=== PATIENT | female | born 1970 | race Two or more races ===

== ENCOUNTER 2019-10-18 23:32 | Emergency (ER) | payer MEDICAID ==
[~2019-10-18] VITALS: Ht 165.1 cm; Wt 72.6 kg
[2019-10-18 23:36] VITALS: BP 114/72
[2019-10-19] MEDS ORDERED: LIDOCAINE 1% HCL (LOCAL ANESTH.) INJ 20ML MDV IJ ONE (00:45)
[2019-10-19] MEDS ORDERED: BACITRACIN TOP OINT 1 UD PKG TOP ONE (00:45)
[2019-10-19] MEDS ORDERED: traMADol HCL 50 MG TAB PO ONE (00:45)
[2019-10-19] MEDS ORDERED: cefTRIAXone SOD 1,000 MG VL IM ONE (02:00)
== END 2019-10-19 02:18 | disposition home or self-care (01) ==
LOC: EDBD 23:32 → ER 23:34
DX: S61.210A Laceration without foreign body of right index finger without damage to nail, initial encounter (principal); X58.XXXA Exposure to other specified factors, initial encounter; Y93.89 Activity, other specified; Y92.89 Other specified places as the place of occurrence of the external cause; Y99.8 Other external cause status
CPT/HCPCS: 12002; 29130; 73130; 96372; 99283; J0696; J2001

== ENCOUNTER 2021-05-27 04:25 | Emergency (ER) | payer MEDICAID ==
[~2021-05-27] VITALS: Ht 160 cm; Wt 76.2 kg
[2021-05-27 07:12] LABS: Urine Bacteria FEW /hpf (None Seen); Urine Blood Negative /uL (Negative); Urine Specific Gravity 1.019 (1.001-1.035); Urine WBC 3 /hpf (0 - 5)
[2021-05-27 07:22] LABS: Alcohol, Urine < 3.0 mg/dL (0-10); Amphetamine Screen, Urine POSITIVE (NEGATIVE); Barbiturate Scree,Urine NEGATIVE (NEGATIVE); Benzodiazephine Screen, Urine NEGATIVE (NEGATIVE); Cannabinoid Screen, Urine NEGATIVE (NEGATIVE); Cocaine Screen, Urine NEGATIVE (NEGATIVE); Opiate Scree,Urine NEGATIVE (NEGATIVE); Phencyclidine Screen, Urine NEGATIVE (NEGATIVE)
[2021-05-27 07:23] LABS: Basophils # (auto) 0.1 10 ^3/uL (0-0.2); Basophils % (auto) 0.9 % (0.0-2.0); Eosinophils # (auto) 0.2 10 ^3/uL (0-0.8); Eosinophils % (auto) 2.6 % (0.0-7.0); Hemoglobin 11.5 g/dL (12.2-16.2); Lymphocytes # (auto) 1.8 10 ^3/uL (0.4-5.4); Mean Corpuscular Hemoglobin 25.5 pg (28.0-32.0); Mean Corpuscular Volume 79.8 fL (80.0-100.0); Monocytes # (auto) 0.6 10 ^3/uL (0-1.3); Monocytes % (auto) 7.5 % (0.0-12.0); Neutrophils # (auto) 5.8 10 ^3/uL (1.6-8.6); Red Blood Cells 4.51 10^6/uL (4.0-5.20); Red Cell Distribution Width 16.1 % (11.8-14.3); White Blood Cell 8.6 10^3/uL (4.4-10.8)
[2021-05-27 07:28] LABS: Potassium 4.2 mmol/L (3.5-5.1)
[2021-05-27 07:34] LABS: Albumin 2.9 g/dL (3.4-5.0); BUN/Creatinine Ratio 24.4; Bilirubin, Total 0.1 mg/dL (0.2-1.0); Calcium 8.7 mg/dL (8.5-10.1); Total Protein 7.2 g/dL (6.4-8.2)
[2021-05-27] MEDS ORDERED: KETOROLAC TROMETH 60MG/2ML VIAL IM ONE (07:45)
[2021-05-27 09:08] VITALS: BP 131/74
== END 2021-05-27 08:58 | disposition home or self-care (01) ==
LOC: ER 04:25
DX: N20.0 Calculus of kidney (principal); K80.20 Calculus of gallbladder without cholecystitis without obstruction; F10.10 Alcohol abuse, uncomplicated; F15.10 Other stimulant abuse, uncomplicated; J45.909 Unspecified asthma, uncomplicated; F17.210 Nicotine dependence, cigarettes, uncomplicated; Y90.0 Blood alcohol level of less than 20 mg/100 ml
CPT/HCPCS: 36415; 74176; 80053; 80307; 81001; 85025; 96372; 99284; J1885

== ENCOUNTER 2022-02-25 16:27 | Emergency (ER) | payer MEDICAID | END 2022-02-25 17:05 | disposition left against medical advice (07) | LOC: EDBD 16:27 → ER 16:27 → EDUNIT# 16:27 → ER 17:05 | DX: R06.02 Shortness of breath (principal); Z53.21 Procedure and treatment not carried out due to patient leaving prior to being seen by health care provider ==

== ENCOUNTER 2023-01-12 08:21 | Emergency (ER) | payer MEDICAID ==
[~2023-01-12] VITALS: Ht 160 cm; Wt 72.7 kg
[2023-01-12] MEDS ORDERED: SODIUM CHLORIDE 0.9% 1,000 ML IV ONE (08:45)
[2023-01-12 08:56] LABS: Basophils # (auto) 0.1 10 ^3/uL (0-0.2); Basophils % (auto) 0.6 % (0.0-2.0); Eosinophils # (auto) 0.2 10 ^3/uL (0-0.8); Eosinophils % (auto) 1.7 % (0.0-7.0); Hematocrit 37.8 % (36.0-46.0); Hemoglobin 11.9 g/dL (12.2-16.2); Lymphocytes # (auto) 1.7 10 ^3/uL (0.4-5.4); Lymphocytes % (auto) 18.6 % (10.0-50.0); Mean Corpuscular Hemoglobin 24.6 pg (28.0-32.0); Mean Corpuscular Hgb Conc. 31.5 g/dL (32.0-36.0); Monocytes # (auto) 0.4 10 ^3/uL (0-1.3); Monocytes % (auto) 4.8 % (0.0-12.0); Neutrophils # (auto) 6.7 10 ^3/uL (1.6-8.6); Neutrophils % (auto) 74.3 % (37.0-80.0); Nucleated Red Blood Cells % 0.1 %; Red Blood Cells 4.85 10^6/uL (4.0-5.20); Red Cell Distribution Width 18.5 % (11.8-14.3)
[2023-01-12 09:10] LABS: Calcium 8.2 mg/dL (8.5-10.1); Magnesium 2.4 mg/dL (1.6-2.6); Potassium 3.8 mmol/L (3.5-5.1)
[2023-01-12 09:14] LABS: BUN/Creatinine Ratio 13.9 (10.0-20.0); Bilirubin, Total 0.3 mg/dL (0.2-1.0); Total Protein 7.1 g/dL (6.4-8.2)
[2023-01-12 09:28] LABS: INR 1.02 (0.9-1.15); Partial Thromboplastin Time 26.2 SEC (24.5-34.5)
[2023-01-12 13:19] VITALS: BP 135/92; PULSE 75; RESP 21; TEMP 97.9; O2SAT 98
== END 2023-01-12 13:22 | disposition home or self-care (01) ==
LOC: ER 08:21 → EDBD 08:21 → ER 13:22
DX: T67.5XXA Heat exhaustion, unspecified, initial encounter (principal); E86.0 Dehydration; J45.909 Unspecified asthma, uncomplicated; J44.9 Chronic obstructive pulmonary disease, unspecified; F17.210 Nicotine dependence, cigarettes, uncomplicated; F10.90 Alcohol use, unspecified, uncomplicated; Z98.51 Tubal ligation status; X58.XXXA Exposure to other specified factors, initial encounter; Y93.89 Activity, other specified; Y92.89 Other specified places as the place of occurrence of the external cause; Y99.8 Other external cause status
CPT/HCPCS: 36415; 71045; 80053; 82962; 83735; 83880; 84484; 85025; 85610; 85730; 93005; 96360; 99285; J7030

== ENCOUNTER 2024-05-04 18:59 | Inpatient (IN) | payer MEDICAID ==
[~2024-05-04] VITALS: Ht 157.5 cm; Wt 94.4 kg
--- NOTE | 2024-05-04 19:13 | ECG ---
[facility] Test Date: 2024-05-04 Test Time: 19:12:39 Pat Name: YASMIN MENA Department: ER Room: Gender: F Patient Observation Assistant: SVETLANA : 1970 Requested By: SANAZ RICKETTS Order Number: [id number] Reading MD: Measurements Intervals [place] Rate: 115 P: 60 MT: 145 QRS: 25 QRSD: 89 T: 118 QT: 331 QTc: 458 Interpretive Statements Sinus tachycardia Probable left atrial enlargement LVH with secondary repolarization abnormality Baseline wander in lead(s) V1,V2 Please click the below link to view image of tracing.
--- NOTE | 2024-05-04 19:21 | ED.PDOC ---
HPI Comments 53-year-old female came to ER due to chest pains. Patient does have history of methamphetamine abuse, and congestive heart failure. States she has been off her Lasix for over a month. For the past few days, patient has been having productive cough with yellowish green sputum, shortness of breath, and substernal chest pressure. Noted also episodes of diarrhea. Patient is saturating 98% on room air. Chief Complaint: Chest Pain Time Seen by MD: 19:20 Primary Care Provider: "I DON'T KNOW HIS NAME" Reviewed Notes: Nurses Notes Allergies: Coded Allergies: NO KNOWN ALLERGIES (Unverified , 10/18/19) Information Source: Patient Mode of Arrival: Ambulatory Severity: Moderate Timing: Days Duration: Since onset Prehospital treatment: None Location: Substernal Radiation: No Radiation Quality: Pressure, Aching Onset: With Light Exertion Cardiac Risk Factors: HTN PE Risk Factors: None History of: Similar pain in past Modifying Factors: Nothing Associated Signs and Symptoms: SOB, Diaphoresis Past Medical History PAST MEDICAL HISTORY: Asthma, CHF, COPD, Gallstones, Liver Surgical History: Tubal Ligation 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: No Pertinent INTERNET 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 Family History Family History: Reviewed,noncontributory to illness, Family hx of DM Social History Smoker: Cigarettes Alcohol: Occasionally Drugs: Methamphetamine Lives In: Home Constitutional: reports: fatigue, weakness; denies: chills, diaphoresis, fever, malaise, sweats, others EENTM: denies: blurred vision, double vision, ear bleeding, ear discharge, ear drainage, ear pain, ear ringing, eye pain, eye redness, hearing loss, mouth pain, mouth swelling, nasal discharge, nose bleeding, nose congestion, nose pain, photophobia, tearing, throat pain, throat swelling, voice changes, others Respiratory: reports: cough, SOB at rest, shortness of breath, SOB with excertion; denies: hemoptysis, orthopnea, stridor, wheezing, others Cardiovascular: reports: chest pain, dizzy spells, diaphoresis; denies: Dyspnea on exertion, edema, irregular heart beat, left arm pain, lightheadedness, palpitations, PND, syncope, others Gastrointestinal: denies: abdomen distended, abdominal pain, blood streaked bowels, constipated, diarrhea, dysphagia, difficulty swallowing, hematemesis, melena, nausea, poor appetite, poor fluid intake, rectal bleeding, rectal pain, vomiting, others Genitourinary: denies: abnormal vagina bleeding, burning, dyspareunia, dysuria, flank pain, frequency, hematuria, incontinence, pain, , vagina discharge, urgency, others Neurological: denies: dizziness, fainting, headache, left sided numbness, left sided weakness, numbness, paresthesia, pre-existing deficit, right sided numbness, right sided weakness, seizure, speech problems, tingling, tremors, weakness, others Musculoskeletal: denies: back pain, gout, joint pain, joint swelling, muscle pain, muscle stiffness, neck pain, others Integumetry: denies: bruises, change in color, change in hair/nails, dryness, laceration, lesions, lumps, rash, wounds, others Allergic/Immunocompromised: denies: Difficulty Healing, Frequent Infections, Hives, Itching, others Hematologic/Lymphatic: denies: anemia, blood clots, easy bleeding, easy bruising, swollen glands, others Endocrine: denies: excessive hunger, excessive sweating, excessive thirst, excessive urination, flushing, intolerance to cold, intolerance to heat, unexplained weight gain, unexplained weight loss, others Psychiatric: denies: anxiety, bipolar disorder, depression, hopeless, panic disorder, schizophrenia, sleepless, suicidal, others Physical Exam General Appearance: Mild Distress, Normal HEENT: Normal ENT Inspection, Pharynx Normal, TMs Normal Neck: Full Range of Motion, Non-Tender, Normal, Normal Inspection Respiratory: Chest Non-Tender, Decreased Breath Sounds, No Accessory Muscle Use, No Respiratory Distress Cardiovascular: No Edema, No JVD, No Murmur, No Gallop, Normal Peripheral Pulses, Regular Rate/Rhythm Breast Exam: Deferred Gastrointestinal: No Organomegaly, Non Tender, No Pulsatile Mass, Normal Bowel Sounds, Soft Genitalia: Deferred Pelvic: Deferred Rectal: Deferred Extremities: No calf tenderness, Normal capillary refill, Normal inspection, Normal range of motion, Non-tender, Pedal edema Musculoskeletal : Apperance: Normal Neurologic: Alert, screen and cyclone repairer II-XII nml as Tested, No Motor Deficits, Normal Affect, Normal Mood, No Sensory Deficits Cerebellar Function: Normal Reflexes: Normal Skin: Dry, Normal Color, Warm Lymphatic: No Adenopathy Was a procedure done? Was a procedure done?: No CP Differential Dx Differential Diagnosis: Angina, Anxiety / Panic Attack Differential Diagnosis: CHF, HTN Essential, Medical NonCompliance Differential Diagnosis: Angina, Chest Wall Pain, Costochondritis, Esophageal reflux/spasm, Gastritis, Myocardial Infarction X-Ray, Labs, Meds, VS Vital Signs Date Time Temp Pulse Resp B/P (MAP) Pulse Ox O2 Delivery O2 Flow Rate FiO2 05/04/24 19:12 115 05/04/24 19:11 99.0 119 20 140/87 (104) 96 Lab Test 05/04/24 20:05 05/04/24 19:15 Range/Units Troponin I High Sensitivity Pending 25 </=34 ng/L White Blood Count 7.9 4.4-10.8 10^3/uL Red Blood Count 4.48 4.0-5.20 10^6/uL Hemoglobin 8.9 L 12.2-16.2 g/dL Hematocrit 33.2 L 36.0-46.0 % Mean Corpuscular Volume 74.2 L 80.0-100.0 fL Mean Corpuscular Hemoglobin 19.8 L 28.0-32.0 pg Mean Corpuscular Hemoglobin Concent 26.7 L 32.0-36.0 g/dL Red Cell Distribution Width 19.3 H 11.8-14.3 % Platelet Count 248 140-450 10^3/uL Mean Platelet Volume 8.3 6.9-10.8 fL Neutrophils (%) (Auto) 76.5 37.0-80.0 % Lymphocytes (%) (Auto) 15.1 10.0-50.0 % Monocytes (%) (Auto) 5.4 0.0-12.0 % Eosinophils (%) (Auto) 2.1 0.0-7.0 % Basophils (%) (Auto) 0.9 0.0-2.0 % Neutrophils # (Auto) 6.1 1.6-8.6 10 ^3/uL Lymphocytes # (Auto) 1.2 0.4-5.4 10 ^3/uL Monocytes # (Auto) 0.4 0-1.3 10 ^3/uL Eosinophils # (Auto) 0.2 0-0.8 10 ^3/uL Basophils # (Auto) 0.1 0-0.2 10 ^3/uL Nucleated Red Blood Cells 0.4 % Platelet Estimate Pending Sodium Level 135 L 136-145 mmol/L Potassium Level 4.1 3.5-5.1 mmol/L Chloride Level 106 98-107 mmol/L Carbon Dioxide Level 24 20-31 mmol/L Anion Gap 5 5-15 Blood Urea Nitrogen 9 9-23 mg/dL Creatinine 0.73 0.550-1.02 mg/dL Glomerular Filtration Rate Calc 100 >90 mL/min BUN/Creatinine Ratio 12.3 10.0-20.0 Serum Glucose 175 H 74-106 mg/dL Calcium Level 8.3 L 8.7-10.4 mg/dL Total Bilirubin 0.4 0.2-1.0 mg/dL Aspartate Amino Transferase (AST) 24 13-40 U/L Alanine Aminotransferase (ALT) 42 H 7-40 U/L Alkaline Phosphatase 56 46-116 U/L Total Protein 6.6 5.7-8.2 g/dL Albumin 3.9 3.2-4.8 g/dL CHEST RADIOGRAPH FINDINGS: Lines and Tubes: None Lungs: No focal consolidation. Mild interstitial prominence which may be from lo w lung volume. Pleura: No effusion. No pneumothorax. Cardiomediastinal contours: [id number] cardiomegaly. Bones: No acute osseous abnormality. IMPRESSION: Mild interstitial prominence which may be from low lung volumes. Underlying mild pulmonary vascular congestion can not be excluded. Time of 1ST Reevaluation: 19:15 Reevaluation 1ST: Unchanged Patient Education/Counseling: Diagnosis, Treatment Family Education/Counseling: Diagnosis, Treatment Departure 1 Departure Time of Disposition: 20:16 (Patient presented with chest pain that was concerning for possible STEMI, ACS, PE, Pneumonia, Muscle Strain, COPD, Dissection. Data: 1. I ordered and reviewed the result of at least 3 labs including a CBC, BMP, and Troponin. 2. I independently interpreted the following tests: EKG which shows a sinus arrhythmia and Chest X-ray which shows pulmonary vascular congestion.Risk:This patient has a high risk of morbidity due to further diagnostic testing or treatment and may suffer from an acute cardiac or respiratory disorder. Workup reveals concern for CHF exacerbation and patient should be admitted for further workup and possible expert consultation. ) Impression: Primary Impression: Acute on chronic heart failure with reduced ejection fraction (HFrEF, <= 40%) and combined systolic and diastolic dysfunction Additional Impression: Acute chest pain Disposition: 09 ADMITTED INPATIENT Admit to: Med Surg Condition: Serious Critical Care Note Critical Care Time?: Yes (35 min-critical care time only) Critical care comment: Acute chest pain Authorized and Performed by: Sanaz Olivares MD Total critical care time: Approximately 38 minutes Due to a high probability of clinically significant, life threatening deterioration, the patient required my highest level of preparedness to intervene emergently and I personally spent this critical care time directly and personally managing the patient. This critical care time included obtaining a history; examining the patient; pulse oximetry; ordering and review of studies; arranging urgent treatment with development of a management plan; evaluation of patient's response to treatment; frequent reassessment; and, discussions with other providers. This critical care time was performed to assess and manage the high probability of imminent, life-threatening deterioration that could result in multi-organ failure. It was exclusive of separately billable procedures and treating other patients and teaching time. Please see my other sections and the rest of the note for further information on patient assessment and treatment. Stability Stability form required: No Heart Score Heart Score: Heart Score Response (Comments) Value History Moderate Suspicious 1 EKG Normal 0 Age 45-64 1 Risk Factors 1 or 2 risk factors 1 Troponin Normal limit 0 Total 3 I personally scribed for SANAZ OLIVARES MD ([email or web address]) on 05/04/24 at 19:21. Electronically submitted by Joel Singh ([employer]). I personally scribed for SANAZ OLIVARES MD ([email or web address]) on 05/04/24 at 19:44. Electronically submitted by Joel Singh ([employer]). SANAZ OLIVARES MD May 04, 2024 19:21
--- NOTE | 2024-05-04 19:40 | DVH ---
CHEST RADIOGRAPH Indication:CP Technique: Single frontal view of the chest was obtained Comparison: XY CHEST PORTABLE on DOS: 01/12/23 FINDINGS: Lines and Tubes: None Lungs: No focal consolidation. Mild interstitial prominence which may be from low lung volume. Pleura: No effusion. No pneumothorax. Cardiomediastinal contours: [id number] cardiomegaly. Bones: No acute osseous abnormality. IMPRESSION: Mild interstitial prominence which may be from low lung volumes. Underlying mild pulmonary vascular congestion can not be excluded.
[2024-05-04 19:46] LABS: Basophils # (auto) 0.1 10 ^3/uL (0-0.2); Basophils % (auto) 0.9 % (0.0-2.0); Eosinophils # (auto) 0.2 10 ^3/uL (0-0.8); Eosinophils % (auto) 2.1 % (0.0-7.0); Hematocrit 33.2 % (36.0-46.0); Hemoglobin 8.9 g/dL (12.2-16.2); Lymphocytes # (auto) 1.2 10 ^3/uL (0.4-5.4); Lymphocytes % (auto) 15.1 % (10.0-50.0); Mean Corpuscular Hemoglobin 19.8 pg (28.0-32.0); Mean Corpuscular Hgb Conc. 26.7 g/dL (32.0-36.0); Mean Corpuscular Volume 74.2 fL (80.0-100.0); Monocytes # (auto) 0.4 10 ^3/uL (0-1.3); Monocytes % (auto) 5.4 % (0.0-12.0); Neutrophils # (auto) 6.1 10 ^3/uL (1.6-8.6); Neutrophils % (auto) 76.5 % (37.0-80.0); Nucleated Red Blood Cells % 0.4 %; Platelet Count (auto) 248 10^3/uL (140-450); Red Blood Cells 4.48 10^6/uL (4.0-5.20); Red Cell Distribution Width 19.3 % (11.8-14.3); White Blood Cell 7.9 10^3/uL (4.4-10.8)
[2024-05-04 20:02] LABS: Alanine Aminotransferase 42 U/L (7-40); Albumin 3.9 g/dL (3.2-4.8); Alkaline Phosphatase 56 U/L (46-116); Anion Gap 5 (5-15); Aspartate Aminotransferase 24 U/L (13-40); BUN/Creatinine Ratio 12.3 (10.0-20.0); Blood Urea Nitrogen 9 mg/dL (9-23); Calcium 8.3 mg/dL (8.7-10.4); Carbon Dioxide 24 mmol/L (20-31); Chloride 106 mmol/L (98-107); Glucose 175 mg/dL (74-106); Potassium 4.1 mmol/L (3.5-5.1); Sodium 135 mmol/L (136-145)
[2024-05-04 20:03] LABS: Bilirubin, Total 0.4 mg/dL (0.2-1.0); Total Protein 6.6 g/dL (5.7-8.2)
[2024-05-04 20:31] VITALS: PULSE 118; RESP 20; O2SAT 97
[2024-05-04] MEDS ORDERED: ONDANSETRON HCL 4 MG/2 ML VIAL IV PRN (20:45)
[2024-05-04] MEDS ORDERED: ACETAMINOPHEN 325 MG TAB PO PRN (20:45)
[2024-05-04] MEDS ORDERED: NITROGLYCERIN 0.4 MG SL TAB SL PRN (20:45)
[2024-05-04] MEDS: FUROSEMIDE 40 MG/4 ML VIAL IV ONE (20:45)
[2024-05-04] MEDS ORDERED: MORPHINE SULFATE INJ 2 MG/ml SYRG IV PRN ×2 (20:45)
[2024-05-04 21:23] LABS: Hypochromia Marked; Ovalocytes FEW; Platelet Estimate Adequate; Tear Drop Cells FEW
[2024-05-04 21:31] LABS: Urine Bacteria None Seen /hpf (None Seen)
[2024-05-04 21:41] LABS: Urine Blood Negative /uL (Negative); Urine Clarity Clear (Clear); Urine Color Colorless (Yellow); Urine Protein, UAD Negative (Negative); Urine Specific Gravity 1.009 (1.001-1.035); Urine Urobilinogen Normal (Negative); Urine WBC <1 /hpf (0 - 5); Urine pH 6.5 (5.0-9.0)
[2024-05-04] MEDS: ENOXAPARIN SOD 40 MG/0.4 ML SYRINGE SC SCH (21:54)
[2024-05-04] MEDS: SODIUM CHLOR 0.9% PF (SALINE LOCK) 10ML VIAL/SYR IV SCH (21:55)
[2024-05-04 22:42] LABS: Urine Bacteria None Seen /hpf (None Seen)
--- NOTE | 2024-05-04 22:43 | DVHHPRES ---
History of Present Illness Resident Creating Document: MICHI KIRKPATRICK RESIDENT History of Present Illness YASMIN MENA is a 53 years old female with a PMH of CHF, COPD, asthma presented to the ED with the chief complaints of cough for past 2 days. Patient reported she has been having dry and productive cough for past 2 days which is associated with shortness of breath which is worsening with the chest pain which is pressure-like with no radiating, aggravating and relieving factors. Patient does report some episodes of orthopnea and PND. On my assessment patient denies fever, nausea, vomiting, palpitations, dizziness, diaphoresis, and other associated symptoms. Past Medical History CHF, COPD, asthma, gallstones, liver disease Past Surgical History BTL Review of Systems Constitutional: No: Fever, Chills, Sweats, Weakness, Malaise, Other Eyes: No: Pain, Vision change, Conjunctivae inflammation, Eyelid inflammation, Other, Redness ENT: No: Ear pain, Ear discharge, Nose pain, Nose discharge, Nose congestion, Mouth pain, Mouth swelling, Throat pain, Throat swelling, Other Respiratory: Cough, Shortness of breath, SOB with excertion Cardiovascular: Chest Pain Gastrointestinal: Nausea Genitourinary: No Dysuria, No Frequency, No Incontinence, No Hematuria, No Retention, No Other Musculoskeletal: No: other, neck pain, shoulder pain, arm pain, back pain, hand pain, leg pain, foot pain Skin: No: Rash, Lesions, Jaundice, Bruising, Other Neurological: No: Weakness, Numbness, Incoordination, Change in speech, Confusion, Seizures, Other Allergies: Coded Allergies: NO KNOWN ALLERGIES (Unverified , 10/18/19) Medications Current Medications Medications Dose Ordered Sig/Nam Route Start Time Stop Time Status Last Admin Dose Admin Sodium Chloride 10 ml Q8HR IV 05/04/24 22:00 05/04/24 21:55 10 ML Ondansetron HCl 4 mg Q4HP PRN IV 05/04/24 20:45 Acetaminophen 650 mg Q6HP PRN PO 05/04/24 20:45 Morphine Sulfate 2 mg Q4HPRN PRN IV 05/04/24 20:45 Enoxaparin Sodium 40 mg DAILY SC 05/04/24 20:45 05/04/24 21:54 40 MG Nitroglycerin 0.4 mg Q5MINP PRN SL 05/04/24 20:45 Morphine Sulfate 2 mg Q30M PRN IV 05/04/24 20:45 Furosemide 40 mg DAILY IV 05/05/24 10:00 UNV Albuterol 2.5 mg Q6HPRN PRN NEB 05/04/24 22:45 UNV Exam Vital Signs Vital Signs Date Time Temp Pulse Resp B/P (MAP) Pulse Ox O2 Delivery O2 Flow Rate FiO2 05/04/24 21:00 114 20 135/85 (102) 97 05/04/24 20:31 Room Air* 0 21 05/04/24 20:31 98.8 98.8 Exam Pt is lying on bed General Appearance: Alert, Oriented X3, Cooperative, mild distress HEENT: Atraumatic, Mucous membranes moist/pink Respiratory: Decreased breath sounds Cardiovascular: Regular rate, Normal S1, Normal S2, No murmurs Abdominal: Active bowel sounds, Soft, no distention, no tenderness Extremities: 1+ edema, Normal pulses, No tenderness/swelling Skin: No Significant rash, except past surgical scars Neuro: Normal speech, sensorimotor deficits none Psych/Mental Status: Mental status NL, Mood NL Nurse was there as sharperone during examination Labs/Xrays Labs Test 05/04/24 22:11 05/04/24 21:15 05/04/24 19:15 Range/Units Urine Color Colorless Yellow Urine Clarity Clear Clear Urine pH 6.5 5.0-9.0 Urine Specific Calvin 1.009 1.001-1.035 Urine Protein Negative Negative Urine Ketones Negative Negative Urine Blood Negative Negative /uL Urine Nitrite Negative Negative Urine Bilirubin Negative Negative Urine Urobilinogen Normal Negative mg/dL Urine Leukocyte Esterase Negative Negative /uL Urine RBC 2 0 - 4 /hpf Urine WBC <1 0 - 5 /hpf Urine Squamous Epithelial Cells Few <5 /hpf Urine Bacteria None seen None Seen /hpf Urine Glucose Normal Normal mg/dL White Blood Count 7.9 4.4-10.8 10^3/uL Red Blood Count 4.48 4.0-5.20 10^6/uL Hemoglobin 8.9 L 12.2-16.2 g/dL Hematocrit 33.2 L 36.0-46.0 % Mean Corpuscular Volume 74.2 L 80.0-100.0 fL Mean Corpuscular Hemoglobin 19.8 L 28.0-32.0 pg Mean Corpuscular Hemoglobin Concent 26.7 L 32.0-36.0 g/dL Red Cell Distribution Width 19.3 H 11.8-14.3 % Platelet Count 248 140-450 10^3/uL Mean Platelet Volume 8.3 6.9-10.8 fL Neutrophils (%) (Auto) 76.5 37.0-80.0 % Lymphocytes (%) (Auto) 15.1 10.0-50.0 % Monocytes (%) (Auto) 5.4 0.0-12.0 % Eosinophils (%) (Auto) 2.1 0.0-7.0 % Basophils (%) (Auto) 0.9 0.0-2.0 % Neutrophils # (Auto) 6.1 1.6-8.6 10 ^3/uL Lymphocytes # (Auto) 1.2 0.4-5.4 10 ^3/uL Monocytes # (Auto) 0.4 0-1.3 10 ^3/uL Eosinophils # (Auto) 0.2 0-0.8 10 ^3/uL Basophils # (Auto) 0.1 0-0.2 10 ^3/uL Nucleated Red Blood Cells 0.4 % Platelet Estimate Adequate Hypochromasia (manual) Marked Microcytosis Moderate Tear Drop Cells Few Ovalocytes Few Sodium Level 135 L 136-145 mmol/L Potassium Level 4.1 3.5-5.1 mmol/L Chloride Level 106 98-107 mmol/L Carbon Dioxide Level 24 20-31 mmol/L Anion Gap 5 5-15 Blood Urea Nitrogen 9 9-23 mg/dL Creatinine 0.73 0.550-1.02 mg/dL Glomerular Filtration Rate Calc 100 >90 mL/min BUN/Creatinine Ratio 12.3 10.0-20.0 Serum Glucose 175 H 74-106 mg/dL Calcium Level 8.3 L 8.7-10.4 mg/dL Total Bilirubin 0.4 0.2-1.0 mg/dL Aspartate Amino Transferase (AST) 24 13-40 U/L Alanine Aminotransferase (ALT) 42 H 7-40 U/L Alkaline Phosphatase 56 46-116 U/L Total Protein 6.6 5.7-8.2 g/dL Albumin 3.9 3.2-4.8 g/dL Assessment/Plan Assessment/Plan # ? systolic vs diastolic CHF exacerbation -ordered BNP -ordered echocardiogram, pending -currently on Lasix 40 mg IV -consider cardiology evaluation if needed -strict I&O -CXR showed pulmonary vascular congestion # ? COPD exacerbation -currently on albuterol med neb # tobacco dependence # tobacco abuse disorder -counseled regarding smoking cessation for more than 17 minutes -consider nicotine patch if needed # methamphetamine abuse disorder -counseled regarding cessation for more than 17 minutes # chronic microcytic, hypochromic anemia -monitor lab -ordered iron panel Lovenox for now No gi ppx Cardiac diet for now Discussed with the patient for more than 27 minutes: Full code status Case management discussed with Dr. Mendez, patient and nurse Plan discussed with: Patient My Orders Orders - MICHI KIRKPATRICK RESIDENT Procedure Category Date Status Time Admit ADMIT 05/04/24 Transmitted 20:31 Allergies MARTA 05/04/24 In Process 20:31 Code Status CODE 05/04/24 Transmitted 20:31 2 Gm Sodium Diet DIET 05/05/24 Transmitted Breakfast Sodium Chloride Lock PHA 05/04/24 In Process (Saline Lock Ns) 22:00 Ondansetron Hcl PHA 05/04/24 In Process (Zofran) 20:45 Complete Blood Count LAB 05/05/24 Verified 04:00 Comprehensive LAB 05/05/24 Verified Metabolic Panel 04:00 Cardiac DIET 05/05/24 Transmitted Diet-2gna,Lofat,Lochol Breakfast Echo 2d Mode Cardiac US 05/04/24 Logged DOP 20:31 Acetaminophen Tablet PHA 05/04/24 In Process (Tylenol Tablet) 20:45 Morphine Sulfate PHA 05/04/24 In Process Injection 20:45 Enoxaparin Sodium PHA 05/04/24 In Process (Lovenox) 20:45 Nitroglycerin PHA 05/04/24 In Process Sublingual (Ntrostat 20:45 Morphine Sulfate PHA 05/04/24 In Process Injection 20:45 Oxygen By Nasal RT 05/04/24 Transmitted Cannula 20:31 Stat Ekg For Chest MARTA 05/04/24 In Process Pain 20:31 Notify Of Changes MARTA 05/04/24 In Process From Base 20:31 Qa Specialist For MARTA 05/04/24 In Process 24 Hours 20:31 Emergency Dysrhythmia MARTA 05/04/24 In Process Protocol 20:31 Rhythm Strips Once MARTA 05/04/24 In Process Every Shift 20:31 B-Type Natriuretic LAB 05/04/24 In Process Peptide 20:31 PTPTT LAB 05/04/24 Logged 22:20 Hemoglobin A1c LAB 05/04/24 Logged 22:20 Drug Screen LAB 05/04/24 Logged 22:20 Vitamin D, 25-Hydroxy LAB 05/04/24 Logged 22:20 Vitamin B12 LAB 05/04/24 Logged 22:20 Urinalysis LAB 05/04/24 Logged 22:20 Thyroid Stimulating LAB 05/04/24 Logged Hormone 22:20 Bilat Lower Dvt US 05/04/24 Logged 22:28 D-Dimer LAB 05/04/24 Logged 22:20 Furosemide Injection PHA 05/05/24 Logged (Lasix Injection) 10:00 Albuterol Medneb PHA 05/04/24 Logged (Ventolin Medneb) 22:45 MICHI KIRKPATRICK RESIDENT May 04, 2024 22:43
[2024-05-04] MEDS ORDERED: ALBUTEROL SULF 2.5 MG/0.5ML(0.5%) NEB SOLN NEB PRN (22:45)
[2024-05-04 22:57] LABS: % Iron Saturation 6.9 % (15-50)
[2024-05-04 22:59] LABS: Urine Blood Negative /uL (Negative); Urine Clarity Clear (Clear); Urine Color Colorless (Yellow); Urine Mucus FEW (None Seen); Urine Protein, UAD Negative (Negative); Urine Specific Gravity 1.009 (1.001-1.035); Urine Urobilinogen Normal (Negative); Urine WBC 1 /hpf (0 - 5)
[2024-05-04 23:05] LABS: INR 1.03 (0.9-1.15); Partial Thromboplastin Time 24.4 SEC (24.5-34.5); Prothrombin Time 10.9 sec (9.3-11.8)
--- NOTE | 2024-05-04 23:05 | DVH ---
Bilateral lower extremity venous duplex Clinical History: pain in legs Comparison: None Technique: Duplex Doppler evaluation of the deep venous systems of both lower extremities from the common femora l veins to the popliteal veins including color Doppler and spectral/pulsed waveform analysis was perf ormed. Findings: RIGHT SIDE: The common femoral vein demonstrates appropriate compressibility and waveform variability. There is compressibility/patency of the great saphenous vein at the proximal thigh. The femoral vein demonstrates appropriate compressibility and waveform variability. The deep femoral vein demonstrates appropriate compressibility and waveform variability. The popliteal vein demonstrates appropriate compressibility and waveform variability. There is normal compressibility at the tibioperoneal trunk. LEFT SIDE: The common femoral vein demonstrates appropriate compressibility and waveform variability. There is compressibility/patency of the great saphenous vein at the proximal thigh. The femoral vein demonstrates appropriate compressibility and waveform variability. The deep femoral vein demonstrates appropriate compressibility and waveform variability. The popliteal vein demonstrates appropriate compressibility and waveform variability. There is normal compressibility at the tibioperoneal trunk. Impression: 1. No right or left femoropopliteal venous thrombosis.
[2024-05-04 23:15] VITALS: BP 118/71; PULSE 110; PULSE 122; RESP 18; TEMP 97.6; O2SAT 96
[2024-05-05] VITALS (12 sets, daily range): BP systolic 94–135; BP diastolic 58–85; PULSE 92–117; RESP 16–20; TEMP 97.7–98.7; O2SAT 94–100
[2024-05-05 07:31] LABS: Basophils # (auto) 0.1 10 ^3/uL (0-0.2); Eosinophils # (auto) 0.2 10 ^3/uL (0-0.8); Eosinophils % (auto) 2.4 % (0.0-7.0); Hematocrit 31.4 % (36.0-46.0); Hemoglobin 9.3 g/dL (12.2-16.2); Lymphocytes # (auto) 1.8 10 ^3/uL (0.4-5.4); Lymphocytes % (auto) 23.1 % (10.0-50.0); Mean Corpuscular Hemoglobin 19.7 pg (28.0-32.0); Mean Corpuscular Hgb Conc. 29.6 g/dL (32.0-36.0); Mean Corpuscular Volume 66.5 fL (80.0-100.0); Monocytes # (auto) 0.8 10 ^3/uL (0-1.3); Neutrophils # (auto) 4.9 10 ^3/uL (1.6-8.6); Neutrophils % (auto) 63.5 % (37.0-80.0); Nucleated Red Blood Cells % 0.3 %; Platelet Count (auto) 273 10^3/uL (140-450); Red Blood Cells 4.73 10^6/uL (4.0-5.20); Red Cell Distribution Width 18.5 % (11.8-14.3); White Blood Cell 7.7 10^3/uL (4.4-10.8)
[2024-05-05 07:36] LABS: Alanine Aminotransferase 34 U/L (7-40); Alkaline Phosphatase 53 U/L (46-116); Anion Gap 7 (5-15); Aspartate Aminotransferase 20 U/L (13-40); BUN/Creatinine Ratio 14.1 (10.0-20.0); Bilirubin, Total 0.5 mg/dL (0.2-1.0); Blood Urea Nitrogen 10 mg/dL (9-23); Calcium 8.9 mg/dL (8.7-10.4); Carbon Dioxide 26 mmol/L (20-31); Chloride 106 mmol/L (98-107); Glucose 121 mg/dL (74-106); Potassium 3.5 mmol/L (3.5-5.1); Sodium 139 mmol/L (136-145)
[2024-05-05] MEDS ORDERED: IPRATROPIUM BROM 0.5 MG/2.5ML INH SOL NEB SCH (09:15)
[2024-05-05] MEDS: ERGOCALCIFEROL 50,000 UNIT(1.25MG) CAP PO SCH (09:36)
[2024-05-05] MEDS: POTASSIUM EFFERVESENT TAB 25 MEQ PO ONE (09:37)
[2024-05-05] MEDS: FERROUS SULFATE 325mg EC TAB PO SCH (09:41)
[2024-05-05] MEDS: FUROSEMIDE 40 MG/4 ML VIAL IV SCH (09:44)
--- NOTE | 2024-05-05 09:50 | DVHINCON2 ---
Date Seen: May 05, 2024 Referring Physician MD Rakan Reason for Consultation CHF exacerbation History of Present Illness This is a 53-year-old female who presented to the emergency room with a chief complaint of chest pain for three days. Describes her chest pain as substernal, nonradiating, non provoked, pressure-like, and associated with ONTIVEROS, PND, SOTO, and lower extremity edema. The patient reports she was diagnosed with unspecified congestive heart failure at [facility] approximately two months ago. Reports running out of Lasix for over a month. Somehow she has failed to follow up with a counter molder in the outpatient setting. Admits to methamphetamine use since 2020 and quitting two weeks ago. She underwent a 12 lead electrocardiogram revealing a sinus tachycardia rhythm in the 110s bpm. Serial troponin levels are negative. Significant medical history includes unspecified congestive heart failure, COPD without O2 dependence, prediabetes, smoking history times 19 pack-years, methamphetamine use, and obesity. Past Medical History Past medical history reviewed. No other significant than mentioned above. Past Surgical History BTL Bilateral ears Family History: Patient reports no known family medical history. Family History Family history reviewed. Social History See HPI. Denies any use of alcohol. Allergies: Coded Allergies: NO KNOWN ALLERGIES (Unverified , 10/18/19) Home Meds Active Scripts Furosemide (Lasix) 20 Mg Tb, 1 TAB PO DAILY, #90 TAB 1 Refill Prov:JESSY AG MD 05/05/24 Spironolactone (Aldactone) 25 Mg Tab, 12.5 MG PO DAILY for 30 Days, #15 TAB Prov:JESSY AG MD 05/05/24 Metoprolol Tartrate (Lopressor) 25 Mg Tb, 12.5 MG PO BID for 30 Days, #30 TAB Prov:JESSY AG MD 05/05/24 Lisinopril (Lisinopril) 5 Mg Tab, 2.5 MG PO DAILY for 30 Days, #15 TAB Prov:JESSY AG MD 05/05/24 Empagliflozin (Jardiance) 10 Mg Tab, 10 MG PO DAILY for 30 Days, #30 TAB Prov:JESSY AG MD 05/05/24 Home Meds Home medications reviewed. Current Medications Current Medications Medications (Trade) Dose Ordered Sig/Nam Route PRN Reason Start Time Stop Time Status Last Admin Sodium Chloride (Saline Lock Ns) 10 ml Q8HR IV 05/04/24 22:00 05/05/24 05:05 Ondansetron HCl (Zofran) 4 mg Q4HP PRN IV NAUSEA / VOMITING 05/04/24 20:45 Acetaminophen (Tylenol Tablet) 650 mg Q6HP PRN PO PAIN SCALE 1-3 OR TEMP>100.4 05/04/24 20:45 Morphine Sulfate 2 mg Q4HPRN PRN IV SEVERE PAIN (7-10 PAIN SCALE) 05/04/24 20:45 Enoxaparin Sodium (Lovenox) 40 mg DAILY SC 05/04/24 20:45 05/05/24 09:44 Nitroglycerin (Ntrostat Sublingual) 0.4 mg Q5MINP PRN SL FOR CHEST PAIN 05/04/24 20:45 Morphine Sulfate 2 mg Q30M PRN IV FOR CHEST PAIN 05/04/24 20:45 Furosemide (Lasix Injection) 40 mg DAILY IV 05/05/24 10:00 Albuterol (Ventolin Medneb) 2.5 mg Q6HPRN PRN NEB SHORTNESS OF BREATH 05/04/24 22:45 05/05/24 09:11 DC Ergocalciferol (Vitamin D 50,000 Unit) 50,000 unit Q7D PO 05/05/24 08:45 05/05/24 09:36 Ferrous Sulfate 325 mg BIDWM PO 05/05/24 08:45 05/05/24 09:41 Ipratropium [place] (Atrovent Medneb) 0.5 mg Q4HWA NEB 05/05/24 09:15 Levalbuterol HCl (Xopenex Medneb) 0.625 mg Q6HR NEB 05/05/24 09:15 Review of Systems Constitutional: No symptom reported Ears, Nose, & Throat: No symptom reported Eyes: No symptom reported Neurological: ONTIVEROS Pulmonary/Respiratory: SOB Cardiovascular: Chest pain Gastrointestinal: No symptom reported Genitourinary: No symptom reported Musculoskeletal: No symptom reported Skin: No symptom reported Psychiatric: No symptom reported Endocrine: No symptom reported Hemotologic/Lymphatic: No symptom reported Vital Signs Vital Signs Date Time Temp Pulse Resp B/P (MAP) Pulse Ox O2 Delivery O2 Flow Rate FiO2 05/05/24 09:44 94/70 05/05/24 09:00 97.7 92 18 97 97.7 05/05/24 00:21 0.0 21 05/04/24 23:15 Room Air* Physical Exam General Appearance: Disheveled. Unkept. Obese. Moderate respiratory distress Head Exam: Normal inspection Neck Exam: Normal inspection. Non-tender. Normal alignment Pulmonary/Respiratory: Chest non-tender. Diminished bilateral breath sounds Cardiovascular/Chest: Regular rate and rhythm. S1, S2. NSR. No murmurs. No JVD. Peripheral Pulses: 2+ Radial (R). 2+ Radial (L). 2+ Pedal (R). 2+ Pedal (L) Abdominal Exam: Normal bowel sounds. Soft. Nontender. No hepatospenomegaly. No masses Ankle Exam: Negative ankle edema Lower extremities: Negative lower extremity edema Neuro/Mental Status: A&O x3. Coherent Thoughts/Psych: Normal thought pattern. Anxious Appearance: In no acute distress Skin Exam: Normal inspection. Normal color. Warm. Dry Labs/Diagnostic Data Labs Test 05/05/24 06:00 05/04/24 22:11 05/04/24 21:15 05/04/24 19:15 Range/Units White Blood Count 7.7 4.4-10.8 10^3/uL Red Blood Count 4.73 4.0-5.20 10^6/uL Hemoglobin 9.3 L 12.2-16.2 g/dL Hematocrit 31.4 L 36.0-46.0 % Mean Corpuscular Volume 66.5 #L 80.0-100.0 fL Mean Corpuscular Hemoglobin 19.7 L 28.0-32.0 pg Mean Corpuscular Hemoglobin Concent 29.6 L 32.0-36.0 g/dL Red Cell Distribution Width 18.5 H 11.8-14.3 % Platelet Count 273 140-450 10^3/uL Mean Platelet Volume 8.5 6.9-10.8 fL Neutrophils (%) (Auto) 63.5 37.0-80.0 % Lymphocytes (%) (Auto) 23.1 10.0-50.0 % Monocytes (%) (Auto) 10.0 0.0-12.0 % Eosinophils (%) (Auto) 2.4 0.0-7.0 % Basophils (%) (Auto) 1.0 0.0-2.0 % Neutrophils # (Auto) 4.9 1.6-8.6 10 ^3/uL Lymphocytes # (Auto) 1.8 0.4-5.4 10 ^3/uL Monocytes # (Auto) 0.8 0-1.3 10 ^3/uL Eosinophils # (Auto) 0.2 0-0.8 10 ^3/uL Basophils # (Auto) 0.1 0-0.2 10 ^3/uL Nucleated Red Blood Cells 0.3 % Sodium Level 139 136-145 mmol/L Potassium Level 3.5 3.5-5.1 mmol/L Chloride Level 106 98-107 mmol/L Carbon Dioxide Level 26 20-31 mmol/L Anion Gap 7 5-15 Blood Urea Nitrogen 10 9-23 mg/dL Creatinine 0.71 0.550-1.02 mg/dL Glomerular Filtration Rate Calc 103 >90 mL/min BUN/Creatinine Ratio 14.1 10.0-20.0 Serum Glucose 121 H 74-106 mg/dL Calcium Level 8.9 8.7-10.4 mg/dL Magnesium Level 2.0 1.6-2.6 mg/dL Total Bilirubin 0.5 0.2-1.0 mg/dL Aspartate Amino Transferase (AST) 20 13-40 U/L Alanine Aminotransferase (ALT) 34 7-40 U/L Alkaline Phosphatase 53 46-116 U/L Total Protein 7.0 5.7-8.2 g/dL Albumin 4.0 3.2-4.8 g/dL Prothrombin Time 10.9 9.3-11.8 sec Prothrombin Time INR 1.03 0.9-1.15 Activated Partial Thromboplast Time 24.4 L 24.5-34.5 SEC D-Dimer, Quantitative 0.69 H 0.0-0.49 mg/L FEU Hemoglobin A1c 6.1 H <5.7 % A1C Iron Level 33 L 50-170 ug/dL Total Iron Binding Capacity 477 H 250-425 ug/dL Percent Iron Saturation 6.9 L 15-50 % Troponin I High Sensitivity 25 </=34 ng/L B-Type Natriuretic Peptide 563.72 0-100 pg/mL Vitamin B12 Level 819 211-911 pg/mL Vitamin D 25-Hydroxy 36.0 30.0-100 ng/mL Thyroid Stimulating Hormone (TSH) 2.54 0.55-4.78 uIU/mL Urine Color Colorless Yellow Urine Clarity Clear Clear Urine pH 7.0 5.0-9.0 Urine Specific [place] 1.009 1.001-1.035 Urine Protein Negative Negative Urine Ketones Negative Negative Urine Blood Negative Negative /uL Urine Nitrite Negative Negative Urine Bilirubin Negative Negative Urine Urobilinogen Normal Negative mg/dL Urine Leukocyte Esterase Negative Negative /uL Urine RBC 2 0 - 4 /hpf Urine WBC 1 0 - 5 /hpf Urine Squamous Epithelial Cells Few <5 /hpf Urine Bacteria None seen None Seen /hpf Urine Mucus Few None Seen Urine Glucose Normal Normal mg/dL Platelet Estimate Adequate Hypochromasia (manual) Marked Microcytosis Moderate Tear Drop Cells Few Ovalocytes Few Assessment Acute on chronic decompensated HFrEF 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 Patrick) The patient presents with a more likely decompensated drug-induced cardiomyopathy with highly suspected HFrEF. Initiate GDMT for CHF and uptitrate as tolerated. Strict I&Os, daily weight and fluid restrictions. Continue transthoracic echocardiogram to further assess cardiac function. Strongly counseled on tobacco and methamphetamine use cessation as well as medical compliance. Monitor ECG changes and notify. Thank you for allowing us to p articipate in this patient's care. Please call if you have any questions or concerns. This medical document was created using an electronic medical record system with voice recognition software and computerized dictation system. Although this document has been carefully reviewed, there might still be some phonetic and typographical errors. Occasional wrong-word or ``sound-alike substitutions may have occurred due to the inherent limitations of voice recognition software. These areas are purely typographical due to imperfections of the software programs and do not reflect any compromise in the patient's medical care. Please read the chart carefully and recognize, using context, where these substitutions have occurred. Plan discussed with: Patient, Other Date of Service: May 05, 2024 Billing Provider: ANNIE PATRICK MD Cardiology Common Codes: 85206-QUEEXQQ INP/OBS CARE (High) CANDELARIO [facility] May 05, 2024 09:50
[2024-05-05] MEDS: METOPROLOL TARTRATE 25 MG TAB PO SCH (10:00)
[2024-05-05] MEDS: LISINOPRIL 5 MG TAB PO SCH (10:00)
[2024-05-05] MEDS: SPIRONOLACTONE 25 MG TAB PO SCH (11:10)
[2024-05-05] MEDS: EMPAGLIFLOZIN 10 MG TAB PO SCH (11:10)
[2024-05-05] MEDS: FUROSEMIDE 20 MG/2 ML VIAL IV ONE (11:11)
[2024-05-05 11:17] LABS: Triglycerides 112 mg/dL (< 150)
[2024-05-05 11:18] LABS: LDL Cholesterol 84 mg/dL (< 100)
[2024-05-05 11:19] LABS: Cholesterol 134 mg/dL (< 200); HDL Cholesterol 41 mg/dL (40-59)
[2024-05-05] MEDS ORDERED: MET25T PO (11:49)
[2024-05-05] MEDS ORDERED: SPIR25TA PO (11:49)
[2024-05-05] MEDS ORDERED: FURO1TAB33 PO (11:49)
[2024-05-05] MEDS ORDERED: EMPA1TAB PO (11:49)
[2024-05-05] MEDS ORDERED: LISI-275 PO (11:49)
--- NOTE | 2024-05-05 12:21 | DVHDSRES ---
Discharge Summary Date of Admission Resident Creating Document: DON FOSTER RESIDENT May 04, 2024 at 20:31 Date of Discharge: May 05, 2024 Admitting Diagnosis Chest pain Labs/Diagnostic Data: Laboratory Results Test 05/05/24 06:00 05/04/24 22:11 05/04/24 21:15 05/04/24 19:15 White Blood Count 7.7 10^3/uL (4.4-10.8) Red Blood Count 4.73 10^6/uL (4.0-5.20) Hemoglobin 9.3 g/dL (12.2-16.2) Hematocrit 31.4 % (36.0-46.0) Mean Corpuscular Volume 66.5 fL (80.0-100.0) Mean Corpuscular Hemoglobin 19.7 pg (28.0-32.0) Mean Corpuscular Hemoglobin Concent 29.6 g/dL (32.0-36.0) Red Cell Distribution Width 18.5 % (11.8-14.3) Platelet Count 273 10^3/uL (140-450) Mean Platelet Volume 8.5 fL (6.9-10.8) Neutrophils (%) (Auto) 63.5 % (37.0-80.0) Lymphocytes (%) (Auto) 23.1 % (10.0-50.0) Monocytes (%) (Auto) 10.0 % (0.0-12.0) Eosinophils (%) (Auto) 2.4 % (0.0-7.0) Basophils (%) (Auto) 1.0 % (0.0-2.0) Neutrophils # (Auto) 4.9 10 ^3/uL (1.6-8.6) Lymphocytes # (Auto) 1.8 10 ^3/uL (0.4-5.4) Monocytes # (Auto) 0.8 10 ^3/uL (0-1.3) Eosinophils # (Auto) 0.2 10 ^3/uL (0-0.8) Basophils # (Auto) 0.1 10 ^3/uL (0-0.2) Nucleated Red Blood Cells 0.3 % Sodium Level 139 mmol/L (136-145) Potassium Level 3.5 mmol/L (3.5-5.1) Chloride Level 106 mmol/L (98-107) Carbon Dioxide Level 26 mmol/L (20-31) Anion Gap 7 (5-15) Blood Urea Nitrogen 10 mg/dL (9-23) Creatinine 0.71 mg/dL (0.550-1.02) Glomerular Filtration Rate Calc 103 mL/min (>90) BUN/Creatinine Ratio 14.1 (10.0-20.0) Serum Glucose 121 mg/dL (74-106) Calcium Level 8.9 mg/dL (8.7-10.4) Magnesium Level 2.0 mg/dL (1.6-2.6) Total Bilirubin 0.5 mg/dL (0.2-1.0) Aspartate Amino Transferase (AST) 20 U/L (13-40) Alanine Aminotransferase (ALT) 34 U/L (7-40) Alkaline Phosphatase 53 U/L (46-116) Total Protein 7.0 g/dL (5.7-8.2) Albumin 4.0 g/dL (3.2-4.8) Triglycerides Level 112 mg/dL (< 150) Cholesterol Level 134 mg/dL (< 200) LDL Cholesterol 84 mg/dL (< 100) HDL Cholesterol 41 mg/dL (40-59) Prothrombin Time 10.9 sec (9.3-11.8) Prothrombin Time INR 1.03 (0.9-1.15) Activated Partial Thromboplast Time 24.4 SEC (24.5-34.5) D-Dimer, Quantitative 0.69 mg/L FEU (0.0-0.49) Hemoglobin A1c 6.1 % A1C (<5.7) Iron Level 33 ug/dL (50-170) Total Iron Binding Capacity 477 ug/dL (250-425) Percent Iron Saturation 6.9 % (15-50) Troponin I High Sensitivity 25 ng/L (</=34) B-Type Natriuretic Peptide 563.72 pg/mL (0-100) Vitamin B12 Level 819 pg/mL (211-911) Vitamin D 25-Hydroxy 36.0 ng/mL (30.0-100) Thyroid Stimulating Hormone (TSH) 2.54 uIU/mL (0.55-4.78) Urine Color Colorless (Yellow) Urine Clarity Clear (Clear) Urine pH 7.0 (5.0-9.0) Urine Specific [place] 1.009 (1.001-1.035) Urine Protein Negative (Negative) Urine Ketones Negative (Negative) Urine Blood Negative /uL (Negative) Urine Nitrite Negative (Negative) Urine Bilirubin Negative (Negative) Urine Urobilinogen Normal mg/dL (Negative) Urine Leukocyte Esterase Negative /uL (Negative) Urine RBC 2 /hpf (0 - 4) Urine WBC 1 /hpf (0 - 5) Urine Squamous Epithelial Cells Few /hpf (<5) Urine Bacteria None seen /hpf (None Seen) Urine Mucus Few (None Seen) Urine Glucose Normal mg/dL (Normal) Platelet Estimate Adequate Hypochromasia (manual) Marked Microcytosis Moderate Tear Drop Cells Few Ovalocytes Few Other Laboratory Tests 05/05/24 06:00 Brief Hx & Hospital Course: Jasmin Karimi is a 53 years old female patient with PMHx of questionable congestive heart failure, COPD, asthma presented to the ER with a chief complaint of chest pain for the past 3 days. Chest pain is located across the chest, radiates to the back, associated with nausea, shortness of breaths, orthopnea, paroxysmal nocturnal dyspnea. Patient reports feeling viral flu-like symptoms which included fever, cough which was dry alongside nausea and later on developing shortness of breath and chest pain. She reports the chest pain is not related to exertion. Patient reports that she was recently diagnosed with congestive heart failure at [facility] and she ran out of her furosemide 20 mg 1 month back, she reports using methamphetamine, last use was reported 2 weeks earlier. During the hospital workup, patient underwent EKG which showed sinus tachycardia but otherwise unremarkable. Serial troponins were negative. BNP was 5 6 3, patient had bibasilar crackles and lower extremity pitting edema. Patient received furosemide 40 mg IV once followed by 20 mg b.i.d. cardiology was consulted, and patient was diagnosed with decompensated drug induced cardiomyopathy with probable heart failure with reduced ejection fraction. GDMT was initiated which included metoprolol 12.5 mg p.o. b.i.d., lisinopril 2.5 mg p.o. daily, spironolactone 12.5 mg p.o. daily. She was strongly counseled on tobacco and methamphetamine use cessation as well as medical compliance. 05/05/2024-patient is hemodynamically stable, on room air, feeling better since the admission and is therefore discharged home with the recommendation to follow up discharge clinic and primary care physician within 7-14 days. Patient is discharged on Jardiance 10 mg, lisinopril 2.5 mg, metoprolol 12.5 mg twice daily, spironolactone 12.5 mg daily, furosemide 20 mg daily. Patient agreed to the discharge planning. Consults/Reason for consult Cardiology consulted for chest pain and shortness of breath Operations or Procedures ORDERING PHYSICIAN: MICHI KIRKPATRICK PROCEDURE(s): BLDVT - BiLat Lower DVT REASON: pain in legs ORDER NUMBER(s): [id number], ACCESSION NUMBER(s): [id number] Bilateral lower extremity venous duplex Clinical History: pain in legs Comparison: None Technique: Duplex Doppler evaluation of the deep venous systems of both lower extremities from the common femoral veins to the popliteal veins including color Doppler and spectral/pulsed waveform analysis was performed. Findings: RIGHT SIDE: The common femoral vein demonstrates appropriate compressibility and waveform variability. There is compressibility/patency of the great saphenous vein at the proximal thigh. The femoral vein demonstrates appropriate compressibility and waveform variability. The deep femoral vein demonstrates appropriate compressibility and waveform variability. The popliteal vein demonstrates appropriate compressibility and waveform variability. There is normal compressibility at the tibioperoneal trunk. LEFT SIDE: The common femoral vein demonstrates appropriate compressibility and waveform variability. There is compressibility/patency of the great saphenous vein at the proximal thigh. The femoral vein demonstrates appropriate compressibility and waveform variability. The deep femoral vein demonstrates appropriate compressibility and waveform variability. The popliteal vein demonstrates appropriate compressibility and waveform variability. There is normal compressibility at the tibioperoneal trunk. Impression: 1. No right or left femoropopliteal venous thrombosis. RING PHYSICIAN: SANAZ RICKETTS MD PROCEDURE(s): CXRP - CHEST PORTABLE REASON: CP ORDER NUMBER(s): [id number], ACCESSION NUMBER(s): [id number] CHEST RADIOGRAPH Indication:CP Technique: Single frontal view of the chest was obtained Comparison: XY CHEST PORTABLE on DOS: 01/12/23 FINDINGS: Lines and Tubes: None Lungs: No focal consolidation. Mild interstitial prominence which may be from low lung volume. Pleura: No effusion. No pneumothorax. Cardiomediastinal contours: [id number] cardiomegaly. Bones: No acute osseous abnormality. IMPRESSION: Mild interstitial prominence which may be from low lung volumes. Underlying mild pulmonary vascular congestion can not be excluded. 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 Likely iron-deficiency anemia COPD-low likelihood of exacerbation Prediabetes, newly diagnosed Methamphetamine/nicotine dependence Medical noncompliance Obesity Discharge Disposition: Home Discharge Instruct/Medications Diet: Cardiac 2g Na,low cholest (2 gm sodium, low cholesterol) Activity: Light activity Follow Up/Referral: Follow up with primary care physician within 7-14 days Follow up with discharge clinic appointment within 7-14 days Discharge Statement: "Patient was advised to return to the ER or call 911 if any headaches, dizziness, shortness of breath, chest pain, abdominal pain, bleeding, fevers, or worsening of medical condition. Patient was counseled about treatment plan, medications, possible side effects, patientverbalized understanding. All questions were answered to the best of my ability. This discharge took greater then 30 minutes in planning, reviewing documentation, counseling the patient, and discussing with other team members." ASSESSMENT ASSESSMENT Assessment Date of Service: May 05, 2024 Billing Provider: JESSY AG MD Common Visit Codes: 39754-AOW/OBS DISCH DAY >30min DON FOSTER RESIDENT May 05, 2024 12:21 JESSY AG MD May 06, 2024 16:44
[2024-05-05] MEDS: LEVALBUTEROL HCL 1.25 MG/3 ML NEB NEB SCH (13:31)
[2024-05-05 13:32] LABS: Amphetamine Screen, Urine Neg (NEGATIVE); Benzodiazephine Screen, Urine Neg (NEGATIVE)
[2024-05-05] MEDS: IPRATROPIUM BROM 0.5 MG/2.5ML INH SOL NEB SCH (13:32)
[2024-05-05 13:33] LABS: Barbiturate Scree,Urine Neg (NEGATIVE); Cannabinoid Screen, Urine Neg (NEGATIVE); Cocaine Screen, Urine Neg (NEGATIVE); Opiate Scree,Urine Neg (NEGATIVE); Phencyclidine Screen, Urine Neg (NEGATIVE)
[2024-05-05] MEDS ORDERED: FUROSEMIDE 20 MG/2 ML VIAL IV SCH (18:00)
[2024-05-05] MEDS ORDERED: LEVALBUTEROL HCL 1.25 MG/3 ML NEB NEB SCH (18:00)
--- NOTE | 2024-05-05 19:20 | ECG ---
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
--- NOTE | 2024-05-06 11:41 | DVHSR ---
APPROVED REPORT EXAM: Two-dimensional and M-mode echocardiogram with Doppler and color Doppler. Blood Pressure: 119/82 mmHg INDICATION Chest Pain RISK FACTORS Obesity: Height: 5' 2", Weight: 208 DIMENSIONS LVDd6.0 (3.8-5.7cm)LA (2D)3.8 (1.9-4.0cm)Aortic Root3.0 (2.0-3.7cm) LVDs5.6 (2.5-4.0cm)LA (MM) (1.9-4.0cm)Aortic Cusp Exc1.8 (1.5-2.0cm) EF (%) 15.0 (55-70%)Rt. Atrium4.0 (1.9-4.0cm)Asc. Aorta cm IVSd1.0 (0.7-1.1cm)RV (D) (1.8-2.4cm) PWd1.1 (0.7-1.1cm) Mitral Valve MitralMitral Stenosis E wave0.80m/sMV Mean GR.mmHg A wave0.60m/sMV Peak GR.mmHg E/A ratio1.32D MVAcm2 Aortic Valve Aortic ValveAortic Stenosis V10.60m/Sj Mean GR.5mmHg V21.50m/Sj Peak GR.9mmHg LVOT Diameter2.3 (1.8-2.4cm)Doppler AVA1.66cm2 Pulmonic Valve V20.80m/s Conclusion Severely dilated left ventricle. Severely reduced left ventricular systolic function estimated eject ion fraction of 15% in a global fashion. There is a grade2 diastolic dysfunction. Normal right ventricular size and dimension. Normal right ventricular systolic function. Normal biatrial size and dimension. Normal aortic valve structure and function. Normal mitral valve structure and function. Normal tricuspid valve structure and function. The pulmonary valve is grossly normal. No pericardial effusion
--- NOTE | 2024-05-07 08:17 | ECG ---
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
== END 2024-05-05 17:50 | disposition home or self-care (01) | DRG 194 ==
LOC: ER 18:59 → TELE 20:31 → TELE-WESTW 23:15
PROVIDERS: ATTEND Emergency Medicine
DX: I11.0 Hypertensive heart disease with heart failure (principal); I42.7 Cardiomyopathy due to drug and external agent; D63.8 Anemia in other chronic diseases classified elsewhere; F15.10 Other stimulant abuse, uncomplicated; D50.9 Iron deficiency anemia, unspecified; E66.9 Obesity, unspecified; F17.210 Nicotine dependence, cigarettes, uncomplicated; J44.89 Other specified chronic obstructive pulmonary disease; I50.43 Acute on chronic combined systolic (congestive) and diastolic (congestive) heart failure; T50.905A Adverse effect of unspecified drugs, medicaments and biological substances, initial encounter; R73.03 Prediabetes; K80.20 Calculus of gallbladder without cholecystitis without obstruction; Z71.6 Tobacco abuse counseling; Z91.199 Patient's noncompliance with other medical treatment and regimen due to unspecified reason; Y92.89 Other specified places as the place of occurrence of the external cause; Z79.899 Other long term (current) drug therapy; Z68.38 Body mass index [BMI] 38.0-38.9, adult
CPT/HCPCS: 36415; 71045; 80053; 80061; 80307; 81001; 82306; 82607; 83036; 83540; 83550; 83735; 83880; 84443; 84484; 85025; 85379; 85610; 85730; 93005; 93306; 93970; 94640; 99291; G0378

== ENCOUNTER 2024-12-29 21:33 | Inpatient (IN) | payer MEDICAID ==
[~2024-12-29] VITALS: Ht 167.6 cm; Wt 96.1 kg
[~2024-12-29 21:33] MED LIST: EMPA1TAB PO; FURO1TAB33 PO; LISI-275 PO; MET25T PO; SPIR25TA PO
--- NOTE | 2024-12-29 21:58 | ECG ---
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
--- NOTE | 2024-12-29 21:58 | ED.PDOC ---
History of Present Illness HPI Comments 54 year old female with a history of gallstones, COPD and CHF brought in by EMS complaining of back pain. Pt states for the past 3 days she has been having constant, stabbing, lower back pain, radiating to her left and right lower abdomen. Pt states back pain worsens when bending forward or moving.. Pt also st ates her LLE feels numb, and she has been having urinary incontinence. This is associated with dysuria, urinary frequency, urgency, and hematuria. 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 Allergies: Coded Allergies: NO KNOWN ALLERGIES (Unverified , 10/18/19) Home Meds Active Scripts Furosemide (Lasix) 20 Mg Tb, 1 TAB PO DAILY, #90 TAB 1 Refill Prov:JESSY AG MD 05/05/24 Spironolactone (Aldactone) 25 Mg Tab, 12.5 MG PO DAILY for 30 Days, #15 TAB Prov:JESSY AG MD 05/05/24 Metoprolol Tartrate (Lopressor) 25 Mg Tb, 12.5 MG PO BID for 30 Days, #30 TAB Prov:JESSY GA MD 05/05/24 Lisinopril (Lisinopril) 5 Mg Tab, 2.5 MG PO DAILY for 30 Days, #15 TAB Prov:JESSY AG MD 05/05/24 Empagliflozin (Jardiance) 10 Mg Tab, 10 MG PO DAILY for 30 Days, #30 TAB Prov:JESSY AG MD 05/05/24 Information Source: Patient, Emergency Med Personnel Mode of Arrival: EMS Severity: Moderate Timing: Days Duration: Since onset Past Medical History PAST MEDICAL HISTORY: Asthma, CHF, COPD, Gallstones, Liver Surgical History: 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 History: No Pertinent FIELD TALENT QUALIFICATION SPECIALIST History Family History Family History: Reviewed,noncontributory to illness, Family hx of DM Social History Smoker: Cigarettes Alcohol: Occasionally Drugs: Methamphetamine Lives In: Home Constitutional: denies: chills, diaphoresis, fatigue, fever, malaise, sweats, weakness, others EENTM: denies: blurred vision, double vision, ear bleeding, ear discharge, ear drainage, ear pain, ear ringing, eye pain, eye redness, hearing loss, mouth pain, mouth swelling, nasal discharge, nose bleeding, nose congestion, nose pain, photophobia, tearing, throat pain, throat swelling, voice changes, others Respiratory: denies: cough, hemoptysis, orthopnea, SOB at rest, shortness of breath, SOB with excertion, stridor, wheezing, others Cardiovascular: denies: chest pain, dizzy spells, diaphoresis, Dyspnea on exertion, edema, irregular heart beat, left arm pain, lightheadedness, palpitat ions, PND, syncope, others Gastrointestinal: reports: abdominal pain (LLQ); denies: abdomen distended, blood streaked bowels, constipated, diarrhea, dysphagia, difficulty swallowing, hematemesis, melena, nausea, poor appetite, poor fluid intake, rectal bleeding, rectal pain, vomiting, others Genitourinary: reports: burning, dysuria, frequency, incontinence; denies: abnormal vagina bleeding, dyspareunia, flank pain, hematuria, pain, , vagina discharge, urgency, others Neurological: denies: dizziness, fainting, headache, left sided numbness, left sided weakness, numbness, paresthesia, pre-existing deficit, right sided numbness, right sided weakness, seizure, speech problems, tingling, tremors, weakness, others Musculoskeletal: reports: back pain Physical Exam General Appearance: No Apparent Distress, Obese HEENT: Other (Pupils and face symmetric. Moist mucous membranes. ) Neck: Full Range of Motion, Non-Tender, Normal Inspection, Supple Respiratory: Lungs Clear, No Accessory Muscle Use, No Respiratory Distress, Normal Breath Sounds Cardiovascular: No Edema, No JVD, Regular Rate/Rhythm Breast Exam: Deferred Gastrointestinal: LLQ, RLQ, Soft, Tenderness Genitalia: Deferred Pelvic: Deferred Rectal: Deferred Extremities: Normal inspection, Normal range of motion, Non-tender, No pedal edema Neurologic: Alert (Oriented x4), Normal Affect, Normal Mood Cerebellar Function: NOT DONE Reflexes: NOT DONE Skin: Dry, Normal Color, Warm Lymphatic: NOT DONE Was a procedure done? Was a procedure done?: No EKG EKG : Comments Sinus tach, rate 110, normal KS and QRS intervals, QTC 473, normal axis, normal QRS, minimal inferior ST-depression with other nonspecific T change Differential Dx Considerations may include: Musculoskeletal pain, disc disease, cauda equina, UTI, among others X-Ray, Labs, Meds, VS Vital Signs Date Time Temp Pulse Resp B/P (MAP) Pulse Ox O2 Delivery O2 Flow Rate FiO2 12/30/24 00:42 97.7 104 16 106/67 (80) 93 97.7 12/29/24 22:43 105 12/29/24 22:43 98.0 105 18 124/71 (88) 93 98.0 12/29/24 22:42 105 20 124/71 12/29/24 21:52 110 12/29/24 21:40 98.9 113 15 141/94 (110) 99 98.9 Lab Test 12/29/24 22:41 Range/Units White Blood Count 6.7 4.4-10.8 10^3/uL Red Blood Count 4.93 4.0-5.20 10^6/uL Hemoglobin 9.3 L 12.2-16.2 g/dL Hematocrit 31.6 L 36.0-46.0 % Mean Corpuscular Volume 64.0 L 80.0-100.0 fL Mean Corpuscular Hemoglobin 18.8 L 28.0-32.0 pg Mean Corpuscular Hemoglobin Concent 29.4 L 32.0-36.0 g/dL Red Cell Distribution Width 21.4 H 11.8-14.3 % Platelet Count 195 140-450 10^3/uL Mean Platelet Volume 8.7 6.9-10.8 fL Neutrophils (%) (Auto) 68.1 37.0-80.0 % Lymphocytes (%) (Auto) 20.2 10.0-50.0 % Monocytes (%) (Auto) 7.5 0.0-12.0 % Eosinophils (%) (Auto) 2.8 0.0-7.0 % Basophils (%) (Auto) 1.4 0.0-2.0 % Neutrophils # (Auto) 4.6 1.6-8.6 10 ^3/uL Lymphocytes # (Auto) 1.4 0.4-5.4 10 ^3/uL Monocytes # (Auto) 0.5 0-1.3 10 ^3/uL Eosinophils # (Auto) 0.2 0-0.8 10 ^3/uL Basophils # (Auto) 0.1 0-0.2 10 ^3/uL Nucleated Red Blood Cells 0.0 % Platelet Estimate Adequate Hypochromasia (manual) Marked Anisocytosis (manual) Moderate Microcytosis Marked Sodium Level 143 136-145 mmol/L Potassium Level 4.0 3.5-5.1 mmol/L Chloride Level 107 98-107 mmol/L Carbon Dioxide Level 28 20-31 mmol/L Anion Gap 8 5-15 Blood Urea Nitrogen 13 9-23 mg/dL Creatinine 0.81 0.550-1.02 mg/dL Glomerular Filtration Rate Calc 87 >90 mL/min BUN/Creatinine Ratio 16.0 10.0-20.0 Serum Glucose 105 74-106 mg/dL Calcium Level 9.6 8.7-10.4 mg/dL Total Bilirubin 0.3 0.2-1.0 mg/dL Aspartate Amino Transferase (AST) 27 13-40 U/L Alanine Aminotransferase (ALT) 28 7-40 U/L Alkaline Phosphatase 65 46-116 U/L Total Protein 7.2 5.7-8.2 g/dL Albumin 4.3 3.2-4.8 g/dL Current Medications Medications (Trade) Dose Ordered Sig/Nam Route Start Time Stop Time Status Last Admin Morphine Sulfate 4 mg ONCE ONCE IV 12/29/24 22:00 12/29/24 22:01 DC 12/29/24 22:42 Ondansetron HCl (Zofran) 4 mg ONCE ONCE IV 12/29/24 22:00 12/29/24 22:01 DC 12/29/24 22:43 Methocarbamol (Robaxin) 1,000 mg ONCE ONCE PO 12/29/24 22:00 12/29/24 22:01 DC 12/29/24 22:41 PROCEDURE(s): ABPL - CT AB PEL WO CON-NO ORAL OR IV REASON: low abd pain ORDER NUMBER(s): [id number], ACCESSION NUMBER(s): [id number] CLINICAL HISTORY: low abd pain TECHNIQUE: CT of the abdomen and pelvis was performed without intravenous contrast. This exam was performed according to our departmental dose optimization program. Up-to-date CT equipment and radiation dose reduction techniques are utilized as appropriate. CTDI: 21.17 DLP: 1200.05 WID: COMPARISON: CT ABD PELVIS WO CONTRAST on DOS: 05/27/21 FINDINGS: Lower Thorax: Cardiomegaly. Hypodensity of the blood pool relative to the myocardium indicative of anemia. Linear bibasilar scarring or atelectasis. Liver and Biliary system: Hepatomegaly measuring 22 cm craniocaudal. No definite hepatic lesion. Cholelithiasis. No biliary ductal dilatation. Spleen: Mild splenomegaly. Adrenal Glands and Kidneys: Normal adrenal glands. Tiny nonobstructing bilateral renal calculi. There are bilateral low-density renal lesions which are not optimally evaluated without contrast though may reflect cysts. No hydronephrosis Pancreas and Retroperitoneum: Unremarkable. Aorta and Major Vessels: Aortoiliac vessels are normal in caliber. Bowel, Mesentery and Peritoneal space: Normal caliber small and large bowel. Normal appendix. No free air or fluid collection. Pelvis: Urinary bladder is unremarkable. There is no pelvic lymphadenopathy. There is a cystic lesion in the right uterine fundus unchanged on series 2, image 75. The ovaries are grossly unremarkable. Abdominal wall and Osseous Structures: Multilevel lower thoracic and lumbar spondylosis. Grade 1 anterolisthesis at L5-S1. No destructive osseous lesion. IMPRESSION: No bowel obstruction, fluid collection, or free air. Normal appendix. Mild hepatosplenomegaly. Mild Cardiomegaly. Hypodensity of the blood pole relative to the myocardium indicative of anemia. Correlate with CBC. Cholelithiasis. Tiny nonobstructing bilateral renal calculi. EDURE(s): LS2CT - LS SPINE WO CONTRAST REASON: low back pain, urinary incont ORDER NUMBER(s): [id number], ACCESSION NUMBER(s): [id number] CLINICAL HISTORY: low back pain, urinary incont TECHNIQUE: CT of the lumbar spine was performed without intravenous contrast. This exam was performed according to our departmental dose optimization program. Up-to-date CT equipment and radiation dose reduction techniques are utilized as appropriate. COMPARISON: None FINDINGS: There are 5 [id number] lumbar type vertebral bodies. Grade 1 anterolisthesis L5-S1 otherwise normal alignment. Vertebral body heights are maintained. No acute fracture. There is moderate degenerative disc space narrowing at L5-S1. There is no high-grade neural foraminal or spinal stenosis. There is a diffuse disc bulge, facet hypertrophy, and ligamentum flavum thickening resulting in mild spinal stenosis and mild bilateral neural foraminal stenosis at L4-L5. There is grade 1 anterolisthesis and diffuse disc osteophyte complex at L5-S1 resulting in moderate left and mild right neural foraminal stenosis. The posterior paraspinal soft tissues are intact. IMPRESSION: No acute fracture or traumatic malalignment. Moderate degenerative disc space narrowing at L5-S1. Multilevel lumbar spondylosis. At L4-L5 there is mild spinal stenosis and mild bilateral neural foraminal stenosis and at L5-S1 there is moderate left and mild right neural foraminal stenosis. X-Ray, Labs, Meds, VS Comment 54 year old female with a history of gallstones, COPD and CHF brought in by EMS complaining of back pain Vitals remarkable for heart rate 113, BP 141/94 Exam remarkable for midline and paraspinal lumbar tenderness to palpation, bilateral lower quadrant tenderness to palpation Rhythm strip independently interpreted by me: Sinus tach, rate one hundred ten, no ectopy. CT abdomen and pelvis without contrast IMPRESSION: No bowel obstruction, fluid collection, or free air. Normal appendix. Mild hepatosplenomegaly. Mild Cardiomegaly. Hypodensity of the blood pole relative to the myocardium indicative of anemia. Correlate with CBC. Cholelithiasis. Tiny nonobstructing bilateral renal calculi. CT lumbar spine without contrast IMPRESSION: No acute fracture or traumatic malalignment. Moderate degenerative disc space narrowing at L5-S1. Multilevel lumbar spondylosis. At L4-L5 there is mild spinal stenosis and mild bilateral neural foraminal stenosis and at L5-S1 there is moderate left and mild right neural foraminal stenosis. CBC and CMP unremarkable. UA pending. Patient treated with the following in the ED: Morphine 4 mg IV x2, Zofran 4 mg IV, Robaxin 1 g p.o., Rocephin 1 g IV On re-evaluation, patient states pain has slightly improved, but she is still in moderate discomfort and is unable to stand or ambulate. Plan is to admit the patient for pain control, spine MRI and ortho/spine evaluation if necessary. Time of 1ST Reevaluation: 21:51 Reevaluation 1ST: Unchanged Patient Education/Counseling: Diagnosis, Treatment Family Education/Counseling: No Family Present SEPSIS Sepsis Screen Physician Orders Urinalysis (12/29/24 21:52) Ct Ab Pel Wo Con-No Oral Or Iv (12/29/24 21:52) Ls Spine Wo Contrast (12/29/24 21:52) Insert/Manage Urinary Catheter QSHIFT (12/29/24 21:52) Drug Screen (12/29/24 21:52) Vital Signs Date Time Temp Pulse Resp B/P (MAP) Pulse Ox O2 Delivery O2 Flow Rate FiO2 12/30/24 00:42 97.7 104 16 106/67 (80) 93 97.7 12/29/24 22:43 105 12/29/24 22:43 98.0 105 18 124/71 (88) 93 98.0 12/29/24 22:42 105 20 124/71 12/29/24 21:52 110 12/29/24 21:40 98.9 113 15 141/94 (110) 99 98.9 Laboratory Tests Test 12/29/24 22:41 White Blood Count 6.7 10^3/uL (4.4-10.8) Medications Medications Dose Ordered Sig/Nam Route Start Time Stop Time Status Last Admin Dose Admin Methocarbamol 1,000 mg ONCE ONCE PO 12/29/24 22:00 12/29/24 22:01 DC 12/29/24 22:41 Morphine Sulfate 4 mg ONCE ONCE IV 12/29/24 22:00 12/29/24 22:01 DC 12/29/24 22:42 Ondansetron HCl 4 mg ONCE ONCE IV 12/29/24 22:00 12/29/24 22:01 DC 12/29/24 22:43 Departure 1 Departure Time of Disposition: 02:30 Impression: Primary Impression: Intractable low back pain Additional Impression: UTI (urinary tract infection) Qualified Codes: N39.0 - Urinary tract infection, site not specified; R31.9 - Hematuria, unspecified Disposition: ADMITTED INPATIENT Admit to: Med Surg Condition: Fair Critical Care Note Critical Care Time?: No Stability Stability form required: No Heart Score Heart Score: Heart Score Response (Comments) Value History N/A 0 EKG N/A 0 Age N/A 0 Risk Factors N/A 0 Troponin N/A 0 Total 0 I personally scribed for BARBER MEADOWS MD ([facility]) on 12/29/24 at 21:58. Electronically submitted by Joel Singh ([facility] I personally scribed for BARBER MEADOWS MD ([email or web address]) on 12/30/24 at 01:50. Electronically submitted by Joel Singh ([facility] BARBER MEADOWS MD Dec 29, 2024 21:58
[2024-12-29] MEDS: METHOCARBAMOL 500 MG TAB PO ONE (22:41)
[2024-12-29] MEDS: MORPHINE SULFATE 4 MG/ML SYR/VIAL IV ONE (22:42)
[2024-12-29] MEDS: ONDANSETRON HCL 4 MG/2 ML VIAL IV ONE (22:43)
[2024-12-29 22:52] LABS: Hematocrit 31.6 % (36.0-46.0); Hemoglobin 9.3 g/dL (12.2-16.2); Mean Corpuscular Hemoglobin 18.8 pg (28.0-32.0); Mean Corpuscular Volume 64.0 fL (80.0-100.0); Nucleated Red Blood Cells % 0.0 %
[2024-12-29 23:09] LABS: Alanine Aminotransferase 28 U/L (7-40); Albumin 4.3 g/dL (3.2-4.8); Alkaline Phosphatase 65 U/L (46-116); Anion Gap 8 (5-15); BUN/Creatinine Ratio 16.0 (10.0-20.0); Bilirubin, Total 0.3 mg/dL (0.2-1.0); Blood Urea Nitrogen 13 mg/dL (9-23); Calcium 9.6 mg/dL (8.7-10.4); Carbon Dioxide 28 mmol/L (20-31); Chloride 107 mmol/L (98-107); Glucose 105 mg/dL (74-106); Potassium 4.0 mmol/L (3.5-5.1); Sodium 143 mmol/L (136-145); Total Protein 7.2 g/dL (5.7-8.2)
[2024-12-29 23:26] LABS: Anisocytosis Moderate
--- NOTE | 2024-12-30 00:51 | DVH ---
CLINICAL HISTORY: low abd pain TECHNIQUE: CT of the abdomen and pelvis was performed without intravenous contrast. This exam was per formed according to our departmental dose optimization program. Up-to-date CT equipment and radiation dose reduction techniques are utilized as appropriate. CTDI: 21.17 DLP: 1200.05 WID: COMPARISON: CT ABD PELVIS WO CONTRAST on DOS: 05/27/21 FINDINGS: Lower Thorax: Cardiomegaly. Hypodensity of the blood pool relative to the myocardium indicative of a nemia. Linear bibasilar scarring or atelectasis. Liver and Biliary system: Hepatomegaly measuring 22 cm craniocaudal. No definite hepatic lesion. Chol elithiasis. No biliary ductal dilatation. Spleen: Mild splenomegaly. Adrenal Glands and Kidneys: Normal adrenal glands. Tiny nonobstructing bilateral renal calculi. There are bilateral low-density renal lesions which are not optimally evaluated without contrast though ma y reflect cysts. No hydronephrosis Pancreas and Retroperitoneum: Unremarkable. Aorta and Major Vessels: Aortoiliac vessels are normal in caliber. Bowel, Mesentery and Peritoneal space: Normal caliber small and large bowel. Normal appendix. No free air or fluid collection. Pelvis: Urinary bladder is unremarkable. There is no pelvic lymphadenopathy. There is a cystic lesion in the right uterine fundus unchanged on series 2, image 75. The ovaries are grossly unremarkable. Abdominal wall and Osseous Structures: Multilevel lower thoracic and lumbar spondylosis. Grade 1 ante rolisthesis at L5-S1. No destructive osseous lesion. IMPRESSION: No bowel obstruction, fluid collection, or free air. Normal appendix. Mild hepatosplenomegaly. Mild Cardiomegaly. Hypodensity of the blood pole relative to the myocardium indicative of anemia. Correlate with CBC. Cholelithiasis. Tiny nonobstructing bilateral renal calculi.
--- NOTE | 2024-12-30 00:55 | DVH ---
CLINICAL HISTORY: low back pain, urinary incont TECHNIQUE: CT of the lumbar spine was performed without intravenous contrast. This exam was performed according to our departmental dose optimization program. Up-to-date CT equipment and radiation dose reduction techniques are utilized as appropriate. COMPARISON: None FINDINGS: There are 5 [id number] lumbar type vertebral bodies. Grade 1 anterolisthesis L5-S1 otherwise nor mal alignment. Vertebral body heights are maintained. No acute fracture. There is moderate degenerat elbert disc space narrowing at L5-S1. There is no high-grade neural foraminal or spinal stenosis. There is a diffuse disc bulge, facet hypertrophy, and ligamentum flavum thickening resulting in mild spinal stenosis and mild bilateral neural foraminal stenosis at L4-L5. There is grade 1 anterolisthesis and diffuse disc osteophyte complex at L5-S1 resulting in moderate left and mild right neural foraminal stenosis. The posterior paraspinal soft tissues are intact. IMPRESSION: No acute fracture or traumatic malalignment. Moderate degenerative disc space narrowing at L5-S1. Multilevel lumbar spondylosis. At L4-L5 there is mild spinal stenosis and mild bilateral neural ana luisa inal stenosis and at L5-S1 there is moderate left and mild right neural foraminal stenosis.
[2024-12-30] MEDS: cefTRIAXone 1GM/50ML D5W 50 ML IV ONE (03:30)
[2024-12-30 04:17] LABS: Urine Protein, UAD 1+ (Negative)
[2024-12-30 04:22] LABS: Opiate Scree,Urine Pos (NEGATIVE)
[2024-12-30 04:27] LABS: Amphetamine Screen, Urine Pos (NEGATIVE); Barbiturate Scree,Urine Neg (NEGATIVE); Benzodiazephine Screen, Urine Neg (NEGATIVE); Cannabinoid Screen, Urine Neg (NEGATIVE); Cocaine Screen, Urine Neg (NEGATIVE); Phencyclidine Screen, Urine Neg (NEGATIVE)
[2024-12-30] MEDS ORDERED: MORPHINE SULFATE INJ 2 MG/ml SYRG IV PRN (05:30)
[2024-12-30] MEDS ORDERED: DOCUSATE SOD 100 MG CAP PO PRN (05:30)
[2024-12-30] MEDS ORDERED: ACETAMINOPHEN 325 MG TAB PO PRN (05:30)
[2024-12-30] MEDS ORDERED: NITROGLYCERIN 0.4 MG SL TAB SL PRN (05:30)
--- NOTE | 2024-12-30 05:50 | DVHHP2 ---
History of Present Illness Reason for Visit: Intractable low back pain History of Present Illness The patient is a 54-year-old female with past medical history of asthma, CHF, COPD, gallstones, and liver disease who presented to [facility] ED with complaint of back pain. Patient reports she has been experiencing constant lower back pain, described as stabbing sensation, radiating to her left and right lower abdomen, rating pain 8/10 numeric scale, associated dysuria, urinary incontinence, frequency, urgency, hematuria, getting worse that prompted this visit. Patient was seen and evaluated in the ED, laboratory data shows WBC 6.7, hemoglobin 9.3, hematocrit 28.9, platelets 195, sodium 143, potassium 4.0, BUN 13, creatinine 0.81, glucose 105, blood pressure 134/84, heart rate 104, temperature 97.6 F, O2 saturation 98% on room air. Abdomen/pelvis CT showed no bowel obstruction, fluid collection free, normal appendix. Lumbar spine CT showed no acute fracture traumatic malalignment; noted moderate degenerative disc space narrowing at L5-S1. Please see medication orders section in the computer. On my assessment, patient denied chest pain, no headache, no dizziness, no shortness a breath, no diarrhea, no nausea, no vomiting, no fever, no chills. Patient was admitted for further evaluation and medical management. Past Medical History Asthma, CHF, COPD, Gallstones, Liver Past Surgical History Tubal Ligation Family History Reviewed, noncontributory to the management of this case. Past Social History Patient lives at home, smokes cigarettes, drinks alcohol occasionally, uses methamphetamine. Review of Systems Constitutional: No: Fever, Chills, Sweats, Weakness, Malaise, Other Eyes: No: Pain, Vision change, Conjunctivae inflammation, Eyelid inflammation, Other, Redness ENT: No: Ear pain, Ear discharge, Nose pain, Nose discharge, Nose congestion, Mouth pain, Mouth swelling, Throat pain, Throat swelling, Other Respiratory: No: Cough, Dry, Shortness of breath, SOB with excertion, Wheezing, Hemoptysis, Pleuritic Pain, Sputum, Wheezing, Other Cardiovascular: No: Chest Pain, Palpitations, Orthopnea, Paroxysmal Noc. Dyspnea, Edema, Lt Headedness, Other Gastrointestinal: Abdominal Pain (LLQ); No: Nausea, Vomiting, Diarrhea, Constipation, Melena, Hematochezia, Other Genitourinary: Dysuria, Frequency, Incontinence; No Hematuria, No Retention; Other (Burning) Musculoskeletal: back pain; No: other, neck pain, shoulder pain, arm pain, hand pain, leg pain, foot pain Skin: No: Rash, Lesions, Jaundice, Bruising, Other Neurological: No: Weakness, Numbness, Incoordination, Change in speech, Confusion, Seizures, Other Allergies: Coded Allergies: NO KNOWN ALLERGIES (Unverified , 10/18/19) Exam Vital Signs Vital Signs Date Time Temp Pulse Resp B/P (MAP) Pulse Ox O2 Delivery O2 Flow Rate FiO2 12/30/24 04:00 97.0 112 12 134/84 (101) 98 97.0 12/30/24 03:20 Room Air* 0 21 General Appearance: Alert, Oriented X3, Cooperative, No acute distress HEENT: Atraumatic, PERRLA, EOMI, Mucous membr. moist/pink Respiratory: Normal air movement Cardiovascular: Regular rate, Normal S1, Normal S2, No murmurs Abdominal: Normal bowel sounds, Soft, No hepatospenomegaly, No masses, Other (Reports tenderness) Extremities: No clubbing, No cyanosis, No edema, Normal pulses, Other (Back pain) Skin: No rashes, No breakdown, No significant lesion Neuro: Normal gait, Normal speech, Strength at 5/5 X4 ext, Normal tone, Sensation intact, Cranial nerves 3-12 NL, Reflexes 2+ Psych/Mental Status: Mental status NL, Mood NL Labs/Xrays Labs Test 12/29/24 22:41 12/29/24 21:45 Range/Units White Blood Count 6.7 4.4-10.8 10^3/uL Red Blood Count 4.93 4.0-5.20 10^6/uL Hemoglobin 9.3 L 12.2-16.2 g/dL Hematocrit 31.6 L 36.0-46.0 % Mean Corpuscular Volume 64.0 L 80.0-100.0 fL Mean Corpuscular Hemoglobin 18.8 L 28.0-32.0 pg Mean Corpuscular Hemoglobin Concent 29.4 L 32.0-36.0 g/dL Red Cell Distribution Width 21.4 H 11.8-14.3 % Platelet Count 195 140-450 10^3/uL Mean Platelet Volume 8.7 6.9-10.8 fL Neutrophils (%) (Auto) 68.1 37.0-80.0 % Lymphocytes (%) (Auto) 20.2 10.0-50.0 % Monocytes (%) (Auto) 7.5 0.0-12.0 % Eosinophils (%) (Auto) 2.8 0.0-7.0 % Basophils (%) (Auto) 1.4 0.0-2.0 % Neutrophils # (Auto) 4.6 1.6-8.6 10 ^3/uL Lymphocytes # (Auto) 1.4 0.4-5.4 10 ^3/uL Monocytes # (Auto) 0.5 0-1.3 10 ^3/uL Eosinophils # (Auto) 0.2 0-0.8 10 ^3/uL Basophils # (Auto) 0.1 0-0.2 10 ^3/uL Nucleated Red Blood Cells 0.0 % Platelet Estimate Adequate Hypochromasia (manual) Marked Anisocytosis (manual) Moderate Microcytosis Marked Sodium Level 143 136-145 mmol/L Potassium Level 4.0 3.5-5.1 mmol/L Chloride Level 107 98-107 mmol/L Carbon Dioxide Level 28 20-31 mmol/L Anion Gap 8 5-15 Blood Urea Nitrogen 13 9-23 mg/dL Creatinine 0.81 0.550-1.02 mg/dL Glomerular Filtration Rate Calc 87 >90 mL/min BUN/Creatinine Ratio 16.0 10.0-20.0 Serum Glucose 105 74-106 mg/dL Calcium Level 9.6 8.7-10.4 mg/dL Total Bilirubin 0.3 0.2-1.0 mg/dL Aspartate Amino Transferase (AST) 27 13-40 U/L Alanine Aminotransferase (ALT) 28 7-40 U/L Alkaline Phosphatase 65 46-116 U/L Total Protein 7.2 5.7-8.2 g/dL Albumin 4.3 3.2-4.8 g/dL Urine Color Light-orange Yellow Urine Clarity Turbid H Clear Urine pH 5.5 5.0-9.0 Urine Specific [place] 1.026 1.001-1.035 Urine Protein 1+ H Negative Urine Ketones Negative Negative Urine Blood 3+ H Negative /uL Urine Nitrite Negative Negative Urine Bilirubin Negative Negative Urine Urobilinogen Normal Negative mg/dL Urine Leukocyte Esterase Negative Negative /uL Urine RBC 885 0 - 4 /hpf Urine Microscopic WBC 67 H 0-5 /HPF Urine Squamous Epithelial Cells Few <5 /hpf Urine Bacteria None seen None Seen /hpf Urine Mucus Few None Seen Urine Glucose Normal Normal mg/dL Urine Opiates Screen Pos NEGATIVE Urine Fentanyl Screen Neg NEGATIVE Urine Barbiturates Screen Neg NEGATIVE Urine Phencyclidine Screen Neg NEGATIVE Urine Amphetamines Screen Pos NEGATIVE Urine Benzodiazepines Screen Neg NEGATIVE Urine Cocaine Screen Neg NEGATIVE Urine Cannabinoids Screen Neg NEGATIVE PATIENT: YASMIN MENA ACCT: [id number] UNIT: [id number] : 1970 LOC: ER ROOM / BED: / AGE / SEX: 54 / F ADM STATUS: REG ER SERVICE 51 ORDERING PHYSICIAN: BARBER MEADOWS MD PROCEDURE(s): ABPL - CT AB PEL WO CON-NO ORAL OR IV REASON: low abd pain ORDER NUMBER(s): [id number], ACCESSION NUMBER(s): [id number] CLINICAL HISTORY: low abd pain TECHNIQUE: CT of the abdomen and pelvis was performed without intravenous contrast. This exam was performed according to our departmental dose optimization program. Up-to-date CT equipment and radiation dose reduction techniques are utilized as appropriate. CTDI: 21.17 DLP: 1200.05 WID: COMPARISON: CT ABD PELVIS WO CONTRAST on DOS: 05/27/21 FINDINGS: Lower Thorax: Cardiomegaly. Hypodensity of the blood pool relative to the myocardium indicative of anemia. Linear bibasilar scarring or atelectasis. Liver and Biliary system: Hepatomegaly measuring 22 cm craniocaudal. No definite hepatic lesion. Cholelithiasis. No biliary ductal dilatation. Spleen: Mild splenomegaly. Adrenal Glands and Kidneys: Normal adrenal glands. Tiny nonobstructing bilateral renal calculi. There are bilateral low-density renal lesions which are not optimally evaluated without contrast though may reflect cysts. No hydronephrosis Pancreas and Retroperitoneum: Unremarkable. Aorta and Major Vessels: Aortoiliac vessels are normal in caliber. Bowel, Mesentery and Peritoneal space: Normal caliber small and large bowel. Normal appendix. No free air or fluid collection. Pelvis: Urinary bladder is unremarkable. There is no pelvic lymphadenopathy. There is a cystic lesion in the right uterine fundus unchanged on series 2, image 75. The ovaries are grossly unremarkable. Abdominal wall and Osseous Structures: Multilevel lower thoracic and lumbar spondylosis. Grade 1 anterolisthesis at L5-S1. No destructive osseous lesion. IMPRESSION: No bowel obstruction, fluid collection, or free air. Normal appendix. Mild hepatosplenomegaly. Mild Cardiomegaly. Hypodensity of the blood pole relative to the myocardium indicative of anemia. Correlate with CBC. Cholelithiasis. Tiny nonobstructing bilateral renal calculi. ORDERING PHYSICIAN: BARBER MEADOWS MD PROCEDURE(s): LS2CT - LS SPINE WO CONTRAST REASON: low back pain, urinary incont ORDER NUMBER(s): [id number], ACCESSION NUMBER(s): [id number] CLINICAL HISTORY: low back pain, urinary incont TECHNIQUE: CT of the lumbar spine was performed without intravenous contrast. This exam was performed according to our departmental dose optimization program. Up-to-date CT equipment and radiation dose reduction techniques are utilized as appropriate. COMPARISON: None FINDINGS: There are 5 [id number] lumbar type vertebral bodies. Grade 1 anterolisthesis L5-S1 otherwise normal alignment. Vertebral body heights are maintained. No acute fracture. There is moderate degenerative disc space narrowing at L5-S1. There is no high-grade neural foraminal or spinal stenosis. There is a diffuse disc bulge, facet hypertrophy, and ligamentum flavum thickening resulting in mild spinal stenosis and mild bilateral neural foraminal stenosis at L4-L5. There is grade 1 anterolisthesis and diffuse disc osteophyte complex at L5-S1 resulting in moderate left and mild right neural foraminal stenosis. The posterior paraspinal soft tissues are intact. IMPRESSION: No acute fracture or traumatic malalignment. Moderate degenerative disc space narrowing at L5-S1. Multilevel lumbar spondylosis. At L4-L5 there is mild spinal stenosis and mild bilateral neural foraminal stenosis and at L5-S1 there is moderate left and mild right neural foraminal stenosis. Assessment/Plan Assessment/Plan Intractable low back pain UTI (urinary tract infection) Urinary tract infection, site not specified Hematuria, unspecified Plan 1. Admit to med surge unit 2. Breathing treatment 3. Pain control management 4. IV antibiotic management 5. Management of fluids and electrolytes 6. Consultation for hospitalist 7. Diagnostic test abdomen/pelvis CT 8. DVT prophylaxis on SCDs 9. Repeat labs CBC, CMP in a.m. 10. Home medication reviewed and reconciled 11. Continue with current medical management 12. Treatment plan discussed with patient and RN. Patient verbalized understanding. Plan discussed with: Patient, Other (RN) My Orders Orders - HARDIK JULIAN DNP Procedure Category Date Status Time Complete Blood Count LAB 12/30/24 Transmitted 05:29 Comprehensive LAB 12/30/24 Transmitted Metabolic Panel 05:29 Ceftriaxone Ivpb PHA 12/30/24 Transmitted Rocephin 09:00 Metoprolol Tartrate PHA 12/30/24 Transmitted Tablet (Lopressor Ta 10:00 Admit ADMIT 12/30/24 Transmitted 05:29 Allergies MARTA 12/30/24 Transmitted 05:29 Code Status CODE 12/30/24 Transmitted 05:29 Sodium Chloride Lock PHA 12/30/24 Transmitted (Saline Lock Ns) 06:00 Oxygen Per Hour RT 12/30/24 Transmitted 05:29 Hydrocodone-Acet PHA 12/30/24 Transmitted 5/325mg Tab (Lutz 05:30 Ondansetron Hcl PHA 12/30/24 Verified (Zofran) 05:30 Docusate Sodium PHA 12/30/24 Verified Capsule (Colace 05:30 Complete Blood Count LAB 12/31/24 Verified 04:00 Comprehensive LAB 12/31/24 Verified Metabolic Panel 04:00 Cardiac DIET 12/30/24 Verified Diet-2gna,Lofat,Lochol Breakfast Condition: Serious MARTA 12/30/24 Verified 05:29 Acetaminophen Tablet PHA 12/30/24 Verified (Tylenol Tablet) 05:30 Bedrest With Bathroom MARTA 12/30/24 Verified Privileg 05:29 Morphine Sulfate PHA 12/30/24 Verified Injection 05:30 Sequential MARTA 12/30/24 Verified Compression Device Nitroglycerin PHA 12/30/24 Verified Sublingual (Ntrostat 05:30 Morphine Sulfate PHA 12/30/24 Verified Injection 05:30 Notify Md Of Changes [facility] 12/30/24 Verified From Base 05:29 Emergency Dysrhythmia [facility] 12/30/24 Verified Protocol 05:29 Oxygen By Nasal RT 12/30/24 Verified Cannula 05:29 Problem List: (1) Intractable low back pain (2) UTI (urinary tract infection) (3) Urinary tract infection, site not specified (4) Hematuria, unspecified Date of Service: Dec 30, 2024 Billing Provider: OKPAN,HARDIK O DNP Common Visit Codes: [id number] INP/OBS CARE (HIGH) HARDIK JULIAN DNP Dec 30, 2024 05:50
[2024-12-30] MEDS: SODIUM CHLOR 0.9% PF (SALINE LOCK) 10ML VIAL/SYR IV SCH (06:02)
[2024-12-30] MEDS: MORPHINE SULFATE INJ 2 MG/ml SYRG IV PRN (06:49)
[2024-12-30 06:59] LABS: Alanine Aminotransferase 27 U/L (7-40); Albumin 4.0 g/dL (3.2-4.8); Alkaline Phosphatase 58 U/L (46-116); Anion Gap 7 (5-15); BUN/Creatinine Ratio 13.9 (10.0-20.0); Blood Urea Nitrogen 11 mg/dL (9-23); Calcium 9.1 mg/dL (8.7-10.4); Carbon Dioxide 24 mmol/L (20-31); Glucose 101 mg/dL (74-106); Potassium 4.8 mmol/L (3.5-5.1); Sodium 140 mmol/L (136-145); Total Protein 6.9 g/dL (5.7-8.2)
[2024-12-30 07:00] LABS: Bilirubin, Total 0.2 mg/dL (0.2-1.0); Chloride 109 mmol/L (98-107)
[2024-12-30 07:32] LABS: Hematocrit 30.2 % (36.0-46.0); Hemoglobin 8.8 g/dL (12.2-16.2); Mean Corpuscular Hemoglobin 19.0 pg (28.0-32.0); Mean Corpuscular Volume 65.3 fL (80.0-100.0); Nucleated Red Blood Cells % 0.0 %
[2024-12-30 09:17] VITALS: BP 97/74; PULSE 91; RESP 20; TEMP 97.9; O2SAT 98
[2024-12-30] MEDS: METOPROLOL TARTRATE 25 MG TAB PO SCH (10:00)
[2024-12-30 12:57] VITALS: BP 102/73; PULSE 107; RESP 20; TEMP 96.5; O2SAT 100
--- NOTE | 2024-12-30 15:28 | DVH ---
CLINICAL INFORMATION: 54 years old, Female; Abdominal pain. TECHNIQUE: Axial CT images of the abdomen and pelvis were obtained without IV contrast. Coronal and s agittal reformatted images were obtained, reviewed, and stored. Evaluation of the parenchymal organs is limited without IV contrast. Evaluation of the bowel and mesentery is limited without oral contras t. All CT scans at this medical facility are performed using dose modulation techniques as appropriat e to a performed exam including the following: Automated exposure control was utilized; adjustment of the MA and/or KV according to patient size; and use of iterative reconstruction technique. CTDIvol = 21.99 mGy DLP = 1067.99 mGy-cm COMPARISON: CT CT AB PEL WO CON-NO ORAL OR IV on DOS: 12/29/24, CT ABD PELVIS WO CONTRAST on DOS: FINDINGS: Lung bases: Dependent atelectasis in the lower lobes bilaterally. Respiratory motion artifact limits evaluation. Moderate cardiomegaly. Liver: Grossly unremarkable given the limitations of motion artifact. Biliary: Calcified gallstones in the gallbladder. No biliary ductal dilatation. Spleen: Unremarkable. Pancreas: Moderate atrophy. Adrenal glands: Unremarkable. No mass. Kidneys: No hydronephrosis. Punctate nonobstructing renal calculi. Low-attenuation lesion of the midp ole of the right kidney measures up to 1.3 cm, likely a cyst. Aorta/Vascular: No aneurysm or significant calcification. Retroperitoneum: Small subcentimeter retroperitoneal lymph nodes, likely reactive. Bowel/mesentery: The stomach is markedly distended with ingested material. Nonspecific nondilated flu id-filled small bowel loops. No small bowel obstruction. Appendix is not visualized. Moderate stool i n the colon. Pelvic organs: Uterus is anteverted. Low-density mass at the right anterior aspect of the uterine fun dus measures up to 1.7 cm, likely fibroid. Bladder: Unremarkable. No mass. Abdominal wall: No mass or hernia. Bones: No acute fracture or suspicious intraosseous lesion. IMPRESSION: 1. Markedly distended stomach with ingested material. 2. Nonspecific nondilated fluid-filled small bowel loops. Findings may be seen with ileus or enteriti s in the appropriate clinical setting. No small bowel obstruction. 3. Moderate stool in the colon. 4. Suspected fibroid in the uterus. 5. Cholelithiasis. 6. Additional findings as described above.
[2024-12-30 17:00] VITALS: BP 100/70; PULSE 108; RESP 20; TEMP 97; O2SAT 96
[2024-12-30 20:00] VITALS: PULSE 86
[2024-12-30] MEDS: HYDROcodone-ACET 5/325MG TAB PO PRN (20:09)
[2024-12-30 21:00] VITALS: BP 98/72; PULSE 95; RESP 19; TEMP 96.5; O2SAT 100
[2024-12-31] MEDS: CYCLOBENZAPRINE HCL 10 MG TAB PO PRN (00:39)
[2024-12-31 01:00] VITALS: BP 102/64; PULSE 106; RESP 19; TEMP 98; O2SAT 98
[2024-12-31 05:00] VITALS: BP 95/66; PULSE 98; RESP 18; TEMP 96.8; O2SAT 99
[2024-12-31 06:49] LABS: Mean Corpuscular Hemoglobin 19.3 pg (28.0-32.0)
[2024-12-31 06:52] LABS: Hematocrit 29.6 % (36.0-46.0); Hemoglobin 8.6 g/dL (12.2-16.2); Mean Corpuscular Volume 66.4 fL (80.0-100.0); Nucleated Red Blood Cells % 0.1 %
[2024-12-31 07:22] LABS: Alanine Aminotransferase 23 U/L (7-40); Albumin 3.6 g/dL (3.2-4.8); Alkaline Phosphatase 54 U/L (46-116); Anion Gap 7 (5-15); BUN/Creatinine Ratio 15.7 (10.0-20.0); Blood Urea Nitrogen 13 mg/dL (9-23); Calcium 9.0 mg/dL (8.7-10.4); Carbon Dioxide 25 mmol/L (20-31); Glucose 102 mg/dL (74-106); Potassium 4.9 mmol/L (3.5-5.1); Sodium 140 mmol/L (136-145); Total Protein 6.2 g/dL (5.7-8.2)
[2024-12-31 07:23] LABS: Bilirubin, Total 0.3 mg/dL (0.2-1.0); Chloride 108 mmol/L (98-107)
[2024-12-31] MEDS: cefTRIAXone 1GM/50ML D5W 50 ML IV SCH (08:24)
[2024-12-31 08:30] VITALS: BP 113/83; PULSE 115; RESP 20; TEMP 97; O2SAT 98
--- NOTE | 2024-12-31 12:19 | DVHPN2 ---
Subjective The patient is seen and examined at bedside. Still complain of back pain. Reviewed: Care Plan, H&P, Labs, Medications, Previous Orders, Radiology Changes from previous H/P or p: No Changes Eyes: No Pain, No Vision change, No Conjunctivae inflammation, No Eyelid inflammation, No Other, No Redness ENT: No Ear pain, No Ear discharge, No Nose pain, No Nose discharge, No Nose congestion, No Mouth pain, No Mouth swelling, No Throat pain, No Throat swelling, No Other Cardiovascular: No Chest Pain, No Palpitations, No Orthopnea, No Paroxysmal Noc. Dyspnea, No Edema, No Lt Headedness, No Other Respiratory: No Cough, No Dry, No Shortness of breath, No SOB with excertion, No Wheezing, No Hemoptysis, No Pleuritic Pain, No Sputum, No Other Gastrointestinal: No Nausea, No Vomiting; Abdominal Pain (LLQ); No Diarrhea, No Constipation, No Melena, No Hematochezia, No Other Genitourinary: Dysuria, Frequency, Incontinence; No Hematuria, No Retention; O ther (Burning) Musculoskeletal: No other, No neck pain, No shoulder pain, No arm pain; back pain; No hand pain, No leg pain, No foot pain Skin: No Rash, No Lesions, No Jaundice, No Bruising, No Other Objective Vitals Vital Signs Date Time Temp Pulse Resp B/P (MAP) Pulse Ox O2 Delivery O2 Flow Rate FiO2 12/31/24 08:30 97.0 115 20 113/83 (93) 98 97.0 12/31/24 07:38 Nasal Cannula* 2 28 Intake/Output Intake and Output 12/31/24 07:00 Intake Total 1713 ml Output Total 300 ml Balance 1413 ml Intake Oral 1713 ml Output Urine Total 300 ml # Voids 3 General Appearance: Alert, Oriented X3, Cooperative, No acute distress HEENT: Atraumatic, PERRLA, EOMI, Mucous membr. moist/pink Neck: Supple Lungs: Clear to auscultation, Normal air movement Cardiovascular: Regular rate, Normal S1, Normal S2, No murmurs, Gallops, Rubs Abdomen: Normal bowel sounds, Soft, No tenderness Neuro: Cranial nerves 3-12 NL Psych/Mental Status: Mental status NL Medications Current Medications Medications Dose Ordered Sig/Nam Route Start Time Stop Time Status Last Admin Dose Admin Ceftriaxone Sodium 50 ml @ 100 mls/hr DAILY@09 IV 12/31/24 09:00 12/31/24 08:24 100 MLS/HR Metoprolol Tartrate 25 mg BID PO 12/30/24 10:00 12/30/24 10:00 25 MG Sodium Chloride 10 ml Q8HR IV 12/30/24 06:00 12/31/24 06:00 10 ML Acetaminophen/ Hydrocodone Bitart 1 tab Q4HP PRN PO 12/30/24 05:30 12/31/24 06:48 1 TAB Ondansetron HCl 4 mg Q4HP PRN IV 12/30/24 05:30 Docusate Sodium 100 mg BIDPRN PRN PO 12/30/24 05:30 Acetaminophen 650 mg Q6HP PRN PO 12/30/24 05:30 Morphine Sulfate 2 mg Q4HPRN PRN IV 12/30/24 05:30 12/30/24 06:49 2 MG Nitroglycerin 0.4 mg Q5MINP PRN SL 12/30/24 05:30 Morphine Sulfate 2 mg Q30M PRN IV 12/30/24 05:30 Clonidine HCl 0.1 mg Q4HP PRN PO 12/30/24 05:45 Cyclobenzaprine HCl 10 mg Q8HPRN PRN PO 12/30/24 14:00 12/31/24 00:39 10 MG Laboratory Results Laboratory Tests 12/31/24 05:56 Chemistry Test 12/31/24 05:56 Albumin 3.6 g/dL (3.2-4.8) Calcium Level 9.0 mg/dL (8.7-10.4) Total Protein 6.2 g/dL (5.7-8.2) LFT Test 12/31/24 05:56 Alanine Aminotransferase (ALT) 23 U/L (7-40) Alkaline Phosphatase 54 U/L (46-116) Aspartate Amino Transferase (AST) 24 U/L (13-40) Total Bilirubin 0.3 mg/dL (0.2-1.0) Urinalysis Test 12/29/24 21:45 Urine Color Light-orange (Yellow) Urine Clarity Turbid (Clear) H Urine pH 5.5 (5.0-9.0) Urine Specific [place] 1.026 (1.001-1.035) Urine Protein 1+ (Negative) H Urine Ketones Negative (Negative) Urine Blood 3+ /uL (Negative) H Urine Nitrite Negative (Negative) Urine Bilirubin Negative (Negative) Urine Urobilinogen Normal mg/dL (Negative) Urine Leukocyte Esterase Negative /uL (Negative) Urine RBC 885 /hpf (0 - 4) Urine Microscopic WBC 67 /HPF (0-5) H Urine Squamous Epithelial Cells Few /hpf (<5) Urine Bacteria None seen /hpf (None Seen) Urine Mucus Few (None Seen) Urine Glucose Normal mg/dL (Normal) Labs and/or images reviewed: Labs reviewed by me Assessment/Plan Assessment/Plan Intractable low back pain UTI (urinary tract infection) Hematuria, unspecified Continuing current management. Continuing with IV antibiotic. We will follow up with culture. I will review CT scan of lumbar spine showed mild stenosis. Continuing pain medication We will add Flexeril, muscle relaxant 10 mg every 8 hours as needed This medical document was created using an electronic medical record system with [employer] computerized dictation system. Although this document has been carefully reviewed, there may still be some phonetic and typographical errors. These areas are purely typographical due to imperfections of the software programs, and do not reflect any compromise in the patient's medical care. Plan discussed with: Patient My Orders Orders - SONIDO MATAMOROS MD Procedure Category Date Status Time Cyclobenzaprine PHA 12/30/24 In Process Tablet (Flexeril 14:00 Ct Ab Pel Wo Con-No CT 12/30/24 Resulted Oral Or Iv 13:54 Date of Service: Dec 31, 2024 Billing Provider: SONIDO MATAMOROS MD Common Visit Codes: [id number] INP/OBS CARE(HIGH) SONIDO MATAMOROS MD Dec 31, 2024 12:19
[2024-12-31 12:37] VITALS: BP 98/66; PULSE 92; RESP 14; TEMP 97.1; O2SAT 97
[2024-12-31 16:30] VITALS: BP 129/91; PULSE 107; RESP 20; TEMP 97.8; O2SAT 95
[2024-12-31 21:00] VITALS: BP 111/67; PULSE 115; RESP 20; TEMP 98; O2SAT 95
[2025-01-01 01:00] VITALS: BP 98/70; PULSE 100; RESP 18; TEMP 97.2; O2SAT 97
[2025-01-01 05:00] VITALS: BP 99/61; PULSE 100; RESP 18; TEMP 97.2; O2SAT 93
[2025-01-01 08:30] VITALS: BP 98/66; PULSE 92; RESP 12; TEMP 96.3; O2SAT 95
[2025-01-01 08:53] LABS: Urine Protein, UAD Negative (Negative)
--- NOTE | 2025-01-01 12:15 | DVHPN2 ---
Subjective The patient is seen and examined at bedside. Still complain of back pain. Reviewed: Care Plan, H&P, Labs, Medications, Previous Orders, Radiology Changes from previous H/P or p: No Changes Eyes: No Pain, No Vision change, No Conjunctivae inflammation, No Eyelid inflammation, No Other, No Redness ENT: No Ear pain, No Ear discharge, No Nose pain, No Nose discharge, No Nose congestion, No Mouth pain, No Mouth swelling, No Throat pain, No Throat swelling, No Other Cardiovascular: No Chest Pain, No Palpitations, No Orthopnea, No Paroxysmal Noc. Dyspnea, No Edema, No Lt Headedness, No Other Respiratory: No Cough, No Dry, No Shortness of breath, No SOB with excertion, No Wheezing, No Hemoptysis, No Pleuritic Pain, No Sputum, No Other Gastrointestinal: No Nausea, No Vomiting; Abdominal Pain (LLQ); No Diarrhea, No Constipation, No Melena, No Hematochezia, No Other Genitourinary: Dysuria, Frequency, Incontinence; No Hematuria, No Retention; O ther (Burning) Musculoskeletal: No other, No neck pain, No shoulder pain, No arm pain; back pain; No hand pain, No leg pain, No foot pain Skin: No Rash, No Lesions, No Jaundice, No Bruising, No Other Objective Vitals Vital Signs Date Time Temp Pulse Resp B/P (MAP) Pulse Ox O2 Delivery O2 Flow Rate FiO2 01/01/25 09:14 92 91/62 01/01/25 08:30 96.3 12 95 96.3 01/01/25 07:55 Nasal Cannula* 2 28 Intake/Output Intake and Output 01/01/25 07:00 Intake Total 750 ml Balance 750 ml Intake Oral 700 ml IV Total 50 ml # Voids 7 # Bowel Movements 1 General Appearance: Alert, Oriented X3, Cooperative, No acute distress HEENT: Atraumatic, PERRLA, EOMI, Mucous membr. moist/pink Neck: Supple Lungs: Clear to auscultation, Normal air movement Cardiovascular: Regular rate, Normal S1, Normal S2, No murmurs, Gallops, Rubs Abdomen: Normal bowel sounds, Soft, No tenderness Neuro: Cranial nerves 3-12 NL Psych/Mental Status: Mental status NL Medications Current Medications Medications Dose Ordered Sig/Nam Route Start Time Stop Time Status Last Admin Dose Admin Ceftriaxone Sodium 50 ml @ 100 mls/hr DAILY@09 IV 12/31/24 09:00 01/01/25 08:12 100 MLS/HR Metoprolol Tartrate 25 mg BID PO 12/30/24 10:00 01/01/25 08:14 25 MG Sodium Chloride 10 ml Q8HR IV 12/30/24 06:00 12/31/24 21:31 10 ML Acetaminophen/ Hydrocodone Bitart 1 tab Q4HP PRN PO 12/30/24 05:30 01/01/25 08:29 1 TAB Ondansetron HCl 4 mg Q4HP PRN IV 12/30/24 05:30 Docusate Sodium 100 mg BIDPRN PRN PO 12/30/24 05:30 Acetaminophen 650 mg Q6HP PRN PO 12/30/24 05:30 Morphine Sulfate 2 mg Q4HPRN PRN IV 12/30/24 05:30 12/30/24 06:49 2 MG Nitroglycerin 0.4 mg Q5MINP PRN SL 12/30/24 05:30 Morphine Sulfate 2 mg Q30M PRN IV 12/30/24 05:30 Clonidine HCl 0.1 mg Q4HP PRN PO 12/30/24 05:45 Cyclobenzaprine HCl 10 mg Q8HPRN PRN PO 12/30/24 14:00 12/31/24 00:39 10 MG Laboratory Results Laboratory Tests 12/31/24 05:56 Urinalysis Test 12/29/24 21:45 01/01/25 08:08 Urine Mucus Few (None Seen) Urine Color Light-yellow (Yellow) Urine Clarity Clear (Clear) Urine pH 6.0 (5.0-9.0) Urine Specific [place] 1.020 (1.001-1.035) Urine Protein Negative (Negative) Urine Ketones Negative (Negative) Urine Blood 2+ /uL (Negative) H Urine Nitrite Negative (Negative) Urine Bilirubin Negative (Negative) Urine Urobilinogen Normal mg/dL (Negative) Urine Leukocyte Esterase Negative /uL (Negative) Urine RBC 90 /hpf (0 - 4) Urine Microscopic WBC 6 /HPF (0-5) H Urine Squamous Epithelial Cells Few /hpf (<5) Urine Bacteria Few /hpf (None Seen) H Urine Glucose Normal mg/dL (Normal) Assessment/Plan Assessment/Plan Intractable low back pain UTI (urinary tract infection) Hematuria, unspecified Continuing current management. Continuing with IV antibiotic. We will follow up with culture. I will review CT scan of lumbar spine showed mild stenosis. Continuing pain medication We will add Flexeril, muscle relaxant 10 mg every 8 hours as needed This medical document was created using an electronic medical record system with [employer] direct computerized dictation system. Although this document has been carefully reviewed, there may still be some phonetic and typographical errors. These areas are purely typographical due to imperfections of the software programs, and do not reflect any compromise in the patient's medical care. Plan discussed with: Patient Date of Service: Jan 01, 2025 Billing Provider: SONIDO MATAMOROS MD Common Visit Codes: [id number] INP/OBS CARE(HIGH) SONIDO MATAMOROS MD Jan 01, 2025 12:15
[2025-01-01 12:30] VITALS: BP 96/70; PULSE 91; RESP 18; TEMP 97.5; O2SAT 91
[2025-01-01 16:30] VITALS: BP 119/85; PULSE 94; RESP 14; TEMP 97.6; O2SAT 96
[2025-01-01 21:00] VITALS: BP 112/74; PULSE 108; RESP 21; TEMP 98.4; O2SAT 97
[2025-01-02 05:00] VITALS: BP 109/81; PULSE 95; RESP 18; TEMP 97.9; O2SAT 100
[2025-01-02 08:37] VITALS: BP_SYST 100; BP_SYST 124; BP_DIAS 63; PULSE 87; PULSE 89; RESP 17; RESP 19; TEMP 96.9; TEMP 97.1; O2SAT 91; O2SAT 96
[2025-01-02 13:00] VITALS: BP 102/75; PULSE 73; RESP 19; TEMP 98.2; O2SAT 99
--- NOTE | 2025-01-02 13:12 | DVHPN2 ---
Subjective The patient is seen and examined at bedside. Still complain of back pain and abdominal pain. Reviewed: Care Plan, H&P, Labs, Medications, Previous Orders, Radiology Changes from previous H/P or p: No Changes Eyes: No Pain, No Vision change, No Conjunctivae inflammation, No Eyelid inflammation, No Other, No Redness ENT: No Ear pain, No Ear discharge, No Nose pain, No Nose discharge, No Nose congestion, No Mouth pain, No Mouth swelling, No Throat pain, No Throat swelling, No Other Cardiovascular: No Chest Pain, No Palpitations, No Orthopnea, No Paroxysmal Noc. Dyspnea, No Edema, No Lt Headedness, No Other Respiratory: No Cough, No Dry, No Shortness of breath, No SOB with excertion, No Wheezing, No Hemoptysis, No Pleuritic Pain, No Sputum, No Other Gastrointestinal: No Nausea, No Vomiting; Abdominal Pain (LLQ); No Diarrhea, No Constipation, No Melena, No Hematochezia, No Other Genitourinary: Dysuria, Frequency, Incontinence; No Hematuria, No Retention; O ther (Burning) Musculoskeletal: No other, No neck pain, No shoulder pain, No arm pain; back pain; No hand pain, No leg pain, No foot pain Skin: No Rash, No Lesions, No Jaundice, No Bruising, No Other Objective Vitals Vital Signs Date Time Temp Pulse Resp B/P (MAP) Pulse Ox O2 Delivery O2 Flow Rate FiO2 01/02/25 08:37 97.1 89 19 124/63 (83) 96 97.1 01/02/25 08:02 Nasal Cannula* 3 32 Intake/Output Intake and Output 01/02/25 07:00 Intake Total 700 ml Output Total 725 ml Balance -25 ml Intake Oral 650 ml IV Total 50 ml Output Urine Total 725 ml # Voids 2 General Appearance: Alert, Oriented X3, Cooperative, No acute distress HEENT: Atraumatic, PERRLA, EOMI, Mucous membr. moist/pink Neck: Supple Lungs: Clear to auscultation, Normal air movement Cardiovascular: Regular rate, Normal S1, Normal S2, No murmurs, Gallops, Rubs Abdomen: Normal bowel sounds, Soft, No tenderness Neuro: Cranial nerves 3-12 NL Psych/Mental Status: Mental status NL Medications Current Medications Medications Dose Ordered Sig/Nam Route Start Time Stop Time Status Last Admin Dose Admin Ceftriaxone Sodium 50 ml @ 100 mls/hr DAILY@09 IV 12/31/24 09:00 01/02/25 08:19 100 MLS/HR Metoprolol Tartrate 25 mg BID PO 12/30/24 10:00 01/02/25 08:20 25 MG Sodium Chloride 10 ml Q8HR IV 12/30/24 06:00 01/02/25 06:00 10 ML Acetaminophen/ Hydrocodone Bitart 1 tab Q4HP PRN PO 12/30/24 05:30 01/02/25 08:19 1 TAB Ondansetron HCl 4 mg Q4HP PRN IV 12/30/24 05:30 Docusate Sodium 100 mg BIDPRN PRN PO 12/30/24 05:30 Acetaminophen 650 mg Q6HP PRN PO 12/30/24 05:30 Morphine Sulfate 2 mg Q4HPRN PRN IV 12/30/24 05:30 12/30/24 06:49 2 MG Nitroglycerin 0.4 mg Q5MINP PRN SL 12/30/24 05:30 Morphine Sulfate 2 mg Q30M PRN IV 12/30/24 05:30 Clonidine HCl 0.1 mg Q4HP PRN PO 12/30/24 05:45 Cyclobenzaprine HCl 10 mg Q8HPRN PRN PO 12/30/24 14:00 12/31/24 00:39 10 MG Laboratory Results Laboratory Tests 12/31/24 05:56 Urinalysis Test 12/29/24 21:45 01/01/25 08:08 Urine Mucus Few (None Seen) Urine Color Light-yellow (Yellow) Urine Clarity Clear (Clear) Urine pH 6.0 (5.0-9.0) Urine Specific [place] 1.020 (1.001-1.035) Urine Protein Negative (Negative) Urine Ketones Negative (Negative) Urine Blood 2+ /uL (Negative) H Urine Nitrite Negative (Negative) Urine Bilirubin Negative (Negative) Urine Urobilinogen Normal mg/dL (Negative) Urine Leukocyte Esterase Negative /uL (Negative) Urine RBC 90 /hpf (0 - 4) Urine Microscopic WBC 6 /HPF (0-5) H Urine Squamous Epithelial Cells Few /hpf (<5) Urine Bacteria Few /hpf (None Seen) H Urine Glucose Normal mg/dL (Normal) Labs and/or images reviewed: Labs reviewed by me Assessment/Plan Assessment/Plan Intractable low back pain UTI (urinary tract infection) Hematuria, unspecified Ileus per CT scan Also mild spinal stenosis in the lumbar area Continuing current management. Continuing with IV antibiotic. We will follow up with culture. I will review CT scan of lumbar spine showed mild stenosis. Continuing pain medication. Advised the patient to avoid pain medication if possible to avoid worsened ileus Encouraged the patient to be out of bed and ambulate to improve her ileus We will add Flexeril, muscle relaxant 10 mg every 8 hours as needed This medical document was created using an electronic medical record system with [employer] direct computerized dictation system. Although this document has been carefully reviewed, there may still be some phonetic and typographical errors. These areas are purely typographical due to imperfections of the software programs, and do not reflect any compromise in the patient's medical care. Plan discussed with: Patient Date of Service: Jan 02, 2025 Billing Provider: SONIDO MATAMOROS MD Common Visit Codes: [id number] INP/OBS CARE(HIGH) SONIDO MATAMOROS MD Jan 02, 2025 13:12
[2025-01-02 16:54] VITALS: BP 116/77; PULSE 92; RESP 16; TEMP 98; O2SAT 92
[2025-01-02 21:00] VITALS: BP 129/89; PULSE 116; RESP 24; TEMP 97.6; O2SAT 99
[2025-01-02] MEDS: ONDANSETRON HCL 4 MG/2 ML VIAL IV PRN (23:27)
[2025-01-02] MEDS: TEMAZEPAM 15 MG CAP PO ONE (23:27)
[2025-01-03] VITALS (9 sets, daily range): BP systolic 101–126; BP diastolic 54–85; PULSE 74–130; RESP 16–18; TEMP 97.5–98.1; O2SAT 85–100
[2025-01-03] MEDS: ALBUTEROL SULF 2.5 MG/0.5ML(0.5%) NEB SOLN NEB PRN (00:16)
[2025-01-03] MEDS ORDERED: HYDR-4902 PO (12:08)
[2025-01-03] MEDS ORDERED: CYCL-611 PO (12:08)
[2025-01-03] MEDS ORDERED: CEPH250C PO (12:08)
--- NOTE | 2025-01-03 12:14 | DVHDS2 ---
Discharge Summary Date of Admission Dec 30, 2024 at 05:29 Date of Discharge: Jan 03, 2025 Admitting Diagnosis Intractable low back pain UTI (urinary tract infection) Hematuria, unspecified Labs/Diagnostic Data: Laboratory Results Test 01/01/25 08:08 12/31/24 05:56 12/29/24 22:41 12/29/24 21:45 Urine Color Light-yellow (Yellow) Urine Clarity Clear (Clear) Urine pH 6.0 (5.0-9.0) Urine Specific [place] 1.020 (1.001-1.035) Urine Protein Negative (Negative) Urine Ketones Negative (Negative) Urine Blood 2+ /uL (Negative) Urine Nitrite Negative (Negative) Urine Bilirubin Negative (Negative) Urine Urobilinogen Normal mg/dL (Negative) Urine Leukocyte Esterase Negative /uL (Negative) Urine RBC 90 /hpf (0 - 4) Urine Microscopic WBC 6 /HPF (0-5) Urine Squamous Epithelial Cells Few /hpf (<5) Urine Bacteria Few /hpf (None Seen) Urine Glucose Normal mg/dL (Normal) White Blood Count 5.1 10^3/uL (4.4-10.8) Red Blood Count 4.46 10^6/uL (4.0-5.20) Hemoglobin 8.6 g/dL (12.2-16.2) Hematocrit 29.6 % (36.0-46.0) Mean Corpuscular Volume 66.4 fL (80.0-100.0) Mean Corpuscular Hemoglobin 19.3 pg (28.0-32.0) Mean Corpuscular Hemoglobin Concent 29.0 g/dL (32.0-36.0) Red Cell Distribution Width 20.9 % (11.8-14.3) Platelet Count 156 10^3/uL (140-450) Mean Platelet Volume 9.3 fL (6.9-10.8) Neutrophils (%) (Auto) 68.5 % (37.0-80.0) Lymphocytes (%) (Auto) 21.5 % (10.0-50.0) Monocytes (%) (Auto) 6.3 % (0.0-12.0) Eosinophils (%) (Auto) 2.7 % (0.0-7.0) Basophils (%) (Auto) 1.0 % (0.0-2.0) Neutrophils # (Auto) 3.5 10 ^3/uL (1.6-8.6) Lymphocytes # (Auto) 1.1 10 ^3/uL (0.4-5.4) Monocytes # (Auto) 0.3 10 ^3/uL (0-1.3) Eosinophils # (Auto) 0.1 10 ^3/uL (0-0.8) Basophils # (Auto) 0 10 ^3/uL (0-0.2) Nucleated Red Blood Cells 0.1 % Sodium Level 140 mmol/L (136-145) Potassium Level 4.9 mmol/L (3.5-5.1) Chloride Level 108 mmol/L (98-107) Carbon Dioxide Level 25 mmol/L (20-31) Anion Gap 7 (5-15) Blood Urea Nitrogen 13 mg/dL (9-23) Creatinine 0.83 mg/dL (0.550-1.02) Glomerular Filtration Rate Calc 85 mL/min (>90) BUN/Creatinine Ratio 15.7 (10.0-20.0) Serum Glucose 102 mg/dL (74-106) Calcium Level 9.0 mg/dL (8.7-10.4) Total Bilirubin 0.3 mg/dL (0.2-1.0) Aspartate Amino Transferase (AST) 24 U/L (13-40) Alanine Aminotransferase (ALT) 23 U/L (7-40) Alkaline Phosphatase 54 U/L (46-116) Total Protein 6.2 g/dL (5.7-8.2) Albumin 3.6 g/dL (3.2-4.8) Platelet Estimate Adequate Hypochromasia (manual) Marked Anisocytosis (manual) Moderate Microcytosis Marked Urine Mucus Few (None Seen) Urine Opiates Screen Pos (NEGATIVE) Urine Fentanyl Screen Neg (NEGATIVE) Urine Barbiturates Screen Neg (NEGATIVE) Urine Phencyclidine Screen Neg (NEGATIVE) Urine Amphetamines Screen Pos (NEGATIVE) Urine Benzodiazepines Screen Neg (NEGATIVE) Urine Cocaine Screen Neg (NEGATIVE) Urine Cannabinoids Screen Neg (NEGATIVE) Other Laboratory Tests 12/31/24 05:56 Brief Hx & Hospital Course: This is a 54 years old female with past medical history of asthma, congestive heart failure, COPD, gallstone and liver disease come to [facility] with chief complaint of back pain. The patient had experience constant low back pain with stabbing sensation radiating to her left and right lower abdomen. Patient's CT scan abdomen and pelvis showed no bowel obstruction, no fluid collection, normal appendix, possible ileus or enteritis. Lumbar spine CT scan showed no acute fracture or traumatic malalignment. Patient does have moderate degenerative disc narrowing at L5-S1. The patient was given pain medication and muscle relaxants. Her back pain improved. The patient was started on clear liquid diet and advanced as tolerated. Her abdominal pain improved. I am going to discharge her home today. Advised her to follow up with primary care physician 1-2 weeks. Follow up with GI specialist as outpatient if she continuing to have abdominal pain. Physical exam: HEENT: Normocephalic atraumatic pupils equal react to light and accommodation. Extraocular muscles intact, conjunctiva pink, oropharynx moist, no thrush, no exudate. Lymphatic: No lymphadenopathy Cardiovascular exam: S1, S2 was heard. No murmurs, rubs, gallops Lung: Clear on auscultation bilaterally, no wheeze, rale, rhonchi. GI: Abdominal soft, nondistended, nontenderness, positive bowel sounds. Extremity: No crepitus, cyanosis, edema. Pedal pulses present bilateral. Full range of motion. Skin: Normal turgor, no rash. Psych: Alert, oriented x3. Neurology: No focal deficits, cranial nerve II to XII grossly intact. This medical document was created using an electronic medical record system with [employer] direct computerized dictation system. Although this document has been carefully reviewed, there may still be some phonetic and typographical errors. These areas are purely typographical due to imperfections of the software programs, and do not reflect any compromise in the patient's medical care. Condition at Discharge: Stable Final Diagnosis/Problems List Intractable low back pain UTI (urinary tract infection) Hematuria, unspecified Ileus per CT scan Mild spinal stenosis in the lumbar area Discharge Disposition: Home Discharge Instruct/Medications Diet: Cardiac 2g Na,low cholest Activity: No Restrictions, As Tolerated Follow Up/Referral: pcp 1-2 weeks Medications: norco 5/325 one tab q4h prn flexeril 10mg q8h keflex 250mg qid x 7 days Resume home meds Scheduled Cephalexin (Keflex Capsule), 1 CAP PO QID Empagliflozin (Jardiance), 10 MG PO DAILY Furosemide (Lasix), 1 TAB PO DAILY Lisinopril (Lisinopril), 2.5 MG PO DAILY Metoprolol Tartrate (Lopressor), 12.5 MG PO BID Spironolactone (Aldactone), 12.5 MG PO DAILY Scheduled PRN Cyclobenzaprine HCl (Cyclobenzaprine Hydrochlo), 10 MG PO Q8HPRN PRN Hydrocodone-Acetaminophen (Hydrocodone Bitartrate/AC 5-325 mg), 1 TAB PO Q4HP PRN Discharge Statement: "Patient was advised to return to the ER or call 911 if any headaches, dizziness, shortness of breath, chest pain, abdominal pain, bleeding, fevers, or worsening of medical condition. Patient was counseled about treatment plan, medications, possible side effects, patientverbalized understanding. All questions were answered to the best of my ability. This discharge took greater then 30 minutes in planning, reviewing documentation, counseling the patient, and discussing with other team members." ASSESSMENT ASSESSMENT Assessment UTI Back pain and spasm Date of Service: Jan 03, 2025 Billing Provider: SONIDO MATAMOROS MD Common Visit Codes: 26107-UYF/OBS DISCH DAY >30min SONIDO MATAMOROS MD Jan 03, 2025 12:14
== END 2025-01-03 17:58 | disposition home or self-care (01) | DRG 347 ==
LOC: EDBD 21:33 → ER 21:33 → OVERFLOW 12-30 05:29 → WEST WING 12-30 09:15
PROVIDERS: ADMIT Internal Medicine; ATTEND Internal Medicine
DX: M48.061 Spinal stenosis, lumbar region without neurogenic claudication (principal); K56.7 Ileus, unspecified; I50.9 Heart failure, unspecified; N30.01 Acute cystitis with hematuria; J44.89 Other specified chronic obstructive pulmonary disease; F15.90 Other stimulant use, unspecified, uncomplicated; F17.210 Nicotine dependence, cigarettes, uncomplicated; K80.20 Calculus of gallbladder without cholecystitis without obstruction; Z79.899 Other long term (current) drug therapy
CPT/HCPCS: 36415; 72131; 74176; 80053; 80307; 81001; 85025; 93005; 96365; 96375; G0378; J2405

== ENCOUNTER 2025-02-03 13:18 | Emergency (ER) | payer MEDICAID ==
[~2025-02-03] VITALS: Ht 157.5 cm; Wt 77.7 kg
[~2025-02-03 13:18] MED LIST changes: +CEPH250C PO; +CYCL-611 PO; +HYDR-4902 PO
[2025-02-03 13:20] VITALS: BP 124/76; PULSE 114; RESP 18; TEMP 98.9; O2SAT 97
--- NOTE | 2025-02-03 16:44 | ED.PDOC ---
History of Present Illness HPI Comments 54-year-old female came in because she was having flank pain for the past two days progressively getting worse. Worse pain she had was last night. Denies nausea vomiting diarrhea. Denies any other symptoms. Chief Complaint: Flank Pain Time Seen by MD: 13:30 Primary Care Provider: "I DON'T KNOW HIS NAME" Reviewed Notes: Nurses Notes, Medications, Allergies Allergies: Coded Allergies: NO KNOWN ALLERGIES (Unverified , 10/18/19) Home Meds Active Scripts Cephalexin (KEFLEX CAPSULE) 250 Mg Cp, 1 CAP PO QID, #28 CAP Prov:SONIDO MATAMOROS MD 01/03/25 Hydrocodone-Acetaminophen (Hydrocodone Bitartrate/AC 5-325 mg) 1 Tab Tab, 1 TAB PO Q4HP PRN, #20 TAB Prov:SONIDO MATAMOROS MD 01/03/25 Cyclobenzaprine HCl (Cyclobenzaprine Hydrochlo) 10 Mg Tab, 10 MG PO Q8HPRN PRN, #30 TAB Prov:SONIDO MATAMOROS MD 01/03/25 Furosemide (Lasix) 20 Mg Tb, 1 TAB PO DAILY, #90 TAB 1 Refill Prov:JESSY AG MD 05/05/24 Spironolactone (Aldactone) 25 Mg Tab, 12.5 MG PO DAILY for 30 Days, #15 TAB Prov:JESSY GA MD 05/05/24 Metoprolol Tartrate (Lopressor) 25 Mg Tb, 12.5 MG PO BID for 30 Days, #30 TAB Prov:JESSY AG MD 05/05/24 Lisinopril (Lisinopril) 5 Mg Tab, 2.5 MG PO DAILY for 30 Days, #15 TAB Prov:JESSY AG MD 05/05/24 Empagliflozin (Jardiance) 10 Mg Tab, 10 MG PO DAILY for 30 Days, #30 TAB Prov:JESYS AG MD 05/05/24 Information Source: Patient, Emergency Med Personnel Mode of Arrival: EMS Severity: Mild Timing: Days Duration: Since onset Past Medical History PAST MEDICAL HISTORY: Asthma, CHF, COPD, Gallstones, Liver 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 History Family History Family History: Reviewed,noncontributory to illness, Family hx of DM Social History Smoker: Cigarettes Alcohol: Occasionally Drugs: Methamphetamine Lives In: Home Constitutional: denies: chills, diaphoresis, fatigue, fever, malaise, sweats, weakness, others EENTM: denies: blurred vision, double vision, ear bleeding, ear discharge, ear drainage, ear pain, ear ringing, eye pain, eye redness, hearing loss, mouth pain, mouth swelling, nasal discharge, nose bleeding, nose congestion, nose pain, photophobia, tearing, throat pain, throat swelling, voice changes, others Respiratory: denies: cough, hemoptysis, orthopnea, SOB at rest, shortness of breath, SOB with excertion, stridor, wheezing, others Cardiovascular: denies: chest pain, dizzy spells, diaphoresis, Dyspnea on exertion, edema, irregular heart beat, left arm pain, lightheadedness, palpitations, PND, syncope, others Gastrointestinal: denies: abdomen distended, abdominal pain, blood streaked bowels, constipated, diarrhea, dysphagia, difficulty swallowing, hematemesis, melena, nausea, poor appetite, poor fluid intake, rectal bleeding, rectal pain, vomiting, others Genitourinary: reports: flank pain; denies: abnormal vagina bleeding, burning, dyspareunia, dysuria, frequency, hematuria, incontinence, pain, , vagina discharge, urgency, others Neurological: denies: dizziness, fainting, headache, left sided numbness, left sided weakness, numbness, paresthesia, pre-existing deficit, right sided numbness, right sided weakness, seizure, speech problems, tingling, tremors, weakness, others Musculoskeletal: denies: back pain, gout, joint pain, joint swelling, muscle pain, muscle stiffness, neck pain, others Integumetry: denies: bruises, change in color, change in hair/nails, dryness, laceration, lesions, lumps, rash, wounds, others Allergic/Immunocompromised: denies: Difficulty Healing, Frequent Infections, Hives, Itching, others Hematologic/Lymphatic: denies: anemia, blood clots, easy bleeding, easy bruising, swollen glands, others Endocrine: denies: excessive hunger, excessive sweating, excessive thirst, excessive urination, flushing, intolerance to cold, intolerance to heat, unexplained weight gain, unexplained weight loss, others Psychiatric: denies: anxiety, bipolar disorder, depression, hopeless, panic disorder, schizophrenia, sleepless, suicidal, others Physical Exam General Appearance: Moderate Distress HEENT: Normal ENT Inspection, Pharynx Normal, TMs Normal Neck: Full Range of Motion, Non-Tender, Normal, Normal Inspection Respiratory: Chest Non-Tender, Lungs Clear, No Accessory Muscle Use, No Respiratory Distress, Normal Breath Sounds Cardiovascular: No Edema, No JVD, No Murmur, No Gallop, Normal Peripheral Pulses, Regular Rate/Rhythm Breast Exam: Deferred Gastrointestinal: No Organomegaly, Non Tender, No Pulsatile Mass, Normal Bowel Sounds, Soft Genitalia: Deferred Pelvic: Deferred Rectal: Deferred Extremities: No calf tenderness, Normal capillary refill, Normal inspection, Normal range of motion, Non-tender, No pedal edema Musculoskeletal : Apperance: Normal Neurologic: Alert, tower switch operator II-XII nml as Tested, No Motor Deficits, Normal Affect, Normal Mood, No Sensory Deficits Cerebellar Function: NOT DONE Reflexes: NOT DONE Skin: Dry, Normal Color, Warm Peripheral Pulses: 3+ Radial (R), 3+ Radial (L) Lymphatic: No Adenopathy Was a procedure done? Was a procedure done?: No Differential Dx Considerations may include: Dehydration Electrolyte imbalance X-Ray, Labs, Meds, VS Vital Signs Date Time Temp Pulse Resp B/P (MAP) Pulse Ox O2 Delivery O2 Flow Rate FiO2 02/03/25 13:20 98.9 114 18 124/76 97 98.9 Patient alert. Complaining of flank pain. Vitals stable. Answering all questions. Saturation pristine on room air. Respiratory rate within normal limits. Abdomen is soft nontender. No leg swelling. CT scan of the abdomen was not done because physical examination was pristine. Explained to the patient. Was told to follow up with her primary care physician. Was told to come back if there is any problem. Time of 1ST Reevaluation: 16:42 Reevaluation 1ST: Improved Patient Education/Counseling: Diagnosis, Treatment, Prognosis, Need For Follow Up Family Education/Counseling: No Family Present SEPSIS Sepsis Screen Date sepsis recognized/suspect: Feb 03, 2025 Time Sepsis recognized/suspect: 1320 Recent Procedure: No On Antibiotic Therapy: No Respiratory Rate >20: No Heart Rate >90: Yes Temp<36 C (96.8 F) or >38.3 C: No SBP <90 or MAP <65 mmHG: No New Acute Mental Status Change: No Is the patient on CPAP, BIPAP,: No Physician Orders Urinalysis (02/03/25 14:31) Vital Signs Date Time Temp Pulse Resp B/P (MAP) Pulse Ox O2 Delivery O2 Flow Rate FiO2 02/03/25 13:20 98.9 114 18 124/76 97 98.9 Departure 1 Departure Time of Disposition: 16:43 Impression: Primary Impression: Dehydration Additional Impression: Musculoskeletal pain Disposition: 01 HOME / SELF CARE / HOMELESS Condition: Good Discharged With: Self Critical Care Note Critical Care Time?: No Stability Stability form required: No Heart Score Heart Score: Heart Score Response (Comments) Value History N/A 0 EKG N/A 0 Age N/A 0 Risk Factors N/A 0 Troponin N/A 0 Total 0 WAQAR VERGARA MD Feb 03, 2025 16:44
[2025-02-03] MEDS ORDERED: HYDROcodone-ACET 10/325MG TAB PO ONE (16:45)
== END 2025-02-03 17:05 | disposition home or self-care (01) ==
LOC: EDBD 13:18 → ER 13:18
DX: E86.0 Dehydration (principal); R10.9 Unspecified abdominal pain; I50.9 Heart failure, unspecified; J44.9 Chronic obstructive pulmonary disease, unspecified; F17.210 Nicotine dependence, cigarettes, uncomplicated; F12.90 Cannabis use, unspecified, uncomplicated; Z98.51 Tubal ligation status; Z79.84 Long term (current) use of oral hypoglycemic drugs; Z79.899 Other long term (current) drug therapy

== ENCOUNTER 2025-06-23 12:34 | Inpatient (IN) | payer MEDICAID ==
[~2025-06-23] VITALS: Ht 160 cm; Wt 75.0 kg
--- NOTE | 2025-06-23 13:00 | ED.PDOC ---
HPI Comments This is a 54 year old female LADONNA presenting to the ED with chief complaint of chest pain. EMS reports patient is coming from her home with sternal chest pain with associated SOB since yesterday. Patient relays that she was admitted to [facility] for 4 days with similar symptoms, but was discharged yesterday with her symptoms unresolved. Patient states that her pain is now radiating to her back at this time. EMS notes patient was 98% on RA, but provided a DuoNeb breathing treatment en route to the ED. Patient reports that she is pending pacemaker placement by her ticket writer. Patient denies any N/V, abdominal pain, dizziness, headache, or syncope. Chief Complaint: Chest Pain Time Seen by MD: 12:57 Primary Care Provider: "I DON'T KNOW HIS NAME" Reviewed Notes: Nurses Notes, Survey And Mapping Technician Notes, Medications, Allergies Allergies: Coded Allergies: NO KNOWN ALLERGIES (Unverified , 10/18/19) Home Meds Active Scripts Prednisone (Prednisone) 10 Mg Tab, 10 MG PO DAILY for 5 Days, #5 MG Prov:WAQAR VERGARA MD 06/23/25 Amoxicillin Trihydrate (Amoxicillin) 500 Mg Tab, 1 TAB PO TID for 7 Days, #21 TAB Prov:WAQAR VERGARA MD 06/23/25 Cephalexin (KEFLEX CAPSULE) 250 Mg Cp, 1 CAP PO QID, #28 CAP Prov:SONIDO MATAMOROS MD 01/03/25 Hydrocodone-Acetaminophen (Hydrocodone Bitartrate/AC 5-325 mg) 1 Tab Tab, 1 TAB PO Q4HP PRN, #20 TAB Prov:SONIDO MATAMOROS MD 01/03/25 Cyclobenzaprine HCl (Cyclobenzaprine Hydrochlo) 10 Mg Tab, 10 MG PO Q8HPRN PRN, #30 TAB Prov:SONIDO MATAMOROS MD 01/03/25 Furosemide (Lasix) 20 Mg Tb, 1 TAB PO DAILY, #90 TAB 1 Refill Prov:JESSY AG MD 05/05/24 Spironolactone (Aldactone) 25 Mg Tab, 12.5 MG PO DAILY for 30 Days, #15 TAB Prov:JESSY AG MD 05/05/24 Metoprolol Tartrate (Lopressor) 25 Mg Tb, 12.5 MG PO BID for 30 Days, #30 TAB Prov:JESSY AG MD 05/05/24 Lisinopril (Lisinopril) 5 Mg Tab, 2.5 MG PO DAILY for 30 Days, #15 TAB Prov:JESSY AG MD 05/05/24 Empagliflozin (Jardiance) 10 Mg Tab, 10 MG PO DAILY for 30 Days, #30 TAB Prov:JESSY AG MD 05/05/24 Information Source: Patient, Emergency Med Personnel Mode of Arrival: EMS Severity: Moderate Timing: Days Duration: Since onset Prehospital treatment: None Location: Substernal Radiation: Back Quality: Sharp Onset: At Rest Cardiac Risk Factors: Smoker, HTN PE Risk Factors: None Associated Signs and Symptoms: SOB Past Medical History PAST MEDICAL HISTORY: Asthma, CHF, COPD, Gallstones, HTN, Liver Surgical History: Tubal Ligation 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: No Pertinent 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 Family History Family History: Reviewed,noncontributory to illness, Family hx of DM Social History Smoker: Cigarettes Alcohol: Occasionally Drugs: Methamphetamine Lives In: Home Constitutional: denies: chills, diaphoresis, fatigue, fever, malaise, sweats, weakness, others EENTM: denies: blurred vision, double vision, ear bleeding, ear discharge, ear drainage, ear pain, ear ringing, eye pain, eye redness, hearing loss, mouth pain , mouth swelling, nasal discharge, nose bleeding, nose congestion, nose pain, photophobia, tearing, throat pain, throat swelling, voice changes, others Respiratory: reports: shortness of breath; denies: cough, hemoptysis, orthopnea, SOB at rest, SOB with excertion, stridor, wheezing, others Cardiovascular: reports: chest pain; denies: dizzy spells, diaphoresis, Dyspnea on exertion, edema, irregular heart beat, left arm pain, lightheadedness, palpitations, PND, syncope, others Gastrointestinal: denies: abdomen distended, abdominal pain, blood streaked bowels, constipated, diarrhea, dysphagia, difficulty swallowing, hematemesis, melena, nausea, poor appetite, poor fluid intake, rectal bleeding, rectal pain, vomiting, others Genitourinary: denies: abnormal vagina bleeding, burning, dyspareunia, dysuria, flank pain, frequency, hematuria, incontinence, pain, , vagina discharge, urgency, others Neurological: denies: dizziness, fainting, headache, left sided numbness, left sided weakness, numbness, paresthesia, pre-existing deficit, right sided numbness, right sided weakness, seizure, speech problems, tingling, tremors, weakness, others Musculoskeletal: denies: back pain, gout, joint pain, joint swelling, muscle p ain, muscle stiffness, neck pain, others Integumetry: denies: bruises, change in color, change in hair/nails, dryness, laceration, lesions, lumps, rash, wounds, others Allergic/Immunocompromised: denies: Difficulty Healing, Frequent Infections, Hives, Itching, others Hematologic/Lymphatic: denies: anemia, blood clots, easy bleeding, easy bruising, swollen glands, others Endocrine: denies: excessive hunger, excessive sweating, excessive thirst, excessive urination, flushing, intolerance to cold, intolerance to heat, unexplained weight gain, unexplained weight loss, others Psychiatric: denies: anxiety, bipolar disorder, depression, hopeless, panic disorder, schizophrenia, sleepless, suicidal, others All Other Systems: Reviewed and Negative Physical Exam General Appearance: Moderate Distress, Normal HEENT: Normal ENT Inspection, Pharynx Normal, TMs Normal Neck: Full Range of Motion, Non-Tender, Normal, Normal Inspection Respiratory: Chest Non-Tender, Lungs Clear, No Accessory Muscle Use, No Respiratory Distress, Normal Breath Sounds Cardiovascular: No Edema, No JVD, No Murmur, No Gallop, Normal Peripheral Pulses, Regular Rate/Rhythm Breast Exam: Deferred Gastrointestinal: No Organomegaly, Non Tender, No Pulsatile Mass, Normal Bowel Sounds, Soft Genitalia: Deferred Pelvic: Deferred Rectal: Deferred Extremities: No calf tenderness, Normal capillary refill, Normal inspection, Normal range of motion, Non-tender, No pedal edema Musculoskeletal : Apperance: Normal Neurologic: Alert, medical typist II-XII nml as Tested, No Motor Deficits, Normal Affect, Normal Mood, No Sensory Deficits Cerebellar Function: Normal Reflexes: Normal Skin: Dry, Normal Color, Warm Peripheral Pulses: 3+ Radial (R), 3+ Radial (L) Lymphatic: No Adenopathy EKG EKG : Pulse Rate (adult): 101 Cardiac Rhythm: ST Was a procedure done? Was a procedure done?: No CP Differential Dx Differential Diagnosis: A-fib, A-Flutter, Angina, Anxiety / Panic Attack, Atrial Dysrhythmia, Electrolyte Disorder X-Ray, Labs, Meds, VS Vital Signs Date Time Temp Pulse Resp B/P (MAP) Pulse Ox O2 Delivery O2 Flow Rate FiO2 06/23/25 15:51 110 06/23/25 14:18 108 06/23/25 13:00 101 06/23/25 12:50 101 06/23/25 12:38 98.2 96 20 132/84 98 98.2 Lab Test 06/23/25 16:13 06/23/25 15:47 06/23/25 14:16 06/23/25 13:13 Range/Units Troponin I High Sensitivity 32 33 37 *H </=34 ng/L Urine Color Yellow Yellow Urine Clarity Clear Clear Urine pH 6.5 5.0-9.0 Urine Specific [place] 1.019 1.001-1.035 Urine Protein 1+ H Negative Urine Ketones Negative Negative Urine Blood Negative Negative /uL Urine Nitrite Negative Negative Urine Bilirubin Negative Negative Urine Urobilinogen Normal Negative mg/dL Urine Leukocyte Esterase Negative Negative /uL Urine RBC <1 0 - 4 /hpf Urine Microscopic WBC 2 0-5 /HPF Urine Squamous Epithelial Cells Few <5 /hpf Urine Bacteria None seen None Seen /hpf Urine Glucose Normal Normal mg/dL White Blood Count 9.0 4.4-10.8 10^3/uL Red Blood Count 4.76 4.0-5.20 10^6/uL Hemoglobin 9.8 L 12.2-16.2 g/dL Hematocrit 32.6 L 36.0-46.0 % Mean Corpuscular Volume 68.5 L 80.0-100.0 fL Mean Corpuscular Hemoglobin 20.5 L 28.0-32.0 pg Mean Corpuscular Hemoglobin Concent 30.0 L 32.0-36.0 g/dL Red Cell Distribution Width 18.8 H 11.8-14.3 % Platelet Count 188 140-450 10^3/uL Mean Platelet Volume 9.1 6.9-10.8 fL Neutrophils (%) (Auto) 77.2 37.0-80.0 % Lymphocytes (%) (Auto) 14.9 10.0-50.0 % Monocytes (%) (Auto) 6.7 0.0-12.0 % Eosinophils (%) (Auto) 0.5 0.0-7.0 % Basophils (%) (Auto) 0.7 0.0-2.0 % Neutrophils # (Auto) 6.9 1.6-8.6 10 ^3/uL Lymphocytes # (Auto) 1.3 0.4-5.4 10 ^3/uL Monocytes # (Auto) 0.6 0-1.3 10 ^3/uL Eosinophils # (Auto) 0 0-0.8 10 ^3/uL Basophils # (Auto) 0.1 0-0.2 10 ^3/uL Nucleated Red Blood Cells 0.1 % Sodium Level 138 136-145 mmol/L Potassium Level 3.8 3.5-5.1 mmol/L Chloride Level 102 98-107 mmol/L Carbon Dioxide Level 25 20-31 mmol/L Anion Gap 11 5-15 Blood Urea Nitrogen 9 9-23 mg/dL Creatinine 0.66 0.550-1.02 mg/dL Glomerular Filtration Rate Calc 105 >90 mL/min BUN/Creatinine Ratio 13.6 10.0-20.0 Serum Glucose 102 74-106 mg/dL Calcium Level 9.4 8.7-10.4 mg/dL Patient alert. Came in because of chest discomfort. She continues to smoke cigarettes. Vitals stable. Counseled patient on effects of smoking cigarettes for 15 minutes. Was given steroid. Was given breathing treatment. Heart rate within normal limits. Saturation pristine on room air. Respiratory rate within normal limits. No acute process. No leg swelling. No shortness a breath. No calf tenderness. No discoloration. EKG reviewed does not show any acute changes. Explained to the patient. Was told to follow up with her primary care physician. Was told to come back if there is any problem. Time of 1ST Reevaluation: 13:57 Reevaluation 1ST: Improved Patient Education/Counseling: Diagnosis, Treatment Family Education/Counseling: No Family Present SEPSIS Sepsis Screen Physician Orders Chest Portable (06/23/25 12:45) Vital Signs Date Time Temp Pulse Resp B/P (MAP) Pulse Ox O2 Delivery O2 Flow Rate FiO2 06/23/25 15:51 110 06/23/25 14:18 108 06/23/25 13:00 101 06/23/25 12:50 101 06/23/25 12:38 98.2 96 20 132/84 98 98.2 Laboratory Tests Test 06/23/25 13:13 White Blood Count 9.0 10^3/uL (4.4-10.8) Departure 1 Departure Time of Disposition: 13:22 Impression: Primary Impression: Pneumonitis Disposition: 01 HOME / SELF CARE / HOMELESS Condition: Good e-Prescriptions Prednisone (Prednisone) 10 Mg Tab 10 MG PO DAILY for 5 Days, #5 MG Prov: WAQAR VERGARA MD 06/23/25 Amoxicillin Trihydrate (Amoxicillin) 500 Mg Tab 1 TAB PO TID for 7 Days, #21 TAB Prov: WAQAR VERGARA MD 06/23/25 Discharged With: Self Critical Care Note Critical Care Time?: No Stability Stability form required: No Heart Score Heart Score: Heart Score Response (Comments) Value History Highly Suspicious 2 EKG Normal 0 Age 45-64 1 Risk Factors >3 or Hx ASHD 2 Troponin Normal limit 0 Total 5 I personally scribed for WAQAR VERGARA MD ([email or web address]) on 06/23/25 at 13:00. Electronically submitted by Brian Navas ([email or web address]). WAQAR VERGARA MD Jun 23, 2025 13:00
--- NOTE | 2025-06-23 13:08 | ECG ---
[facility] Test Date: 2025-06-23 Test Time: 12:50:17 Pat Name: YASMIN MENA Department: [facility] ED Patient ID: [id number] Room: 0281T Gender: F Fire Prevention Specialist: marques : 1970 Requested By: WAQAR VERGARA Order Number: [id number] Reading MD: [facility] Measurements Intervals [place] Rate: 101 P: 46 RI: 154 QRS: -2 QRSD: 96 T: 138 QT: 381 QTc: 494 Interpretive Statements Sinus tachycardia Multiple ventricular premature complexes Probable left atrial enlargement LVH with secondary repolarization abnormality Borderline prolonged QT interval Electronically Signed On 06-27-2025 17:22:47 PST by [facility] Please click the below link to view image of tracing.
[2025-06-23] MEDS ORDERED: AMOX500T3 PO (13:23)
[2025-06-23] MEDS ORDERED: PRED10TA PO (13:23)
[2025-06-23 13:25] LABS: Hematocrit 32.6 % (36.0-46.0); Hemoglobin 9.8 g/dL (12.2-16.2); Mean Corpuscular Hemoglobin 20.5 pg (28.0-32.0); Mean Corpuscular Volume 68.5 fL (80.0-100.0); Nucleated Red Blood Cells % 0.1 %
--- NOTE | 2025-06-23 13:48 | DVH ---
CHEST RADIOGRAPH INDICATION: sob TECHNIQUE: Single frontal view of the chest was obtained COMPARISON: XR CHEST 1 VIEW on DOS: 06/17/25, XR CHEST 1 VIEW on DOS: 05/18/25, XR CHEST 1 VIEW on DOS: 03/09/25 FINDINGS: Lines and Tubes: None Lungs: No focal consolidation. Pleura: No effusion. No pneumothorax. Cardiomediastinal contours: Cardiomegaly Bones: No acute osseous abnormality. IMPRESSION: 1. Improving pulmonary vascular congestion when compared to 05/04/2024. 2. Persistent cardiomegaly.
[2025-06-23 14:02] LABS: Chloride 102 mmol/L (98-107); Potassium 3.8 mmol/L (3.5-5.1); Sodium 138 mmol/L (136-145)
[2025-06-23 14:03] LABS: Anion Gap 11 (5-15); Carbon Dioxide 25 mmol/L (20-31)
[2025-06-23 14:04] LABS: Calcium 9.4 mg/dL (8.7-10.4)
[2025-06-23 14:08] LABS: Glucose 102 mg/dL (74-106)
[2025-06-23 14:09] LABS: BUN/Creatinine Ratio 13.6 (10.0-20.0); Blood Urea Nitrogen 9 mg/dL (9-23)
--- NOTE | 2025-06-23 14:20 | ECG ---
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
--- NOTE | 2025-06-23 15:52 | ECG ---
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
[2025-06-23 16:00] LABS: Urine Protein, UAD 1+ (Negative)
[2025-06-23 19:43] VITALS: PULSE 109; RESP 14; O2SAT 96
[2025-06-23] MEDS: ONDANSETRON HCL 4 MG/2 ML VIAL IV ONE (20:15)
[2025-06-23] MEDS: MORPHINE SULFATE 4 MG/ML SYR/VIAL IV ONE (20:16)
[2025-06-23] MEDS: SODIUM CHLORIDE 0.9% 1,000 ML IV ONE (20:17)
--- NOTE | 2025-06-23 23:51 | DVHHPRES ---
History of Present Illness Resident Creating Document: FRAN VALDES RESIDENT History of Present Illness Jasmin Karimi is a 54 year old female with past medical history of HFrEF with ejection fraction 15%, bilateral renal mass, asthma, COPD, anxiety presented to the hospital with complaints of chest pain and shortness of breath since 1 day. She rates the chest pain 8 on 10 in intensity, dull, continuous, radiating to the abdomen and aggravating on walking. She also complains of associated cough and dysphagia. She was recently discharged from [facility] for chest pain. She reports of having an angiogram done by Dr. Azam Zee on . She reports of being scheduled for an ICD/ pacemaker. Last echo in April. Patient states that she slept in her trailer in the cold at night, and this exacerbated her symptoms. PMHx:HFrEF with ejection fraction 15%, bilateral renal mass, asthma, COPD, anxiety PSHx: None Family history: CAD in grandfather Social history: 30 pack year smoking history,ex methamphetamine abuse. lives in a trailer with daughter Home medication: Lasix, potassium Allergic history: no known allergies Review of Systems Review of Systems General: patient denies fever, fatigue, weaknes, sweating, any recent changes in appetite and weight HEENT: No headaches, visiual changes, hearing loss, tinnitus, nasal congestion and discharge, and sore throat. Cardiovascular: complaints of shortness of breath and chest pain Respiratory: No wheezing. complaints of cough Gastrointestinal: Denies nausea, vomiting, dysphagia, odynophagia, heartburn, abdominal pain, flatulence, bloating, diarrhea, constipation, change in stool, or blood in stool. Genitourinary: No dysuria, hematuria, discharge, frequency, urgency, nocturia, incontinence, and urinary retention. Endocrine: No heat or cold intolerance, polydipsia, polyuria, and polyphagia. Neurological: No dizziness, extremity weakness and numbness, tremors, gait disturbance, seizures, and memory impairment. Psychiatric: Denies depression, anxiety,or insomnia. Musculoskeletal: Denies neck pain, stiffness and swelling, back pain, muscle weakness, joint pain, stiffness, swelling, or limited range of motion. Skin: No rashes, itching, skin lesion, changes in hair, nail, skin texture and breast. Hematologic/Lymphatic: Denies easy bruising, bleeding tendencies, or lymph node enlargement. Allergies: Coded Allergies: NO KNOWN ALLERGIES (Unverified , 10/18/19) Exam Vital Signs Vital Signs Date Time Temp Pulse Resp B/P (MAP) Pulse Ox O2 Delivery O2 Flow Rate FiO2 06/23/25 22:22 98.5 110 20 107/78 (88) 96 98.5 06/23/25 22:22 Room Air 06/23/25 19:43 0 21 Exam General Appearance: Alert, Oriented X3, Cooperative, No acute distress HEENT: Atraumatic, PERRLA, EOMI, Mucous membrane moist/pink Respiratory: mild crackles Cardiovascular: Regular rate, Normal S1, Normal S2, No murmurs, chest wall tenderness present Abdominal: Normal bowel sounds, Soft, No tenderness, No hepatospenomegaly, No masses Extremities: bilateral pitting pedal edema present Skin: No rashes, No breakdown, No significant lesion Neuro: Normal gait, Normal speech, Strength at 5/5 X4 ext, Normal tone, Sensation intact, Cranial nerves 3-12 NL, Reflexes 2+ Psych/Mental Status: Mental status NL, Mood NL Labs/Xrays Labs Test 06/23/25 16:13 06/23/25 15:47 06/23/25 13:13 Range/Units Troponin I High Sensitivity 32 </=34 ng/L Urine Color Yellow Yellow Urine Clarity Clear Clear Urine pH 6.5 5.0-9.0 Urine Specific [place] 1.019 1.001-1.035 Urine Protein 1+ H Negative Urine Ketones Negative Negative Urine Blood Negative Negative /uL Urine Nitrite Negative Negative Urine Bilirubin Negative Negative Urine Urobilinogen Normal Negative mg/dL Urine Leukocyte Esterase Negative Negative /uL Urine RBC <1 0 - 4 /hpf Urine Microscopic WBC 2 0-5 /HPF Urine Squamous Epithelial Cells Few <5 /hpf Urine Bacteria None seen None Seen /hpf Urine Glucose Normal Normal mg/dL White Blood Count 9.0 4.4-10.8 10^3/uL Red Blood Count 4.76 4.0-5.20 10^6/uL Hemoglobin 9.8 L 12.2-16.2 g/dL Hematocrit 32.6 L 36.0-46.0 % Mean Corpuscular Volume 68.5 L 80.0-100.0 fL Mean Corpuscular Hemoglobin 20.5 L 28.0-32.0 pg Mean Corpuscular Hemoglobin Concent 30.0 L 32.0-36.0 g/dL Red Cell Distribution Width 18.8 H 11.8-14.3 % Platelet Count 188 140-450 10^3/uL Mean Platelet Volume 9.1 6.9-10.8 fL Neutrophils (%) (Auto) 77.2 37.0-80.0 % Lymphocytes (%) (Auto) 14.9 10.0-50.0 % Monocytes (%) (Auto) 6.7 0.0-12.0 % Eosinophils (%) (Auto) 0.5 0.0-7.0 % Basophils (%) (Auto) 0.7 0.0-2.0 % Neutrophils # (Auto) 6.9 1.6-8.6 10 ^3/uL Lymphocytes # (Auto) 1.3 0.4-5.4 10 ^3/uL Monocytes # (Auto) 0.6 0-1.3 10 ^3/uL Eosinophils # (Auto) 0 0-0.8 10 ^3/uL Basophils # (Auto) 0.1 0-0.2 10 ^3/uL Nucleated Red Blood Cells 0.1 % Sodium Level 138 136-145 mmol/L Potassium Level 3.8 3.5-5.1 mmol/L Chloride Level 102 98-107 mmol/L Carbon Dioxide Level 25 20-31 mmol/L Anion Gap 11 5-15 Blood Urea Nitrogen 9 9-23 mg/dL Creatinine 0.66 0.550-1.02 mg/dL Glomerular Filtration Rate Calc 105 >90 mL/min BUN/Creatinine Ratio 13.6 10.0-20.0 Serum Glucose 102 74-106 mg/dL Calcium Level 9.4 8.7-10.4 mg/dL SEPSIS Sepsis Screen Date sepsis recognized/suspect: Jun 23, 2025 Time Sepsis recognized/suspect: 1939 Recent Procedure: No On Antibiotic Therapy: No Respiratory Rate >20: No Heart Rate >90: Yes Temp<36 C (96.8 F) or >38.3 C: No SBP <90 or MAP <65 mmHG: No New Acute Mental Status Change: No Is the patient on CPAP, BIPAP,: No Physician Orders Admit (06/23/25 23:49) Allergies (06/23/25 23:49) Code Status (06/23/25 23:49) Enoxaparin Sodium (Lovenox) (06/24/25 10:00) Complete Blood Count (06/24/25 04:00) Comprehensive Metabolic Panel (06/24/25 04:00) Cardiac Diet-2gna,Lofat,Lochol (06/24/25 Breakfast) Condition: Fair (06/23/25 23:49) Vital Signs Date Time Temp Pulse Resp B/P (MAP) Pulse Ox O2 Delivery O2 Flow Rate FiO2 06/23/25 22:22 98.5 110 20 107/78 (88) 96 98.5 06/23/25 22:22 110 20 96 Room Air 06/23/25 20:16 102 16 115/78 06/23/25 19:43 109 14 96 Room Air* 0 21 06/23/25 19:36 97.7 109 14 111/72 (85) 98 97.7 Laboratory Tests Test 06/23/25 13:13 White Blood Count 9.0 10^3/uL (4.4-10.8) Medications Medications Dose Ordered Sig/Nam Route Start Time Stop Time Status Last Admin Dose Admin Morphine Sulfate 4 mg ONCE ONCE IV 06/23/25 20:00 06/23/25 20:01 DC 06/23/25 20:16 4 MG Ondansetron HCl 4 mg ONCE ONCE IV 06/23/25 20:00 06/23/25 20:01 DC 06/23/25 20:15 4 MG Sodium Chloride 1,000 ml @ 1,000 mls/hr Q1H ONCE IV 06/23/25 20:00 06/23/25 20:59 DC 06/23/25 20:17 1,000 MLS/HR Assessment/Plan Assessment/Plan Assessment and plan Acute on chronic HFrEF HFrEF with ejection fraction 15% Chest pain likely musculoskeletal NSTEMI type 2 Echo in April:Severely dilated left ventricle. Severely reduced left ventricular systolic function estimated ejection fraction of 15% in a global fashion. There is a grade2 diastolic dysfunction. Chest x-ray: pulmonary vascular congestion, cardiomegaly IV Lasix Spironolactone, losartan BNP Magnesium, lactic acid EKG, troponin Microcytic anemia Stool occult blood Iron panel, ferritin History of COPD History of asthma Follow up with PCP on discharge Anxiety Not on any home medication Follow up with PCP on discharge PUD prophylaxis: protonix 40mg DVT prophylaxis: Lovenox 40mg Barriers to discharge: Medical diagnosis and management in progress. Patient lives with family in [facility]. Independent for ADL. PCP: Dr. Zee Specialist Relevant To Admission: Cardiology Case discussed with Dr. Monzon. Code Status: Full Code. Complex patient care discussion needed. Spend total 35 minutes for bedside assessment, case discussion and management. Plan discussed with: Patient My Orders Orders - FRAN VALDES Procedure Category Date Status Time Admit ADMIT 06/23/25 Transmitted 23:49 Allergies MARTA 06/23/25 Transmitted 23:49 Code Status CODE 06/23/25 Transmitted 23:49 Enoxaparin Sodium PHA 06/24/25 Transmitted (Lovenox) 10:00 Complete Blood Count LAB 06/24/25 Verified 04:00 Comprehensive LAB 06/24/25 Verified Metabolic Panel 04:00 Cardiac DIET 06/24/25 Transmitted Diet-2gna,Lofat,Lochol Breakfast Condition: Fair MARTA 06/23/25 Transmitted 23:49 Visit Coding STANDARD RES Billing Provider: DIANA MONZON MD Date of Service if different f: Jun 23, 2025 Common Visit Codes: 86445-WZOFAGU INP/OBS CARE (HIGH) Secondary Visit Codes: 47861-UPMVPOPE CARE PLAN 30 MINUTES FRAN VALDES Jun 23, 2025 23:51
[2025-06-24] VITALS (9 sets, daily range): BP systolic 92–105; BP diastolic 62–70; PULSE 65–117; RESP 18–20; TEMP 97.8–98.9; O2SAT 91–98
[2025-06-24 01:02] LABS: Magnesium 1.8 mg/dL (1.6-2.6)
[2025-06-24 01:23] LABS: Lactic Acid w/Reflex 2.5 mmol/L (0.4-2.0)
[2025-06-24] MEDS: FUROSEMIDE 40 MG/4 ML VIAL IV ONE (01:31)
[2025-06-24] MEDS: HYDROcodone-ACET 5/325MG TAB PO ONE (03:09)
[2025-06-24 03:12] LABS: Hemoglobin 8.8 g/dL (12.2-16.2); Nucleated Red Blood Cells % 0.1 %
[2025-06-24 03:15] LABS: Hematocrit 29.6 % (36.0-46.0); Mean Corpuscular Hemoglobin 20.2 pg (28.0-32.0); Mean Corpuscular Volume 67.7 fL (80.0-100.0)
[2025-06-24 03:27] LABS: Alanine Aminotransferase 19 U/L (7-40); Albumin 4.2 g/dL (3.2-4.8); Alkaline Phosphatase 60 U/L (46-116); Anion Gap 10 (5-15); BUN/Creatinine Ratio 15.2 (10.0-20.0); Bilirubin, Total 0.6 mg/dL (0.2-1.0); Blood Urea Nitrogen 17 mg/dL (9-23); Calcium 8.9 mg/dL (8.7-10.4); Carbon Dioxide 26 mmol/L (20-31); Chloride 105 mmol/L (98-107); Glucose 86 mg/dL (74-106); Potassium 4.3 mmol/L (3.5-5.1); Sodium 141 mmol/L (136-145); Total Protein 7.0 g/dL (5.7-8.2)
[2025-06-24 03:35] LABS: Iron 25.0 ug/dL (50-170)
[2025-06-24 03:36] LABS: Total Iron Binding Capacity 390.0 ug/dL (250-425)
[2025-06-24 05:01] LABS: Cannabinoid Screen, Urine Neg (NEGATIVE); Opiate Scree,Urine Neg (NEGATIVE)
[2025-06-24 05:09] LABS: Amphetamine Screen, Urine Pos (NEGATIVE); Barbiturate Scree,Urine Neg (NEGATIVE); Benzodiazephine Screen, Urine Neg (NEGATIVE); Cocaine Screen, Urine Neg (NEGATIVE); Phencyclidine Screen, Urine Neg (NEGATIVE)
[2025-06-24] MEDS: ACETAMINOPHEN 325 MG TAB PO SCH (06:23)
[2025-06-24] MEDS: FUROSEMIDE 40 MG/4 ML VIAL IV SCH (06:23)
[2025-06-24] MEDS: LOSARTAN POTASSIUM 25 MG TAB PO SCH (09:00)
[2025-06-24] MEDS ORDERED: LISINOPRIL 5 MG TAB PO SCH (10:00)
[2025-06-24] MEDS: SPIRONOLACTONE 25 MG TAB PO SCH (10:06)
[2025-06-24] MEDS: PANTOPRAZOLE 40 MG/10 ML VIAL INJ IV SCH (10:06)
[2025-06-24] MEDS: ENOXAPARIN SOD 40 MG/0.4 ML SYRINGE SC SCH (10:07)
[2025-06-24] MEDS: METOPROLOL TARTRATE 25 MG TAB PO SCH (15:27)
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
[2025-06-24 16:30] LABS: Triglycerides 76 mg/dL (< 150)
[2025-06-24 16:32] LABS: Cholesterol 120 mg/dL (< 200)
[2025-06-24 16:33] LABS: HDL Cholesterol 30 mg/dL (40-59)
--- NOTE | 2025-06-24 17:05 | DVHPNRES ---
Progress Note Date Seen: Jun 24, 2025 Resident Creating Document: HELEN NAVARRO RESIDENT Medical Necessity Reason Pt with a Central, PICC or Fol: No Subjective Review of Systems Ms. Karimi is a 54 year old female with PMHx of CHF, asthma, COPD, and renal cysts, who presented to [facility] with chief complaint of chest pain and shortness of breath. The patient states that yesterday she had onset of pressure-like/sharp right pectoral chest pain, 9/10 intensity, nonradiating, associated with shortness of breath, nausea, and minor bilateral leg swelling, without aggravating or relieving factors. She denies diaphoresis, fever, vomiting, palpitations, and abdominal pain. Due to persistence of symptoms, she presented to the emergency department for evaluation. On evaluation in the ED, the patient was afebrile, tachycardic, normotensive, saturating adequately on room air. 12 lead EKG shows sinus tachycardia, with PVCs, and probably left atrial enlargement. Initial labs are significant microcytic anemia, mildly elevated troponins which subsequently normalized, BNP 765, and lactic acid 2.5. UDS is positive for amphetamines. Chest xray shows cardiomegaly. Patient was started on IV diuresis and GDMT. The patient was admitted for further work up and management. Prior surgical history: Angiogram with Dr. Zee done at [facility] in April 2025 Allergies: Denies Social: The patient states she used meth for over 20 years with cessation 1 year ago, denies alcohol use, states she smokes 1/2 pack of cigarettes daily for 10 years Home medications: Furosemide 20 mg PO daily PCP: Dr. Zee 06/24/2025: Patient seen at bedside. She states she is well, chest pain has improved. Per nurse, no overnight events to report. She is afebrile, tachycardic, BP within normal range, saturating adequately on room air. We will continue with diuresis at this time and introduce GDMT. Dr. Dominic Zee (her fitness leader) has been consulted for evaluation. Review of Systems: Constitutional: Denies weight loss, fever and chills. HEENT: Denies changes in vision and hearing. Respiratory: Denies shortness of breath and cough Cardiovascular: Denies chest discomfort or palpitations GI: Denies abdominal distention, abdominal pain, diarrhea : Denies dysuria and urinary frequency. Musculoskeletal: Refers lower back pain Skin: Denies rash and pruritus. Neurological: denies dizziness headache vision or hearing problems Objective vital signs Vital Sign Date Time Temp Pulse Resp B/P (MAP) Pulse Ox O2 Delivery O2 Flow Rate FiO2 06/24/25 15:27 107 100/70 06/24/25 13:00 97.8 18 96 97.8 06/24/25 08:00 Room Air* 0 21 Total Intake and Output 06/23/25 06/23/25 06/24/25 15:00 23:00 07:00 Intake Total 1000 ml 810 ml Balance 1000 ml 810 ml medications Current Medications Medications Dose Ordered Sig/Nam Route Start Time Stop Time Status Last Admin Dose Admin Enoxaparin Sodium 40 mg DAILY SC 06/24/25 10:00 06/24/25 10:07 40 MG Spironolactone 25 mg DAILY PO 06/24/25 10:00 06/24/25 10:06 25 MG Pantoprazole Sodium 40 mg DAILY IV 06/24/25 10:00 06/24/25 10:06 40 MG Acetaminophen 650 mg Q6HR PO 06/24/25 07:00 06/24/25 12:54 650 MG Losartan Potassium 25 mg DAILY PO 06/24/25 09:00 Furosemide 40 mg DAILY IV 06/25/25 10:00 Metoprolol Tartrate 12.5 mg BID PO 06/24/25 14:15 06/24/25 15:27 12.5 MG Gabapentin 100 mg BID PO 06/24/25 22:00 Examination General: The patient alert and oriented in person place and time. Patient following commands HEENT: Normocephalic, atraumatic, normal reactive pupils, EOM intact, pink conjunctiva, pink moist mucous membrane Respiratory/pulmonary: Bilateral chest expansion, pain on palpation of right chest wall, crackles are heard in bilateral lower lobes Cardiovascular: Tachycaridic normal S1 and S2, no murmurs Abdomen: Abdomen nondistended, normal bowel sounds, soft, there is no pain to palpation in any of the abdominal quadrants, no palpable masses. Extremities: No deformities, minor lower extremity edema Skin: No rashes or pruritus, there is no sacral edema present at this time. Neurological: Intact cranial nerves with no focal neurologic deficits laboratory and microbiology Laboratory Tests 06/24/25 02:51 Test 06/24/25 02:51 Range/Units Serum Glucose 86 74-106 mg/dL Problem List/Assessment/Plan Problem List/Assessment/Plan Assessment and Plan: Acute on Chronic HFrEF exacerbation - Echocardiogram 05/05/2024: severe dilated left ventricle, severely reduced left ventricular systolic function estimated ejection fraction of 15% in a global fashion, there is grade 2 diastolic dysfunction, normal right ventricular size and dimension, normal right ventricular systolic function. - Echocardiogram has been ordered - Lasix 40 mg IV daily - losartan 25 mg p.o. daily - spironolactone 25 mg p.o. daily - Pending evaluation by Dr. Zee - Strict Is ans Os Microcytic anemia - Monitor H and H - Ferrous sulfate Possible LYUBOV likely due to VMN/hemodynamically mediated - Monitor kidney function - Avoid nephrotoxic drugs COPD, not in exacerbation Asthma, not in exacerbation Tobacco use - I have counseled the patient on the importance of maintaining complete smoking cessation fro over 10 minutes. Substance abuse -UDS + - I have counseled the patient on the importance of maintaining complete substance use cessation for over 14 minutes. Nutrition: Cardiac DVT prophylaxis: Lovenox 40 mg SC daily GI prophylaxis: Protonix 40 mg PO daily Goals of care discussed with the patient for over 35 minutes. FULL CODE. Case discussed with Dr. Monzon Plan discussed with: Patient, Other (Nirse) My Orders My Orders Orders - HELEN NAVARRO RESIDENT Procedure Category Date Status Time Echo 2d Mode Cardiac US 06/24/25 Logged DOP 06:54 Furosemide Injection PHA 06/25/25 In Process (Lasix Injection) 10:00 Metoprolol Tartrate PHA 06/24/25 In Process Tablet (Lopressor Ta 14:15 * Cardiology Consult CONS 06/24/25 Transmitted 14:04 Gabapentin Capsule PHA 06/24/25 In Process (Neurontin Capsule) 22:00 D-Dimer LAB 06/24/25 Logged 16:27 Visit Coding STANDARD RES Billing Provider: DIANA MONZON MD Date of Service if different f: Jun 24, 2025 Common Visit Codes: [id number] INP/OBS CARE(HIGH) HELEN NAVARRO RESIDENT Jun 24, 2025 17:05 DIANA MONZON MD Jun 26, 2025 14:37
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
[2025-06-24] MEDS: GABAPENTIN 100 MG CAP PO SCH (22:05)
[2025-06-25] VITALS (10 sets, daily range): BP systolic 85–115; BP diastolic 51–78; PULSE 70–101; RESP 16–20; TEMP 97–98.2; O2SAT 95–100
[2025-06-25 07:11] LABS: Hemoglobin 9.0 g/dL (12.2-16.2); Nucleated Red Blood Cells % 0.1 %
[2025-06-25 07:14] LABS: Hematocrit 30.5 % (36.0-46.0); Mean Corpuscular Hemoglobin 20.1 pg (28.0-32.0); Mean Corpuscular Volume 68.1 fL (80.0-100.0)
[2025-06-25 07:23] LABS: Anion Gap 9 (5-15); Carbon Dioxide 28 mmol/L (20-31); Chloride 104 mmol/L (98-107); Potassium 4.4 mmol/L (3.5-5.1); Sodium 141 mmol/L (136-145)
[2025-06-25 07:25] LABS: Calcium 9.1 mg/dL (8.7-10.4)
[2025-06-25 07:30] LABS: Blood Urea Nitrogen 18 mg/dL (9-23)
[2025-06-25 07:31] LABS: BUN/Creatinine Ratio 21.2 (10.0-20.0)
[2025-06-25 07:38] LABS: Glucose 117 mg/dL (74-106)
[2025-06-25] MEDS: FUROSEMIDE 40 MG/4 ML VIAL IV SCH (09:18)
--- NOTE | 2025-06-25 11:20 | DVHPN2 ---
Progress Note Date Seen: Jun 25, 2025 Resident Creating Document: ELIZABETH AARON RESIDENT Medical Necessity Reason Pt with a Central, PICC or Fol: No Subjective Review of Systems Patient seen and examined with the bedside No acute overnight event Objective vital signs Vital Sign Date Time Temp Pulse Resp B/P (MAP) Pulse Ox O2 Delivery O2 Flow Rate FiO2 06/25/25 09:40 95 100/66 06/25/25 08:30 97.8 16 95 97.8 06/24/25 20:00 Room Air* 0 21 Total Intake and Output 06/24/25 06/24/25 06/25/25 15:00 23:00 07:00 Intake Total 900 ml 800 ml Balance 900 ml 800 ml medications Current Medications Medications Dose Ordered Sig/Nam Route Start Time Stop Time Status Last Admin Dose Admin Enoxaparin Sodium 40 mg DAILY SC 06/24/25 10:00 06/25/25 09:40 40 MG Spironolactone 25 mg DAILY PO 06/24/25 10:00 06/25/25 09:38 25 MG Pantoprazole Sodium 40 mg DAILY IV 06/24/25 10:00 06/25/25 09:17 40 MG Acetaminophen 650 mg Q6HR PO 06/24/25 07:00 06/25/25 06:24 650 MG Losartan Potassium 25 mg DAILY PO 06/24/25 09:00 06/25/25 09:38 25 MG Furosemide 40 mg DAILY IV 06/25/25 10:00 06/25/25 09:18 40 MG Metoprolol Tartrate 12.5 mg BID PO 06/24/25 14:15 06/25/25 09:40 12.5 MG Gabapentin 100 mg BID PO 06/24/25 22:00 06/25/25 09:19 100 MG Examination Skin - Patients skin is warm and dry. HEENT - normocephalic, atraumatic, moist mucous membranes, no scleral icterus, no conjunctival pallor. Neck - full ROM, no LAD, elevated JVP with the positives hepatojugular reflux Pulmonary - B/L clear breath sounds with a minimal basilar rales cardiovascular - regular S1,S2 heard. peripheral pulses normal radial 2+, pedal 2+. 1+ bilateral LE pitting edema GI - soft, nontender abdomen. no hepatospleenomegaly. Bowel sounds normoactive Neurological - Patient is A/O X 4 . Bilateral upper extremity strength 5/5, bilateral lower extremity strength 5/5, no facial droop, normal speech, no tremor, no sensory deficiets. laboratory and microbiology Laboratory Tests 06/25/25 06:31 Test 06/25/25 06:31 Range/Units Serum Glucose 117 H 74-106 mg/dL Problem List/Assessment/Plan Problem List/Assessment/Plan Acute on chronic heart failure with reduced ejection fraction Acute chest pain, likely costochondritis NSTEMI likely type 2 s/p recent coronary angiogram at the [facility], no stents Active methamphetamine use Plan/Recommendation - initiate guideline directed medical therapy for heart failure as tolerated - diuresis - strict I&Os, 2 g sodium diet - counseled on cessation of methamphetamine use - discussed with Dr. Zee about patient wanted to discuss for AICD placement, he will evaluate the patient. Goals of care discussed with the patient. Plan discussed with Dr. Zee Plan discussed with: Patient ELIZABETH AARON RESIDENT Jun 25, 2025 11:20
[2025-06-25] MEDS: guaiFENesin-DM 100/10mg/5ml SYR PO ONE (15:15)
[2025-06-25] MEDS: KETOROLAC TROMETH 30 MG/ML 1ML VIAL IV ONE (16:57)
--- NOTE | 2025-06-25 18:30 | DVHPNRES ---
Progress Note Date Seen: Jun 25, 2025 Resident Creating Document: HELEN NAVARRO RESIDENT Medical Necessity Reason Pt with a Central, PICC or Fol: No Subjective Review of Systems Ms. Karimi is a 54 year old female with PMHx of CHF, asthma, COPD, and renal cysts, who presented to [facility] with chief complaint of chest pain and shortness of breath. The patient states that yesterday she had onset of pressure-like/sharp right pectoral chest pain, 9/10 intensity, nonradiating, associated with shortness of breath, nausea, and minor bilateral leg swelling, without aggravating or relieving factors. She denies diaphoresis, fever, vomiting, palpitations, and abdominal pain. Due to persistence of symptoms, she presented to the emergency department for evaluation. On evaluation in the ED, the patient was afebrile, tachycardic, normotensive, saturating adequately on room air. 12 lead EKG shows sinus tachycardia, with PVCs, and probably left atrial enlargement. Initial labs are significant microcytic anemia, mildly elevated troponins which subsequently normalized, BNP 765, and lactic acid 2.5. UDS is positive for amphetamines. Chest xray shows cardiomegaly. Patient was started on IV diuresis and GDMT. The patient was admitted for further work up and management. Prior surgical history: Angiogram with Dr. Zee done at [facility] in April 2025 Allergies: Denies Social: The patient states she used meth for over 20 years with cessation 1 year ago, denies alcohol use, states she smokes 1/2 pack of cigarettes daily for 10 years Home medications: Furosemide 20 mg PO daily PCP: Dr. Zee 06/25/2025: Patient seen at bedside. She states she is well, complained of some chest pain throughout the day, described as sharp, started in right pectoral region and later affected retrosternal region as well, worsened by cough and deep inspiration. Pain is reproducible on palpation. EKG was ordered which was insignificant, troponins were negative. She was evaluated by cardiology who recommended optimization of medical management. She is pending evaluation by Dr. Zee. We will continue current management. Objective vital signs Vital Sign Date Time Temp Pulse Resp B/P (MAP) Pulse Ox O2 Delivery O2 Flow Rate FiO2 06/25/25 16:30 97.6 70 18 93/66 (75) 99 97.6 06/24/25 20:00 Room Air* 0 21 Total Intake and Output 06/24/25 06/24/25 06/25/25 15:00 23:00 07:00 Intake Total 900 ml 800 ml Balance 900 ml 800 ml medications Current Medications Medications Dose Ordered Sig/Nam Route Start Time Stop Time Status Last Admin Dose Admin Enoxaparin Sodium 40 mg DAILY SC 06/24/25 10:00 06/25/25 09:40 40 MG Spironolactone 25 mg DAILY PO 06/24/25 10:00 06/25/25 09:38 25 MG Pantoprazole Sodium 40 mg DAILY IV 06/24/25 10:00 06/25/25 09:17 40 MG Acetaminophen 650 mg Q6HR PO 06/24/25 07:00 06/25/25 13:19 650 MG Losartan Potassium 25 mg DAILY PO 06/24/25 09:00 06/25/25 09:38 25 MG Furosemide 40 mg DAILY IV 06/25/25 10:00 06/25/25 09:18 40 MG Metoprolol Tartrate 12.5 mg BID PO 06/24/25 14:15 06/25/25 09:40 12.5 MG Gabapentin 100 mg BID PO 06/24/25 22:00 06/25/25 09:19 100 MG Ketorolac Tromethamine 15 mg Q6HPRN PRN IV 06/25/25 15:15 06/30/25 15:14 Examination General: The patient alert and oriented in person place and time. Patient following commands HEENT: Normocephalic, atraumatic, normal reactive pupils, EOM intact, pink conjunctiva, pink moist mucous membrane Respiratory/pulmonary: Bilateral chest expansion, pain on palpation of right chest wall, crackles are heard in bilateral lower lobes Cardiovascular: normal RRR, normal S1 and S2 Abdomen: Abdomen nondistended, normal bowel sounds, soft, there is no pain to palpation in any of the abdominal quadrants, no palpable masses. Extremities: No deformities, minor lower extremity edema Skin: No rashes or pruritus, there is no sacral edema present at this time. Neurological: Intact cranial nerves with no focal neurologic deficits laboratory and microbiology Laboratory Tests 06/25/25 06:31 Test 06/25/25 06:31 Range/Units Serum Glucose 117 H 74-106 mg/dL Problem List/Assessment/Plan Problem List/Assessment/Plan Assessment and Plan: Acute on Chronic HFrEF exacerbation NSTEMI type 2 - Echocardiogram 05/05/2024: severe dilated left ventricle, severely reduced left ventricular systolic function estimated ejection fraction of 15% in a global fashion, there is grade 2 diastolic dysfunction, normal right ventricular size and dimension, normal right ventricular systolic function. - Echocardiogram has been ordered - Lasix 40 mg IV daily - losartan 25 mg p.o. daily - spironolactone 25 mg p.o. daily - Pending evaluation by Dr. Zee - Per cardiology, optimize medical management - Strict Is ans Os Acute chest pain, likely due to costochondritis - Toradol 15 g IV q 6 hours PRN CAD - S/p Coronary angiogram at [facility] by Dr. Zee in 04/2025, no stents placed Microcytic anemia - Monitor H and H - Ferrous sulfate Possible LYUBOV likely due to VMN/hemodynamically mediated - Monitor kidney function - Avoid nephrotoxic drugs COPD, not in exacerbation Asthma, not in exacerbation Tobacco use - I have counseled the patient on the importance of maintaining complete smoking cessation fro over 10 minutes. Substance abuse -UDS + meth - I have counseled the patient on the importance of maintaining complete substance use cessation for over 14 minutes. Nutrition: Cardiac DVT prophylaxis: Lovenox 40 mg SC daily GI prophylaxis: Protonix 40 mg PO daily Goals of care discussed with the patient for over 35 minutes. FULL CODE. Case discussed with Dr. Monzon Plan discussed with: Patient, Other (Nurse (Jeana)) My Orders My Orders Orders - HELEN NAVARRO RESIDENT Procedure Category Date Status Time Strict I & O MARTA 06/24/25 In Process 20:24 Electrocardigram EKG 06/25/25 Logged 14:07 Electrocardigram EKG 06/25/25 Logged 15:07 Electrocardigram EKG 06/25/25 Logged 17:07 Ketorolac Injection PHA 06/25/25 In Process (Toradol Injection) 15:15 Visit Coding STANDARD RES Billing Provider: DIANA MONZON MD Date of Service if different f: Jun 25, 2025 Common Visit Codes: [id number] INP/OBS CARE(HIGH) HELEN NAVARRO RESIDENT Jun 25, 2025 18:30 DIANA MONZON MD Jun 26, 2025 14:50
[2025-06-25] MEDS: KETOROLAC TROMETH 30 MG/ML 1ML VIAL IV PRN (19:34)
--- NOTE | 2025-06-25 23:31 | DVHPN2 ---
Progress Note - Dictate Date Seen: Jun 25, 2025 Medical Necessity Reason Pt with a Central, PICC or Fol: No Subjective Patient was seen and evaluated in follow up. No acute overnight evente. Patient complains of chest pain. HGB 9, HCT 30.5. Telemetry reviewed. vital signs Vital Sign Date Time Temp Pulse Resp B/P (MAP) Pulse Ox O2 Delivery O2 Flow Rate FiO2 06/25/25 09:40 95 100/66 06/25/25 08:30 97.8 16 95 97.8 06/24/25 20:00 Room Air* 0 21 Total Intake and Output 06/24/25 06/24/25 06/25/25 15:00 23:00 07:00 Intake Total 900 ml 800 ml Balance 900 ml 800 ml medications Current Medications Medications Dose Ordered Sig/Nam Route Start Time Stop Time Status Last Admin Dose Admin Enoxaparin Sodium 40 mg DAILY SC 06/24/25 10:00 06/25/25 09:40 40 MG Spironolactone 25 mg DAILY PO 06/24/25 10:00 06/25/25 09:38 25 MG Pantoprazole Sodium 40 mg DAILY IV 06/24/25 10:00 06/25/25 09:17 40 MG Acetaminophen 650 mg Q6HR PO 06/24/25 07:00 06/25/25 06:24 650 MG Losartan Potassium 25 mg DAILY PO 06/24/25 09:00 06/25/25 09:38 25 MG Furosemide 40 mg DAILY IV 06/25/25 10:00 06/25/25 09:18 40 MG Metoprolol Tartrate 12.5 mg BID PO 06/24/25 14:15 06/25/25 09:40 12.5 MG Gabapentin 100 mg BID PO 06/24/25 22:00 06/25/25 09:19 100 MG objective GENERAL: Alert and oriented x 3. No acute distress. EYES: PERRL, EOMI. Anicteric. HENT: Moist mucous membranes. LUNGS: Clear to auscultation bilaterally. CARDIOVASCULAR: Regular rate and rhythm. ABDOMEN: Soft, non-tender and non-distended. EXTREMITIES: No edema. NEUROLOGIC: No focal neurological deficits. SKIN: Warm, dry. laboratory and microbiology Laboratory Tests 06/25/25 06:31 Test 06/25/25 06:31 Range/Units Serum Glucose 117 H 74-106 mg/dL Problem List Acute on chronic heart failure with reduced ejection fraction. Acute chest pain, likely costochondritis. NSTEMI likely type 2. S/P recent coronary angiogram at the [facility], no stents. Active methamphetamine use. Assessment/Plan Continued all current supportive medical care. Patient has been seen by Luca Lozada, resident on my behalf. We have discussed the plan with the patient. Initiate guideline directed medical therapy for heart failure as tolerated. Diuresis. Strict I&Os, 2 g sodium diet. Counseled on cessation of methamphetamine use. Discussed with me about patient wanting to discuss for AICD placement, I will evaluate the patient. Additional plan as per the hospital course. Plan discussed with: Patient FAHAD DE LA ROSA MD Jun 25, 2025 13:21
[2025-06-26] VITALS (8 sets, daily range): BP systolic 108–131; BP diastolic 69–94; PULSE 90–114; RESP 18–20; TEMP 36.7; O2SAT 96–98
[2025-06-26 06:16] LABS: Chloride 103 mmol/L (98-107); Potassium 4.5 mmol/L (3.5-5.1); Sodium 140 mmol/L (136-145)
[2025-06-26 06:17] LABS: Anion Gap 9 (5-15); Calcium 9.2 mg/dL (8.7-10.4); Carbon Dioxide 28 mmol/L (20-31)
[2025-06-26 06:22] LABS: BUN/Creatinine Ratio 28.0 (10.0-20.0); Blood Urea Nitrogen 30 mg/dL (9-23); Glucose 119 mg/dL (74-106)
[2025-06-26 06:23] LABS: Magnesium 1.9 mg/dL (1.6-2.6)
[2025-06-26] MEDS: guaiFENesin-DM 100/10mg/5ml SYR PO ONE ×2 (06:34→06:37)
--- NOTE | 2025-06-26 10:01 | ECG ---
[facility] Test Date: 2025-06-25 Test Time: 14:24:22 Pat Name: YASMIN MEAN Department: Respiratoy Room: [facility]1T B Gender: F Environmental Issues Instructor: CARLOS : 1970 Requested By: HELEN NAVARRO Order Number: [id number] Reading MD: [facility] Measurements Intervals [place] Rate: 84 P: 55 MO: 161 QRS: 19 QRSD: 99 T: 146 QT: 403 QTc: 477 Interpretive Statements Sinus rhythm Left ventricular hypertrophy Nonspecific T abnormalities, lateral leads Artifact in lead(s) V6 Electronically Signed On 06-27-2025 15:28:24 PST by [facility] Please click the below link to view image of tracing.
[2025-06-26] MEDS: guaiFENesin-DM 100/10mg/5ml SYR ONE (12:19)
[2025-06-26] MEDS ORDERED: SPIR25TA PO (14:01)
[2025-06-26] MEDS ORDERED: EMPA1TAB PO (14:01)
[2025-06-26] MEDS ORDERED: FURO20TA4 PO (14:01)
[2025-06-26] MEDS ORDERED: GAB100C PO (14:01)
[2025-06-26] MEDS ORDERED: LOSA25TA5 PO (14:01)
[2025-06-26] MEDS ORDERED: MET25T PO (14:01)
[2025-06-26] MEDS ORDERED: HYDR-4902 PO (14:05)
--- NOTE | 2025-06-26 16:28 | DVHDSRES ---
Discharge Summary Date of Admission Resident Creating Document: HELEN NAVARRO RESIDENT Jun 23, 2025 at 23:49 Date of Discharge: Jun 26, 2025 Admitting Diagnosis Pneumonitis Wounds: No wounds Labs/Diagnostic Data: Laboratory Results Test 06/26/25 05:26 06/25/25 17:10 06/25/25 06:31 06/24/25 18:08 Sodium Level 140 mmol/L (136-145) Potassium Level 4.5 mmol/L (3.5-5.1) Chloride Level 103 mmol/L (98-107) Carbon Dioxide Level 28 mmol/L (20-31) Anion Gap 9 (5-15) Blood Urea Nitrogen 30 mg/dL (9-23) Creatinine 1.07 mg/dL (0.550-1.02) Glomerular Filtration Rate Calc 63 mL/min (>90) BUN/Creatinine Ratio 28.0 (10.0-20.0) Serum Glucose 119 mg/dL (74-106) Calcium Level 9.2 mg/dL (8.7-10.4) Phosphorus Level 5.2 mg/dL (2.4-5.1) Magnesium Level 1.9 mg/dL (1.6-2.6) Troponin I High Sensitivity 13 ng/L (</=34) White Blood Count 5.8 10^3/uL (4.4-10.8) Red Blood Count 4.48 10^6/uL (4.0-5.20) Hemoglobin 9.0 g/dL (12.2-16.2) Hematocrit 30.5 % (36.0-46.0) Mean Corpuscular Volume 68.1 fL (80.0-100.0) Mean Corpuscular Hemoglobin 20.1 pg (28.0-32.0) Mean Corpuscular Hemoglobin Concent 29.5 g/dL (32.0-36.0) Red Cell Distribution Width 19.3 % (11.8-14.3) Platelet Count 179 10^3/uL (140-450) Mean Platelet Volume 9.5 fL (6.9-10.8) Neutrophils (%) (Auto) 69.7 % (37.0-80.0) Lymphocytes (%) (Auto) 19.0 % (10.0-50.0) Monocytes (%) (Auto) 7.9 % (0.0-12.0) Eosinophils (%) (Auto) 2.5 % (0.0-7.0) Basophils (%) (Auto) 0.9 % (0.0-2.0) Neutrophils # (Auto) 4.0 10 ^3/uL (1.6-8.6) Lymphocytes # (Auto) 1.1 10 ^3/uL (0.4-5.4) Monocytes # (Auto) 0.5 10 ^3/uL (0-1.3) Eosinophils # (Auto) 0.1 10 ^3/uL (0-0.8) Basophils # (Auto) 0.1 10 ^3/uL (0-0.2) Nucleated Red Blood Cells 0.1 % D-Dimer, Quantitative 0.34 mg/L FEU (0.0-0.49) Test 06/24/25 02:51 06/24/25 00:20 06/23/25 15:47 Lactic Acid Level 0.9 mmol/L (0.4-2.0) Iron Level 25 ug/dL (50-170) Total Iron Binding Capacity 390 ug/dL (250-425) Percent Iron Saturation 6.4 % (15-50) Ferritin 16.0 ng/mL (10-291) Total Bilirubin 0.6 mg/dL (0.2-1.0) Aspartate Amino Transferase (AST) 23 U/L (13-40) Alanine Aminotransferase (ALT) 19 U/L (7-40) Alkaline Phosphatase 60 U/L (46-116) Total Protein 7.0 g/dL (5.7-8.2) Albumin 4.2 g/dL (3.2-4.8) Triglycerides Level 76 mg/dL (< 150) Cholesterol Level 120 mg/dL (< 200) LDL Cholesterol 85 mg/dL (< 100) HDL Cholesterol 30 mg/dL (40-59) B-Type Natriuretic Peptide 765.40 pg/mL (0-100) Plasma/Serum Blood Alcohol < 3.0 mg/dL (<10) Urine Color Yellow (Yellow) Urine Clarity Clear (Clear) Urine pH 6.5 (5.0-9.0) Urine Specific [place] 1.019 (1.001-1.035) Urine Protein 1+ (Negative) Urine Ketones Negative (Negative) Urine Blood Negative /uL (Negative) Urine Nitrite Negative (Negative) Urine Bilirubin Negative (Negative) Urine Urobilinogen Normal mg/dL (Negative) Urine Leukocyte Esterase Negative /uL (Negative) Urine RBC <1 /hpf (0 - 4) Urine Microscopic WBC 2 /HPF (0-5) Urine Squamous Epithelial Cells Few /hpf (<5) Urine Bacteria None seen /hpf (None Seen) Urine Glucose Normal mg/dL (Normal) Urine Opiates Screen Neg (NEGATIVE) Urine Fentanyl Screen Neg (NEGATIVE) Urine Barbiturates Screen Neg (NEGATIVE) Urine Phencyclidine Screen Neg (NEGATIVE) Urine Amphetamines Screen Pos (NEGATIVE) Urine Benzodiazepines Screen Neg (NEGATIVE) Urine Cocaine Screen Neg (NEGATIVE) Urine Cannabinoids Screen Neg (NEGATIVE) Other Laboratory Tests 06/26/25 05:26 06/25/25 06:31 Brief Hx & Hospital Course: Ms. Karimi is a 54 year old female with PMHx of CHF, asthma, COPD, and renal cysts, who presented to [facility] with chief complaint of chest pain and shortness of breath. The patient states that yesterday she had onset of pressure-like/sharp right pectoral chest pain, 9/10 intensity, nonradiating, associated with shortness of breath, nausea, and minor bilateral leg swelling, without aggravating or relieving factors. She denies diaphoresis, fever, vomiting, palpitations, and abdominal pain. Due to persistence of symptoms, she presented to the emergency department for evaluation. On evaluation in the ED, the patient was afebrile, tachycardic, normotensive, saturating adequately on room air. 12 lead EKG shows sinus tachycardia, with PVCs, and probably left atrial enlargement. Initial labs are significant microcytic anemia, mildly elevated troponins which subsequently normalized, BNP 765, and lactic acid 2.5. UDS is positive for amphetamines. Chest xray shows cardiomegaly. Patient was started on IV diuresis and GDMT. The patient was admitted for further work up and management. On admission, the patient was evaluated by Dr. Zee who recommended continued medical management and optimization before a AICD may be considered. Echocardiogram was performed. The patient progressed favorably. On evaluation today, she is afebrile, normocardic, normotensive, and saturating adequately on room air. Follow up labs are stable. She is considered stable for discharge home with prescriptions for GDM T. She will follow up outpatient in the discharge clinic, with her PCP, and with Dr. Zee. All medications, indications, treatment regimens, potential side effects have been explained to the patient. All recommendations, questions, and concerns were addressed. She states she understands and agrees. Physical Exam General: The patient alert and oriented in person place and time. Patient following commands HEENT: Normocephalic, atraumatic, normal reactive pupils, EOM intact, pink conjunctiva, pink moist mucous membrane Respiratory/pulmonary: Bilateral chest expansion, pain on palpation of right chest wall, clear sounds bilaterally Cardiovascular: normal RRR, normal S1 and S2 Abdomen: Abdomen nondistended, normal bowel sounds, soft, there is no pain to palpation in any of the abdominal quadrants, no palpable masses. Extremities: No deformities, no lower extremity edema Skin: No rashes or pruritus, there is no sacral edema present at this time. Neurological: Intact cranial nerves with no focal neurologic deficits Goals of care and discharge plan discussed with the patient for over 25 years Case discussed with Dr. Monzon Consults/Reason for consult Cardiology was consulted for evaluation of heart failure. Operations or Procedures CHEST RADIOGRAPH INDICATION: sob TECHNIQUE: Single frontal view of the chest was obtained COMPARISON: XR CHEST 1 VIEW on DOS: 06/17/25, XR CHEST 1 VIEW on DOS: 05/18/25, XR CHEST 1 VIEW on DOS: 03/09/25 FINDINGS: Lines and Tubes: None Lungs: No focal consolidation. Pleura: No effusion. No pneumothorax. Cardiomediastinal contours: Cardiomegaly Bones: No acute osseous abnormality. IMPRESSION: 1. Improving pulmonary vascular congestion when compared to 05/04/2024. 2. Persistent cardiomegaly. Condition at Discharge: Stable Final Diagnosis/Problems List Acute on Chronic HFrEF exacerbation NSTEMI type 2 Pneumonitis, ruled out Acute chest pain, likely due to costochondritis CAD Microcytic anemia Possible LYUBOV likely due to VMN/hemodynamically mediated COPD, not in exacerbation Asthma, not in exacerbation Tobacco use Substance abuse Discharge Disposition: Home Discharge Instruct/Medications Diet: Regular Activity: No Restrictions, As Tolerated Follow Up/Referral: Follow up with PCP Follow up in discharge clinic next week Medications: per EMR Scheduled Amoxicillin Trihydrate (Amoxicillin), 1 TAB PO TID Cephalexin (Keflex Capsule), 1 CAP PO QID Empagliflozin (Jardiance), 10 MG PO DAILY Empagliflozin (Jardiance), 10 MG PO DAILY Furosemide (Lasix), 1 TAB PO DAILY Furosemide (Furosemide), 20 MG PO DAILY Gabapentin (Gabapentin), 100 MG PO BID Lisinopril (Lisinopril), 2.5 MG PO DAILY Losartan Potassium (Cozaar), 25 MG PO DAILY Metoprolol Tartrate (Lopressor), 12.5 MG PO BID Metoprolol Tartrate (Lopressor), 12.5 MG PO BID Prednisone (Prednisone), 10 MG PO DAILY Spironolactone (Aldactone), 12.5 MG PO DAILY Spironolactone (Aldactone), 25 MG PO DAILY Scheduled PRN Cyclobenzaprine HCl (Cyclobenzaprine Hydrochlo), 10 MG PO Q8HPRN PRN Hydrocodone-Acetaminophen (Hydrocodone Bitartrate/AC 5-325 mg), 1 TAB PO Q4HP PRN Hydrocodone-Acetaminophen (Hydrocodone Bitartrate/AC 5-325 mg), 1 TAB PO Q6HR PRN Discharge Statement: "Patient was advised to return to the ER or call 911 if any headaches, dizziness, shortness of breath, chest pain, abdominal pain, bleeding, fevers, or worsening of medical condition. Patient was counseled about treatment plan, medications, possible side effects, patientverbalized understanding. All questions were answered to the best of my ability. This discharge took greater then 30 minutes in planning, reviewing documentation, counseling the patient, and discussing with other team members." ASSESSMENT ASSESSMENT Assessment Acute on Chronic HFrEF exacerbation Visit Coding STANDARD RES Billing Provider: DIANA MONZON MD Date of Service if different f: Jun 26, 2025 HELEN NAVARRO RESIDENT Jun 26, 2025 16:28
--- NOTE | 2025-06-26 22:30 | DVHPN2 ---
Progress Note - Dictate Date Seen: Jun 26, 2025 Medical Necessity Reason Pt with a Central, PICC or Fol: No Subjective Patient was seen and evaluated in follow up. I recommend to continue medical management and optimization before an AICD placement may be considered. Patient is in agreement with the plan. BUN 30, FIBER ANALYST 1.07. Telemetry reviewed. vital signs Vital Sign Date Time Temp Pulse Resp B/P (MAP) Pulse Ox O2 Delivery O2 Flow Rate FiO2 06/26/25 14:24 36.7 98 06/26/25 13:03 18 109/76 (87) 98 06/26/25 08:00 Room Air* 0 21 Total Intake and Output 06/25/25 06/25/25 06/26/25 15:00 23:00 07:00 Intake Total 1200 ml 358 ml Output Total 0 ml Balance 1200 ml 358 ml medications Current Medications Medications Dose Ordered Sig/Nam Route Start Time Stop Time Status Last Admin Dose Admin Enoxaparin Sodium 40 mg DAILY SC 06/24/25 10:00 06/26/25 10:46 40 MG Spironolactone 25 mg DAILY PO 06/24/25 10:00 06/26/25 10:45 25 MG Pantoprazole Sodium 40 mg DAILY IV 06/24/25 10:00 06/26/25 10:45 40 MG Acetaminophen 650 mg Q6HR PO 06/24/25 07:00 06/26/25 12:23 650 MG Losartan Potassium 25 mg DAILY PO 06/24/25 09:00 06/26/25 10:46 25 MG Furosemide 40 mg DAILY IV 06/25/25 10:00 06/26/25 10:45 40 MG Metoprolol Tartrate 12.5 mg BID PO 06/24/25 14:15 06/26/25 10:46 12.5 MG Gabapentin 100 mg BID PO 06/24/25 22:00 06/26/25 10:46 100 MG Ketorolac Tromethamine 15 mg Q6HPRN PRN IV 06/25/25 15:15 06/30/25 15:14 06/26/25 03:44 15 MG objective GENERAL: Alert and oriented x 3. No acute distress. EYES: PERRL, EOMI. Anicteric. HENT: Moist mucous membranes. LUNGS: Clear to auscultation bilaterally. CARDIOVASCULAR: Regular rate and rhythm. ABDOMEN: Soft, non-tender and non-distended. EXTREMITIES: No edema. NEUROLOGIC: No focal neurological deficits. SKIN: Warm, dry. laboratory and microbiology Laboratory Tests 06/26/25 05:26 06/25/25 06:31 Test 06/26/25 05:26 Range/Units Serum Glucose 119 H 74-106 mg/dL Problem List Acute on chronic heart failure with reduced ejection fraction. Acute chest pain, likely costochondritis. NSTEMI likely type 2. S/P recent coronary angiogram at the [facility], no stents. Active methamphetamine use. Assessment/Plan Continued all current supportive medical care. Diuretics with Lasix. DVT and GI prophylactics. Losartan. Additional plan as per the hospital course. Plan discussed with: Patient FAHAD DE LA ROSA MD Jun 26, 2025 17:23
--- NOTE | 2025-06-28 15:28 | DVHSR ---
APPROVED REPORT EXAM: Two-dimensional and M-mode echocardiogram with Doppler and color Doppler. Blood Pressure: 115/83 mmHg INDICATION EF RISK FACTORS Height: 5'3", Weight: 165 DIMENSIONS LVDd 6.1 (3.8-5.7cm) LA (2D) 4.9 (1.9-4.0cm) Aortic Root 2.9 (2.0-3.7cm) LVDs 5.5 (2.5-4.0cm) LA (MM) (1.9-4.0cm) Aortic Cusp Exc 1.7 (1.5-2.0cm) EF (%) 21.0 (55-70%) Rt. Atrium 4.6 (1.9-4.0cm) Asc. Aorta 2.7 cm IVSd 1.1 (0.7-1.1cm) RV (D) 4.0 (1.8-2.4cm) PWd 0.9 (0.7-1.1cm) Mitral Valve Mitral Mitral Stenosis E wave 1.11m/s MV Mean GR. mmHg E/A ratio 0.0 2D MVA cm2 Aortic Valve Aortic Valve Aortic Stenosis V1 0.61m/s AO Mean GR. 3mmHg V2 1.14m/s AO Peak GR. 5mmHg LVOT Diameter 2.5 (1.8-2.4cm) Doppler PLACIDO 2.63cm2 Pulmonic Valve V2 0.87m/s Tricuspid Valve TR Velocity 2.91m/s RVSP 42mmHg Conclusion LAE CAMELIA SEVERE YT SEVERE MT EF <20% LVE
== END 2025-06-26 19:31 | disposition home or self-care (01) | DRG 203 ==
LOC: EDBD 12:34 → EDSEX 12:34 → ER 12:34 → EDUNIT# 12:34 → OVERFLOW 23:49 → TELE-WESTW 06-25 22:02
PROVIDERS: ADMIT Student in an Organized Health Care Education/Training Program; ATTEND Student in an Organized Health Care Education/Training Program
DX: M94.0 Chondrocostal junction syndrome [Tietze] (principal); N17.0 Acute kidney failure with tubular necrosis; I50.23 Acute on chronic systolic (congestive) heart failure; I21.A1 Myocardial infarction type 2; F15.90 Other stimulant use, unspecified, uncomplicated; D50.9 Iron deficiency anemia, unspecified; I42.0 Dilated cardiomyopathy; I11.0 Hypertensive heart disease with heart failure; J44.89 Other specified chronic obstructive pulmonary disease; F17.210 Nicotine dependence, cigarettes, uncomplicated; F41.9 Anxiety disorder, unspecified; I25.10 Atherosclerotic heart disease of native coronary artery without angina pectoris; Z98.51 Tubal ligation status; Z83.3 Family history of diabetes mellitus; Z82.49 Family history of ischemic heart disease and other diseases of the circulatory system; Z82.0 Family history of epilepsy and other diseases of the nervous system; Z79.899 Other long term (current) drug therapy; Z91.199 Patient's noncompliance with other medical treatment and regimen due to unspecified reason
CPT/HCPCS: 36415; 71045; 80048; 80053; 80061; 80307; 80320; 81001; 82728; 83540; 83550; 83605; 83735; 83880; 84100; 84484; 85025; 85379; 93005; 93306; 96361; 96374; 96375; G0378; J1885; J2405; J2470